=== PATIENT | male | born 1945 | race Caucasian/White ===

== ENCOUNTER → 2020-01-12 14:09 | Outpatient (BNVA) | payer MEDICARE, OTHER, SELFPAY | PROVIDERS: PCP Internal Medicine; Referring Provider Internal Medicine; Visit Provider Internal Medicine Endocrinology, Diabetes & Metabolism | DX: E11.65 Type 2 diabetes mellitus with hyperglycemia (principal); E11.3599 Type 2 diabetes mellitus with proliferative diabetic retinopathy without macular edema, unspecified eye; E11.42 Type 2 diabetes mellitus with diabetic polyneuropathy; Z79.4 Long term (current) use of insulin; E21.3 Hyperparathyroidism, unspecified; E78.5 Hyperlipidemia, unspecified; I10 Essential (primary) hypertension; Z79.899 Other long term (current) drug therapy | CPT/HCPCS: 82947; 99214 ==

== ENCOUNTER 2020-09-04 13:55 | Emergency (ER) | payer MEDICARE, OTHER, SELFPAY | END 2020-09-04 16:25 | disposition left against medical advice (07) | PROVIDERS: Emergency Provider Emergency Medicine; PCP Internal Medicine | DX: M79.605 Pain in left leg (principal) ==

== ENCOUNTER 2020-09-05 12:06 | Emergency (ER) | payer MEDICARE, OTHER, SELFPAY ==
--- NOTE | ~2020-09-05 | XR_ITS ---
EXAMINATION: XR LUMBOSACRAL SPINE CLINICAL INFORMATION: Back pain. COMPARISON: None TECHNIQUE: Three views of the lumbosacral spine. FINDINGS: Moderate to severe degenerative disc disease is seen at L4-L5 and L5-S1, more pronounced at L5-S1 with disc space narrowing, sclerosis and adjacent endplates and prominent marginal osteophyte formation. There is normal spinal alignment. No acute fracture is seen. The soft tissues are unremarkable. XR/XR lumbar spine 2-3V IMPRESSION: L4-L5 and L5-S1 moderate to severe degenerative disc disease. No acute abnormality.
--- NOTE | ~2020-09-05 | XR_ITS ---
EXAMINATION: XR HIP, LEFT CLINICAL INFORMATION: Sciatic pain COMPARISON: Radiographs lumbar spine 09/05/2020. TECHNIQUE: Two views of the left hip and AP pelvis. FINDINGS: The left hip shows no fracture or dislocation. No focal joint narrowing or erosive change. The bony pelvis appears intact. There is no diastases SI joints or pubis. There are degenerative changes lower lumbar spine with disc narrowing and vertebral spurring. XR/XR hip LT min 2V IMPRESSION: 1. Unremarkable left hip. 2. Degenerative disc changes lower lumbar spine.
[2020-09-05 13:15] VITALS: BP 180/82; PULSE 62; RESP 18; TEMP 36.6; O2SAT 98; BMI 29.8
[2020-09-05] MEDS: Acetaminophen 325 MG TABLET 650 MG PO (14:15)
--- NOTE | 2020-09-05 14:31 | ED_ITS ---
HPI - Back Pain/Injury General Chief Complaint: Back Pain/Injury Stated Complaint: Sciatica pain Time Seen by Provider: 09/05/20 13:43 Source: patient Mode of arrival: ambulatory Limitations: no limitations History of Present Illness HPI Narrative: 75-year-old male with history of diabetes, diabetic neuropathy, hypertension, who presents the emergency department with worsening left low back pain with radiation down the left leg. Patient states he has felt this many times before states he knows he has sciatic on and it will typically flare and improve on its own however patient has had this discomfort over the last month without improvement. He tried to make an appointment with his primary care doctor who could not see him until November. He has been taking naproxen with minimal relief. States it is worse when he sits or lays down. States he is actually able to walk around without significant difficulty but when he goes to sit he is in excruciating pain. Denies any issues with urinating or stooling. Denies any numbness or tingling in the private region. Denies any chest pain, shortness breath, abdominal pain. Due to concern and frustration he felt he needed to be seen. Related Data Home Medications Medication Instructions Recorded Confirmed blood sugar diagnostic #10 ea 01/12/20 01/12/20 lancets 30 gauge #100 ea 01/12/20 01/12/20 multivitamin 1 tab PO DAILY 01/12/20 01/12/20 omega-3 fatty acids-fish oil 340 1 cap PO DAILY 01/12/20 01/12/20 mg-1,000 mg capsule Previous Rx's Medication Instructions Recorded aspirin 81 mg tablet,delayed 81 mg PO DAILY 30 Days #30 tab 01/05/20 release blood sugar diagnostic #300 ea 01/12/20 insulin degludec 100 unit/mL (3 30 unit SUBCUT DAILY #45 ml 01/12/20 mL) subcutaneous pen lancets 33 gauge #300 ea 01/12/20 pen needle, diabetic 32 gauge x #450 ea 01/12/20 gabapentin 100 mg capsule 200 mg PO BEDTIME 90 Days #180 cap 01/19/20 lisinopril 40 mg tablet 40 mg PO DAILY #90 tab 03/12/20 pravastatin 40 mg tablet 40 mg PO DAILY #90 tab 03/13/20 insulin aspart U-100 100 unit/mL 1 - 25 unit SUBCUT TID 30 Days #45 05/01/20 (3 mL) subcutaneous pen ml isosorbide mononitrate 60 mg 60 mg PO DAILY #90 tab 07/10/20 tablet,extended release 24 hr dulaglutide 1.5 mg/0.5 mL 1.5 mg SUBCUT QWEEK 90 Days #6.5 ml 08/13/20 subcutaneous pen injector naproxen 500 mg tablet 500 mg PO Q12H PRN 30 Days #60 tab 09/02/20 acetaminophen [Tylenol] 650 mg PO Q6H PRN #60 tab 09/05/20 cyclobenzaprine 5 mg PO TID PRN 5 Days #15 tab 09/05/20 Allergies Allergy/AdvReac Type Severity Reaction Status Date / Time Seafood Allergy Mild DIFFICULTY Uncoded 12/14/19 15:29 BREATHING Review of Systems Review of Systems: Constitutional : No Weight loss, No Fever, No Chills, No Night Sweats, No Fatigue, No Malaise ENT/Mouth : No Hearing loss, No Ear Pain, No Nasal Congestion, No Sinus Pain, No Hoarseness, No sore throat, No Rhinorrhea, No Swallowing Difficulty Eyes: No Eye Pain, No Swelling, No Redness, No Foreign Body, No Discharge, No Vision Changes Cardiovascular : No Chest Pain, No SOB, No Dyspnea on Exertion, No Orthopnea, No Edema, No Palpitations Respiratory : No Cough, No Sputum, No Wheezing, No Smoke Exposure, No Dyspnea Gastrointestinal : No Nausea, No Vomiting, No Diarrhea, No Constipation, No abdominal Pain, No Hematochezia, No Melena Genitourinary : no irregular bleeding, No Dysuria, No Urinary Frequency, No Hematuria, No Urinary Incontinence, No Urgency, No Flank Pain, No Urinary Flow Changes, No Hesitancy Musculoskeletal : + back pain, No joint pain, + Myalgias, No Joint Swelling Skin : No Skin Lesions, No rash Neuro : No Weakness, No Numbness, No Paresthesias, No Loss of Consciousness, No Dizziness, No Headache Psych : No Anxiety/Panic, No Depression, No SI/HI/AH/VH, No Social Issues, Heme/Lymph: No Bruising, No Bleeding,No Lymphadenopathy Endocrine : No Polyuria, No Polydipsia, No Temperature Intolerance [facility] Past Medical History Attestation statement: The following information was validated with the patient. Source: old records reviewed and nursing notes reviewed Medical History (Updated 09/05/20 @ 15:38 by JARED Tracy) Diabetes type 2, uncontrolled Diabetic polyneuropathy associated with type 2 diabetes mellitus Dyslipidemia Hyperparathyroidism Hypertension detention (current) use of insulin Long-term use of aspirin therapy Proliferative diabetic retinopathy Surgical History (Updated 01/12/20 @ 11:22 by Bethany Patterson LPN) Hx of heart surgery Family History Family History (Updated 01/12/20 @ 11:23 by Bethany Patterson LPN) Father No problems noted. Mother Diabetes Physical Exam Vital Signs: Vital Signs: Last Vital Signs Temp 98 F 09/05/20 13:15 Pulse 62 09/05/20 13:15 Resp 18 09/05/20 13:15 BP 180/82 H 09/05/20 13:15 Pulse Ox 98 09/05/20 13:15 Body Mass Index 29.8 vital signs have been reviewed as normal and appeared to be correct. Blood pressure normal. Heart rate normal. Respiration rate normal. Temperature normal. Oxygen saturation normal. Appearance: Alert. Oriented X3. No acute distress. Head: Normal external exam. Normocephalic. Atraumatic. No Crews signs noted. No raccoon eyes noted Eyes: Conjunctiva and sclera normal. ENT: EAC normal. Moist mucous membranes. No drooling noted. No muffled voice noted. Neck: Normal inspection. Neck supple. FROM. No meningeal signs. CVS: Pulses normal throughout. Respiratory: No respiratory distress. Painless inspiration. No accessory muscle usage noted Abdomen: No visible injury noted. Soft nd/nt Back: Full range of motion noted. No midline lumbar pain to palpation. Skin: Skin warm and dry. Normal skin color. Normal skin turgor. Extremities: No lower extremity edema. Extremities exhibit normal range of motion. No reproducible pain to palpation. Good distal pulses, sensation intact. Neuro: Oriented X 3. No motor deficit. No sensory deficit. Course Reevaluation(s) Reevaluation #1: Patient's x-ray with evidence of severe degenerative changes in the lumbar spine normal hip x-ray. Had Case Management set up outpatient physi nereida therapy for patient. Will discharge home with cyclobenzaprine to use as well as recommendations for the additional Tylenol for pain control. Will also contact patient's primary care doctor to ensure close follow-up. Patient is comfortable with this plan will discharge home at this time. MDM - Back Pain/Injury MDM Narrative Medical decision making narrative: Patient's vital signs are stable and she is afebrile. Patient presenting to the emergency department with acute on chronic left low back pain with radiation into the left leg consistent with sciatica. Given patient's age will obtain a plain film of the left hip and left lumbar spine to ensure the absence of acute fracture. Patient without any gross neurologic deficits no acute concern for SCA or cauda equina syndrome. Patient with full range of motion of left hip no acute concern for septic joint. Patient already taking naproxen will give oral dose of Tylenol. Feel the patient would highly benefit from physical therapy to help with this acute inflammation as well as muscle relaxer for home if x-rays are normal will con tinue to monitor reassess pending the bowel. Of note no acute concern for UTI no flank pain no CVA tenderness. Discharge Plan Discharge Clinical Impression: Sciatica Qualifiers: Laterality: left Qualified Code(s): M54.32 - Sciatica, left side Back pain Qualifiers: Back pain location: low back pain Chronicity: acute Back pain laterality: left Sciatica presence: with sciatica Sciatica laterality: sciatica of left side Qualified Code(s): M54.42 - Lumbago with sciatica, left side Patient Disposition: Home, Self-Care Instructions: Sciatica (ED) Additional Instructions: You were seen in the emergency department today for left-sided back pain that r adiates down the leg. An x-ray of the hip was performed and was normal. An x- ray of the back was performed showing L4-L5, L5-S1 degenerative joint and disc disease which is likely causing compression on one of your nerves in sending pain down the left leg. This is also known as sciatica. Continue taking naproxen as directed. He will be prescribed Tylenol as well to use for pain and a short course of a muscle relaxer to help with muscular spasm. You were referred to physical therapy today someone should be in touch to schedule your 1st appointment. You were scheduled for a follow-up appointment with your primary care doctor Dr. Mullen for September 18 at 12:45 please do not miss this appointment. Continue to encourage fluids for hydration. Continue to stay active this is very important. Please return to the ED if her pain gets significantly worse, you cannot pee or poop or you develop a high fever. Prescriptions: New acetaminophen [Tylenol] 325 mg tablet 650 mg PO Q6H PRN (Reason: pain) Qty: 60 RF: 0 cyclobenzaprine 5 mg tablet 5 mg PO TID PRN (Reason: muscle spasm) 5 Days Qty: 15 RF: 0 No Action aspirin 81 mg tablet,delayed release (DR/EC) 81 mg PO DAILY 30 Days Qty: 30 RF: 11 gabapentin 100 mg capsule 200 mg PO BEDTIME 90 Days Qty: 180 RF: 3 lisinopril 40 mg tablet 40 mg PO DAILY Qty: 90 RF: 1 pravastatin 40 mg tablet 40 mg PO DAILY Qty: 90 RF: 1 insulin aspart U-100 [Novolog Flexpen U-100 Insulin] 100 unit/mL (3 mL) insulin pen 1 - 25 unit subcut TID 30 Days Qty: 45 RF: 3 isosorbide mononitrate 60 mg tablet extended release 24 hr 60 mg PO DAILY Qty: 90 RF: 1 dulaglutide [Trulicity] 1.5 mg/0.5 mL pen injector 1.5 mg subcut QWEEK 90 Days Qty: 6.5 RF: 1 naproxen 500 mg tablet 500 mg PO Q12H PRN (Reason: pain) 30 Days Qty: 60 RF: 6 (DME) OneTouch Verio test strips Strip See Rx Instructions ea Not Applicable .MEDSUPPLY Qty: 10 RF: 0 (DME) lancets 30 gauge misc See Rx Instructions ea .ROUTE .MEDSUPPLY Qty: 100 RF: 0 Fish Oil 340-1,000 mg capsule 1 cap PO DAILY RF: 0 multivitamin Tablet 1 tab PO DAILY RF: 0 insulin degludec 100 unit/mL (3 mL) insulin pen 30 unit subcut DAILY Qty: 45 RF: 4 (DME) pen needle, diabetic 32 gauge x 5/32 needle See Rx Instructions ea subcut .MEDSUPPLY Qty: 450 RF: 1 (DME) OneTouch Verio test strips Strip See Rx Instructions .ROUTE .MEDSUPPLY Qty: 300 RF: 3 (DME) lancets [OneTouch Delica Lancets] 33 gauge misc See Rx Instructions .ROUTE .MEDSUPPLY Qty: 300 RF: 3 Referrals: Zaria Barnes MD [Primary Care Provider] - 09/18/20 12:45 pm (For Follow Up appointment! Do not miss this appointment) Interventions: ED Discharge Assessment Last Done: 09/05/20 16:07 Discharge Date/Time: 09/05/20 16:08 Print Language: Uzbek
--- NOTE | 2020-09-05 15:31 | MHC.CM.ED ---
Received case management consult from Manisha. Patient came to ER due to sciatica pain. Work up is essentially negative. Patient will need physical therapy. Met with patient in regards to discharge planning. Patient lives with his , ambulates independently and had no services prior to coming to the ER. Patient had his 2nd Pfizer in June. Home physical therapy offered. Patient requesting outpatient therapy at [facility] [place] [place] [facility]. T/W spoke with Dr Sebas Page s office. They will order outpatient physical therapy eval. Patient, Sindhu COKER and Manisha COLEMAN aware. Continue to monitor for d/c needs.
== END 2020-09-05 16:08 | disposition home or self-care (01) ==
PROVIDERS: Emergency Provider Emergency Medicine Emergency Medical Services; PCP Internal Medicine
DX: M54.42 Lumbago with sciatica, left side (principal); I10 Essential (primary) hypertension; E78.5 Hyperlipidemia, unspecified; E11.9 Type 2 diabetes mellitus without complications; Z79.4 Long term (current) use of insulin; Z79.82 Long term (current) use of aspirin
CPT/HCPCS: 72100; 73502; 99284

== ENCOUNTER 2020-09-10 13:20 | Outpatient (REF) | payer MEDICARE, OTHER, SELFPAY ==
[2020-09-10 15:08] LABS: Hematocrit 42.6 % (42-52); Mean Corpuscular HGB Conc 32.9 g/dl (31.0-36.0); Mean Corpuscular Hemoglobin 27.5 pg (27.0-33.0); Mean Corpuscular Volume 83.5 fL (80-98); Mean Platelet Volume 12.3 fL (9.4-12.4); Platelet Count 285 X10*3/uL (160-400); Red Cell Distribution Width 14.1 % (11.0-16.0); White Blood Count 10.2 X10*3/uL (4.8-10.8)
[2020-09-10 15:48] LABS: Alanine Aminotransferase 11 U/L (0-40); Albumin Level 3.9 g/dL (3.5-5.0); Alkaline Phosphatase 80 U/L (39-117); Anion Gap 10 (12-20); Aspartate Amino Transferase 21 U/L (5-37); Bilirubin Total 0.6 mg/dL (0.0-1.0); Blood Urea Nitrogen 21 mg/dL (9-16); Calcium 10.5 mg/dL (8.4-10.2); Carbon Dioxide 29 mmol/L (22-29); Chloride 107 mmol/L (96-108); Cholesterol 135 mg/dL; Estimated Glomerular Filt Rate > 60; Glucose Random 116 mg/dL (60-115); HDL Cholesterol 44 mg/dL; LDL Cholesterol Calculated 72 mg/dl; Potassium 5.1 mmol/L (3.3-5.1); Sodium 141 mmol/L (135-145); Total Protein 6.9 g/dL (6.5-8.0); Triglycerides 96 mg/dL
[2020-09-10 15:59] LABS: Vitamin B12 > 2000 pg/mL (200-900)
[2020-09-10 16:05] LABS: Creatinine Urine 117.63 mg/dL; Microalbum/Creatinine Ratio Ur 28.9 ug/mg cr
[2020-09-11 19:11] LABS: LDL Cholesterol Direct 79 mg/dL (<100)
[2020-09-13 23:32] LABS: Fructosamine 286 umol/L (205-285)
== END 2020-09-10 13:21 | disposition home or self-care (01) ==
LOC: HO.LAB 13:20
PROVIDERS: PCP Internal Medicine; Visit Provider Internal Medicine Endocrinology, Diabetes & Metabolism
DX: E11.65 Type 2 diabetes mellitus with hyperglycemia (principal); E11.42 Type 2 diabetes mellitus with diabetic polyneuropathy; E11.3599 Type 2 diabetes mellitus with proliferative diabetic retinopathy without macular edema, unspecified eye; E78.5 Hyperlipidemia, unspecified; I10 Essential (primary) hypertension; E21.3 Hyperparathyroidism, unspecified; Z79.4 Long term (current) use of insulin
CPT/HCPCS: 36415; 80053; 80061; 82043; 82607; 82947; 82985; 83721; 85027; 99212

== ENCOUNTER 2020-09-12 12:48 | Outpatient (REF) | payer MEDICARE, OTHER, SELFPAY ==
--- NOTE | ~2020-09-12 | MM_ITS ---
EXAMINATION: BONE DENSITOMETRY CLINICAL INDICATION: Hyperparathyroidism, unspecified. COMPARISON: None (current study represents initial baseline exam). TECHNIQUE: Using a Optifreeze DXA System (software version: 13.1) manufactured by [employer], dual-energy x-ray absorptiometry was performed of the lumbar spine and left forearm radius 33%. The images are of good technical quality. Summary results are attached. FINDINGS: AP SPINE L1-L3 (excluding L4): The data of L1-L4 has been changed to exclude the L4 vertebral body, because degenerative changes at this level may cause overestimation of lumbar spine density. BMD 1.110 g/cm2, Z-score -0.4, T-score -0.8, normal. LEFT FEMUR, NECK: BMD 1.051 g/cm2, Z-score 1.1, T-score -0.1, normal. LEFT FEMUR, TOTAL: BMD 1.002 g/cm2, Z-score 0.0, T-score -0.7, normal. LEFT FOREARM RADIUS 33%: BMD 0.855 g/cm2, Z-score -0.4, T-score -1.4, osteopenia. IDENTIFIED RISK FACTORS: Height loss, hyperparathyroid, secondary osteoporosis, anticonvulsant. HISTORY OF FRACTURE: None listed. MEDICATIONS: Vitamin D, multivitamin. MM/XR DEXA appendicular skeleton IMPRESSION: 1. DIAGNOSIS: Osteopenia based on the lowest T-score value of -1.4 in the forearm radius 33% applying World Health Organization criteria. 2. 10-YEAR FRACTURE RISK PREDICTION, FRAX: Major osteoporotic fracture (clinical spine, forearm, hip or shoulder) 2.6%. Hip fracture 0.4%. 3. Treatment Recommendations: NOF guidelines recommend consideration for treatment in postmenopausal women and men age 50 and older presenting with the following: -A hip or vertebral (clinical or morphometric) fracture. -T-score less than or equal to -2.5 at the femoral neck or spine after appropriate evaluation to exclude secondary causes. -Low bone mass at the hip or spine and a 10-year fracture probability by FRAX of greater than or equal to 3% for hip fracture or greater than or equal to 20% for major osteoporotic fracture based on the [place] adapted WHO algorithm. 4. Other Recommendations: All treatment decisions require clinical judgment and consideration of individual patient factors, including patient preferences, comorbidities, previous drug use, risk factors not captured in the FRAX model (e.g. frailty, falls, vitamin D deficiency, increased bone turnover, interval significant decline in bone density) and possible under or overestimation of fracture risk by FRAX. Additional medical evaluation for secondary cause of low bone mineral density may be appropriate. FUTURE SCAN RECOMMENDATION: People with diagnosed cases of osteoporosis or at high risk for fracture should have regular bone mineral density tests. For patients eligible for Medicare, routine testing is allowed once every 2 years. The testing frequency can be increased to one year for patients who have rapidly progressing disease, those who are receiving or discontinuing medical therapy to restore bone mass, or have additional risk factors.
== END 2020-09-12 12:49 | disposition home or self-care (01) ==
LOC: HO.MAMMO 12:48
PROVIDERS: PCP Internal Medicine; Visit Provider Internal Medicine Endocrinology, Diabetes & Metabolism
DX: M81.8 Other osteoporosis without current pathological fracture (principal); E21.0 Primary hyperparathyroidism; Z79.899 Other long term (current) drug therapy
CPT/HCPCS: 77081

== ENCOUNTER 2020-09-17 06:51 | Outpatient (REF) | payer MEDICARE, OTHER, SELFPAY ==
--- NOTE | ~2020-09-17 | US_ITS ---
EXAMINATION: US THYROID CLINICAL INFORMATION: Hyperparathyroidism COMPARISON: None TECHNIQUE: Linear transducer grayscale and color Doppler examination with attention to the region of the thyroid. FINDINGS: SIZE: Measurements of the thyroid lobes and nodules are given in sagittal, anteroposterior and transverse dimensions respectively. Right Thyroid Lobe: 4.6 x 1.5 x 1.5 cm, volume 5.4 mL. Parenchyma: The gland echotexture is homogeneous. Thyroid vascularity is normal. Left Thyroid Lobe: 4.0 x 1.5 x 1.7 cm, volume 5.3 mL. Parenchyma: The gland echotexture is homogeneous. Thyroid vascularity is normal. Isthmus: 0.4 cm in maximum AP dimension. Estimated total number of nodules greater than or equal to 1 cm: 0. Hydrogen Treater nodules are described as follows: 1. Location: Inferior isthmus. Size: 0.6 x 0.9 x 0.8 cm, volume 0.23 mL. Nodule characteristics: Composition: Solid (2). Echogenicity: Isoechoic (1). Shape: Not taller than wide (0). Margins: Smooth (0). Echogenic Foci: None (0). ACR TI-RADS total points: 3 ACR TI-RADS category: 3 2. Location: Right mid. Size: 0.2 x 0.2 x 0.2 cm, volume 0.004 mL. Nodule characteristics: Composition: Cystic(0). ACR TI-RADS total points: 0 ACR TI-RADS category: 1 NODES: No lymphadenopathy is seen in the tissue surrounding the thyroid gland. There is a 4 x 5 x 9 mm solid hypoechoic lesion posterior to the lower right thyroid lobe. This does not appear hypervascular. There is a 8 x 4 x 3 mm hyperechoic lesion posterior to the lower left thyroid lobe. This does not appear vascular. US/US thyroid IMPRESSION: Small thyroid nodules. Bilateral nonspecific soft tissue nodules inferior to the thyroid gland. These do not have typical ultrasound appearance of parathyroid adenomas, i.e. hypoechoic and hypervascular. ACR TI-RADS RECOMMENDATION REFERENCE: Ultrasound-guided fine-needle aspiration, followup ultrasound, no further follow up. * TR1 (0 point) and TR 2 (2 points): No FNA or follow up * TR3 (3 points): FNA if more than or equal to 2.5 cm in maximum dimension, followup ultrasound in 1, 3 and 5 years if 1.5 to 2.4 cm in maximum dimension. * TR4 (4-6 points): FNA if more than or equal to 1.5 cm in maximum dimension, followup ultrasound in 1, 2, 3 and 5 years if 1 to 1.4 cm in maximum dimension. * TR5 (more than or equal to 7 points): FNA if more than or equal to 1 cm in maximum dimension, followup ultrasound every year for 5 years if 0.5 to 0.9 cm in maximum dimension. * TR3, TR4 or TR5 nodules that are below the size threshold for follow up receive no follow up.
[2020-09-17 08:14] LABS: Alanine Aminotransferase 13 U/L (0-40); Albumin Level 3.9 g/dL (3.5-5.0); Alkaline Phosphatase 78 U/L (39-117); Anion Gap 10 (12-20); Aspartate Amino Transferase 20 U/L (5-37); Bilirubin Total 0.5 mg/dL (0.0-1.0); Blood Urea Nitrogen 25 mg/dL (9-16); Carbon Dioxide 29 mmol/L (22-29); Chloride 107 mmol/L (96-108); Estimated Glomerular Filt Rate > 60; Glucose Fasting 95 mg/dL (60-99); Magnesium 1.7 mg/dL (1.6-2.6); Phosphorus 2.8 mg/dL (2.7-4.5); Potassium 4.7 mmol/L (3.3-5.1); Sodium 141 mmol/L (135-145); Total Protein 6.9 g/dL (6.5-8.0)
[2020-09-17 08:38] LABS: Vitamin D 25-OH Total 44.4 ng/mL (>30)
[2020-09-18 12:22] LABS: Calcium (PTHI) 10.1 mg/dL (8.6-10.3); PTHI 61 pg/mL (14-64)
[2020-09-18 14:02] LABS: Calcium, Ionized 5.7 mg/dL (4.8-5.6)
[2020-09-21 09:17] LABS: Alkaline Phosphatase Bone 10.4 mcg/L (see note)
[2020-09-21 11:42] LABS: VITAMIN D (1,25 OH) D3 39 pg/mL; Vit D (1,25-Dihydroxy) Total 39 pg/mL (18-72); Vitamin D (1,25 OH) D2 <8 pg/mL
== END 2020-09-17 06:52 | disposition home or self-care (01) ==
LOC: HO.HMGCX 06:51
PROVIDERS: PCP Internal Medicine; Visit Provider Internal Medicine Endocrinology, Diabetes & Metabolism
DX: E21.3 Hyperparathyroidism, unspecified (principal)
CPT/HCPCS: 36415; 76536; 80053; 82306; 82330; 82652; 83735; 83970; 84075; 84100

== ENCOUNTER 2020-09-23 13:15 | Outpatient (REF) | payer MEDICARE, OTHER, SELFPAY ==
[2020-09-23 14:07] LABS: Total Volume 24 Hour Urine 3000 mL
[2020-09-23 14:09] LABS: Creatinine, 24Hr Urine 1.2 G/Day (1.0-2.0); Creatinine, mg/dL 40.51
[2020-09-24 19:27] LABS: Calcium, 24 Hr Urine 219 mg/24 h; Calcium/Creatinine Ratio 170 mg/g creat (30-210); Creatinine 24Hr Urine 1.29 g/24 h (0.50-2.15)
== END 2020-09-23 13:16 | disposition home or self-care (01) ==
LOC: HO.LNP 13:15
PROVIDERS: Visit Provider Internal Medicine Endocrinology, Diabetes & Metabolism
DX: E21.3 Hyperparathyroidism, unspecified (principal)
CPT/HCPCS: 82340; 82570

== ENCOUNTER 2020-11-13 14:54 | Outpatient (RCR) | payer MEDICARE, OTHER, SELFPAY | END 2021-05-23 14:24 | disposition home or self-care (01) | LOC: HO.PT 14:54 | PROVIDERS: PCP Internal Medicine; Visit Provider Internal Medicine | DX: E11.42 Type 2 diabetes mellitus with diabetic polyneuropathy (principal) ==

== ENCOUNTER 2021-08-21 15:20 | Outpatient (REF) | payer MEDICARE, OTHER, SELFPAY ==
[2021-08-21 18:08] LABS: Creatinine Urine 193.76 mg/dL; Microalbum/Creatinine Ratio Ur 12.9 ug/mg cr
[2021-08-22 14:21] LABS: Calcium (PTHI) 10.4 mg/dL (8.6-10.3); PTHI 61 pg/mL (16-77)
== END 2021-08-21 15:21 | disposition home or self-care (01) ==
LOC: HO.LAB 15:20
PROVIDERS: PCP Internal Medicine; Visit Provider Internal Medicine Endocrinology, Diabetes & Metabolism
DX: E11.65 Type 2 diabetes mellitus with hyperglycemia (principal); E21.3 Hyperparathyroidism, unspecified; E04.1 Nontoxic single thyroid nodule
CPT/HCPCS: 36415; 82043; 82947; 83970; 99212

== ENCOUNTER → 2021-09-15 13:10 | Outpatient (BNVA) | payer MEDICARE, OTHER, SELFPAY | PROVIDERS: PCP Internal Medicine; Visit Provider Registered Nurse Diabetes Educator | DX: E11.9 Type 2 diabetes mellitus without complications (principal); Z71.89 Other specified counseling | CPT/HCPCS: 99211 ==

== ENCOUNTER 2022-01-01 07:55 | Outpatient (REF) | payer MEDICARE, OTHER, SELFPAY ==
[2022-01-01 10:28] LABS: Alanine Aminotransferase 16 U/L (0-40); Alkaline Phosphatase 82 U/L (39-117); Anion Gap 14 (12-20); Aspartate Amino Transferase 23 U/L (5-37); Bilirubin Total 0.7 mg/dL (0.0-1.0); Blood Urea Nitrogen 20 mg/dL (9-16); Carbon Dioxide 30 mmol/L (22-29); Chloride 103 mmol/L (96-108); Cholesterol 155 mg/dL; Estimated Glomerular Filt Rate > 60; Glucose Fasting 97 mg/dL (60-99); HDL Cholesterol 47 mg/dL; LDL Cholesterol Calculated 93 mg/dl; Potassium 4.6 mmol/L (3.3-5.1); Sodium 142 mmol/L (135-145); Total Protein 7.1 g/dL (6.5-8.0); Triglycerides 76 mg/dL
[2022-01-01 10:35] LABS: Vitamin D 25-OH Total 45.6 ng/mL (>30)
[2022-01-01 10:45] LABS: Creatinine Urine 53.24 mg/dL; Microalbum/Creatinine Ratio Ur 18.7 ug/mg cr
[2022-01-02 13:22] LABS: PTHI 69 pg/mL (16-77)
[2022-01-07 06:12] LABS: Calcium, Ionized 5.5 mg/dL (4.8-5.6)
== END 2022-01-01 07:56 | disposition home or self-care (01) ==
LOC: HO.LAB 07:55
PROVIDERS: PCP Internal Medicine; Visit Provider Internal Medicine
DX: E78.5 Hyperlipidemia, unspecified (principal); E21.3 Hyperparathyroidism, unspecified; E11.42 Type 2 diabetes mellitus with diabetic polyneuropathy
CPT/HCPCS: 36415; 80053; 80061; 82043; 82306; 82330; 83970

== ENCOUNTER 2022-01-30 06:02 | Outpatient (REF) | payer MEDICARE, OTHER, SELFPAY ==
[2022-01-30 07:58] LABS: Creatinine Urine 153.11 mg/dL; Microalbum/Creatinine Ratio Ur 24.8 ug/mg cr
[2022-01-30 08:05] LABS: Alanine Aminotransferase 19 U/L (0-40); Albumin Level 4.1 g/dL (3.5-5.0); Alkaline Phosphatase 101 U/L (39-117); Anion Gap 14 (12-20); Aspartate Amino Transferase 23 U/L (5-37); Bilirubin Total 0.5 mg/dL (0.0-1.0); Blood Urea Nitrogen 21 mg/dL (9-16); Calcium 10.3 mg/dL (8.4-10.2); Carbon Dioxide 28 mmol/L (22-29); Chloride 102 mmol/L (96-108); Cholesterol 152 mg/dL; Estimated Glomerular Filt Rate > 60; Glucose Fasting 134 mg/dL (60-99); HDL Cholesterol 47 mg/dL; LDL Cholesterol Calculated 77 mg/dl; Potassium 4.1 mmol/L (3.3-5.1); Sodium 140 mmol/L (135-145); Total Protein 7.2 g/dL (6.5-8.0); Triglycerides 144 mg/dL
[2022-01-30 08:28] LABS: Vitamin D 25-OH Total 47.3 ng/mL (>30)
== END 2022-01-30 06:03 | disposition home or self-care (01) ==
LOC: HO.LAB 06:02
PROVIDERS: PCP Internal Medicine; Visit Provider Internal Medicine
DX: E55.9 Vitamin D deficiency, unspecified (principal); E78.5 Hyperlipidemia, unspecified; E11.65 Type 2 diabetes mellitus with hyperglycemia
CPT/HCPCS: 36415; 80053; 80061; 82043; 82306

== ENCOUNTER → 2022-02-18 12:17 | Outpatient (BNVA) | payer MEDICARE, OTHER, SELFPAY | PROVIDERS: PCP Internal Medicine; Visit Provider Internal Medicine Endocrinology, Diabetes & Metabolism | DX: E11.65 Type 2 diabetes mellitus with hyperglycemia (principal); E21.3 Hyperparathyroidism, unspecified; E04.1 Nontoxic single thyroid nodule | CPT/HCPCS: 82947; 99212 ==

== ENCOUNTER 2022-07-06 07:47 | Day surgery (SDC) | payer MEDICARE, OTHER, SELFPAY ==
[2022-07-06 08:17] VITALS: BMI 29.0
--- NOTE | 2022-07-06 08:33 | HO.ANESPROP2 ---
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 Mother Diabetes Family history of problems with anesthesia: No Surgical History Surgical History (Updated 07/06/22 @ 08:17 by Tracy Calle RN) Hx of colonoscopy Hx of heart artery stent History of Problems with Anesthesia: No Social History Social History Housing: Apartment Alcohol intake: current Alcohol intake frequency: holidays/special occasions only Alcohol type: beer Patient Tobacco Use Status: Never used Tobacco e-Cigarette/Vaping Use: Never Used Second Hand Smoke Exposure: No Use of substances other than those prescribed or required for medical reasons: No Are you DNR?: No Advance Directives: No Advance Directives Information Provided: Yes service: No Current occupational status: disabled Cognitive needs: No Hearing needs: No Vision needs: Yes Meds Allergies Allergy/AdvReac Type Severity Reaction Status Date / Time Seafood Allergy Mild DIFFICULTY Uncoded 07/06/22 08:16 BREATHING Active Medications: Current Medications Lactated Ringer's (Lr) 1,000 mls @ 50 mls/hr IVCONT .Q20H TASIA Sodium Biphosphate/Sodium Phosphate (Sodium Phosphate,[place]-Dibasic 133 Ml Enema) 133 ml MT ONCE PRN PRN Reason: Poor Colonoscopy Prep Results Home Medications Medication Instructions Recorded Confirmed Last Taken Type blood sugar diagnostic #10 ea 01/12/20 07/06/22 Unknown History lancets 30 gauge #100 ea 01/12/20 07/06/22 Unknown History multivitamin 1 tab PO DAILY 01/12/20 07/06/22 Unknown History omega-3 fatty acids-fish oil 340 1 cap PO DAILY 01/12/20 07/06/22 06/29/22 History mg-1,000 mg capsule ascorbic acid (vitamin C) 500 mg 500 mg PO DAILY 07/06/22 07/06/22 Unknown History tablet (Vitamin C) vitamin B complex 1 tab PO DAILY 07/06/22 07/06/22 Unknown History Exam Exam Date and Time: July 06, 2022 0833 Height,Weight and Vital Signs: Height 5 ft 6 in Weight 81.647 kg Airway Mallampati Class: I TM Dist: >3cm Neck ROM: Full Heart: ok Lungs: ok Assessment and Plan Assessment Anesthesia Assessment: Anesthesia Plan Discussed and Chart Reviewed Final Anesthetic Review Family History of Problems with Anesthesia: No History of Problems with Anesthesia: No NPO: Yes ASA Class: III Final Preanesthetic Review: No Changes in Pt Med Stat, Meds/Allgs Chart Reviewed, Consent Obtained/Reviewed and Anes Risks/Benef Reviewed Patient Risk: Intermediate Procedure Risk: Low Anesthetic Plan Anesthetic Plan: MAC: and Agree w/ Assess. and Plan Disposition: Standard PACU
[2022-07-06 08:38] VITALS: BP 156/80; PULSE 89; RESP 16; TEMP 36.7; O2SAT 98
[2022-07-06 08:38] LABS: Glucose, Whole Blood 122 mg/dL (60-115)
[2022-07-06] MEDS: Lactated Ringers 1,000 ML 50 ML IVCONT (08:46)
--- NOTE | 2022-07-06 09:25 | P.CONAN_ITS ---
[facility] Active Problems Active Problems: All Active Problems (Updated 07/03/22 @ 08:59 by Natalee Parr, RN) Thyroid nodule (Acute) Diabetes mellitus (Acute) Lumbar degenerative disc disease (Acute) Diabetic polyneuropathy associated with type 2 diabetes mellitus (Acute) Proliferative diabetic retinopathy (Acute) Hypertension (Acute) Dyslipidemia (Acute) retirement (current) use of insulin (Acute) Diabetes type 2, uncontrolled (Acute) Long-term use of aspirin therapy (Acute) Past Medical History Medical History Diabetes mellitus Diabetes type 2, uncontrolled Diabetic polyneuropathy associated with type 2 diabetes mellitus Dyslipidemia Hyperparathyroidism Hypertension 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 Mother Diabetes Family history of problems with anesthesia: No Surgical History Surgical History (Updated 07/06/22 @ 08:17 by Tracy Calle RN) Hx of colonoscopy Hx of heart artery stent History of Problems with Anesthesia: No Social History Social History Housing: Apartment Alcohol intake: current Alcohol intake frequency: holidays/special occasions only Alcohol type: beer Patient Tobacco Use Status: Never used Tobacco e-Cigarette/Vaping Use: Never Used Second Hand Smoke Exposure: No Use of substances other than those prescribed or required for medical reasons: No Are you DNR?: No Advance Directives: No Advance Directives Information Provided: Yes service: No Current occupational status: disabled Cognitive needs: No Hearing needs: No Vision needs: Yes Meds Allergies Allergy/AdvReac Type Severity Reaction Status Date / Time Seafood Allergy Mild DIFFICULTY Uncoded 07/06/22 08:16 BREATHING Active Medications: Current Medications Acetaminophen (Acetaminophen 325 Mg Tablet) 650 mg PO ONCE PRN PRN Reason: Pain, Mild (Pain Scale 1-3) Lactated Ringer's (Lr) 1,000 mls @ 50 mls/hr IVCONT .Q20H TASIA Last Admin: 07/06/22 08:46 Dose: 50 mls/hr Ondansetron HCl (Ondansetron Hcl 4 Mg/2 Ml Vial) 4 mg IVPUSH ONCE PRN PRN Reason: Nausea and Vomiting Sodium Biphosphate/Sodium Phosphate (Sodium Phosphate,[place]-Dibasic 133 Ml Enema) 133 ml NH ONCE PRN PRN Reason: Poor Colonoscopy Prep Results Home Medications Medication Instructions Recorded Confirmed Last Taken Type blood sugar diagnostic #10 ea 01/12/20 07/06/22 Unknown History lancets 30 gauge #100 ea 01/12/20 07/06/22 Unknown History multivitamin 1 tab PO DAILY 01/12/20 07/06/22 Unknown History omega-3 fatty acids-fish oil 340 1 cap PO DAILY 01/12/20 07/06/22 06/29/22 History mg-1,000 mg capsule ascorbic acid (vitamin C) 500 mg 500 mg PO DAILY 07/06/22 07/06/22 Unknown History tablet (Vitamin C) vitamin B complex 1 tab PO DAILY 07/06/22 07/06/22 Unknown History Exam Exam Date and Time: July 06, 2022 0925 Height,Weight and Vital Signs: Height 5 ft 6 in Weight 81.647 kg Last Vital Signs Temp 98.0 F 07/06/22 08:38 Pulse 89 07/06/22 08:38 Resp 16 07/06/22 08:38 BP 156/80 H 07/06/22 08:38 Pulse Ox 98 07/06/22 08:38 O2 Del Method Room Air 07/06/22 08:38 Pertinent Lab Results Pertinent Lab Results: Laboratory Tests 07/06/22 08:33 POC Glucose 122 H Airway Mallampati Class: II TM Dist: >3cm Neck ROM: Full Heart: rr Lungs: cta Assessment and Plan Assessment Anesthesia Assessment: Anesthesia Plan Discussed and Chart Reviewed Final Anesthetic Review Family History of Problems with Anesthesia: No History of Problems with Anesthesia: No NPO: Yes ASA Class: II Final Preanesthetic Review: No Changes in Pt Med Stat, Meds/Allgs Chart Reviewed, Consent Obtained/Reviewed and Anes Risks/Benef Reviewed Patient Risk: Low Anesthetic Plan Anesthetic Plan: MAC:
[2022-07-06 10:02] VITALS: BP 86/48; PULSE 62; RESP 18; TEMP 36.1; O2SAT 95
--- NOTE | 2022-07-06 10:03 | P.BOP_ITS ---
Brief Operative Note Date of Service: 07/06/22 Pre-op diagnosis: Screening Post-op diagnosis: other (Colon polyp) Procedure: Colonoscopy to the cecum and TI with hot snare polypectomy x 1 and placement of 2 Resolution clips Surgeon: Marty Blackmon Anesthesia: MAC Was an Branch Employment Coordinator used for this Procedure?: No Estimated blood loss (mL): 0 Pathology: other (A. Colon polyp at 50cm) Condition: stable Disposition: PACU
[2022-07-06 10:13] VITALS: BP 126/68; PULSE 67; RESP 16; TEMP 36.1; O2SAT 95
--- NOTE | 2022-07-06 10:54 | HO.ANESPROP2 ---
REPLACED BY [facility] Active Problems Active Problems: All Active Problems (Updated 07/03/22 @ 08:59 by Natalee Parr, RN) Thyroid nodule (Acute) Diabetes mellitus (Acute) Lumbar degenerative disc disease (Acute) Diabetic polyneuropathy associated with type 2 diabetes mellitus (Acute) Proliferative diabetic retinopathy (Acute) Hypertension (Acute) Dyslipidemia (Acute) assisted (current) use of insulin (Acute) Diabetes type 2, uncontrolled (Acute) Long-term use of aspirin therapy (Acute) Past Medical History Medical History Diabetes mellitus Diabetes type 2, uncontrolled Diabetic polyneuropathy associated with type 2 diabetes mellitus Dyslipidemia Hyperparathyroidism Hypertension 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 Mother Diabetes Family history of problems with anesthesia: No Surgical History Surgical History (Updated 07/06/22 @ 08:17 by Tracy Calle RN) Hx of colonoscopy Hx of heart artery stent History of Problems with Anesthesia: No Social History Social History Housing: Apartment Alcohol intake: current Alcohol intake frequency: holidays/special occasions only Alcohol type: beer Patient Tobacco Use Status: Never used Tobacco e-Cigarette/Vaping Use: Never Used Second Hand Smoke Exposure: No Use of substances other than those prescribed or required for medical reasons: No Are you DNR?: No Advance Directives: No Advance Directives Information Provided: Yes service: No Current occupational status: disabled Cognitive needs: No Hearing needs: No Vision needs: Yes Meds Allergies Allergy/AdvReac Type Severity Reaction Status Date / Time Seafood Allergy Mild DIFFICULTY Uncoded 07/06/22 08:16 BREATHING Home Medications Medication Instructions Recorded Confirmed Last Taken Type blood sugar diagnostic #10 ea 01/12/20 07/06/22 Unknown History lancets 30 gauge #100 ea 01/12/20 07/06/22 Unknown History multivitamin 1 tab PO DAILY 01/12/20 07/06/22 Unknown History omega-3 fatty acids-fish oil 340 1 cap PO DAILY 01/12/20 07/06/22 06/29/22 History mg-1,000 mg capsule ascorbic acid (vitamin C) 500 mg 500 mg PO DAILY 07/06/22 07/06/22 Unknown History tablet (Vitamin C) vitamin B complex 1 tab PO DAILY 07/06/22 07/06/22 Unknown History Exam Exam Date and Time: July 06, 2022 1054 Height,Weight and Vital Signs: Height 5 ft 6 in Weight 81.647 kg Last Vital Signs Temp 97 F 07/06/22 10:13 Pulse 67 07/06/22 10:13 Resp 16 07/06/22 10:13 BP 126/68 07/06/22 10:13 Pulse Ox 95 07/06/22 10:13 O2 Del Method Room Air 07/06/22 10:13 Pertinent Lab Results Pertinent Lab Results: Laboratory Tests 07/06/22 08:33 POC Glucose 122 H Airway Mallampati Class: II TM Dist: >3cm Neck ROM: Full Heart: rr Lungs: cta Assessment and Plan Final Anesthetic Review Family History of Problems with Anesthesia: No History of Problems with Anesthesia: No ASA Class: II and III Patient Risk: Low Procedure Risk: Low Anesthetic Plan Disposition: Standard PACU
--- NOTE | 2022-07-06 11:35 | OP_ITS ---
DATE OF SERVICE: 07/06/2022 SURGEON: Marty Blackmon MD INDICATIONS: The patient presents for evaluation of colorectal cancer screening, personal history of tubular adenoma of the colon. Full consent has been obtained from him for this, including risks of bleeding and perforation. PREOPERATIVE DIAGNOSIS: POSTOPERATIVE DIAGNOSIS: PROCEDURE PERFORMED: Colonoscopy to the cecum and terminal ileum with hot snare polypectomy and placement of two Resolution clips. ESTIMATED BLOOD LOSS: COMPLICATIONS: ANESTHESIA: Monitored anesthesia care. ASSISTANTS: SPECIMENS: PREOPERATIVE DIAGNOSES: Colorectal cancer screening, personal history of tubular adenoma of the colon. POSTOPERATIVE DIAGNOSES: Colorectal cancer screening, personal history of tubular adenoma of the colon, colon polyp, diverticulosis and internal hemorrhoids. DESCRIPTION OF PROCEDURE: The patient was placed in the left lateral decubitus position. The digital rectal exam revealed no abnormalities. The Olympus video pediatric colonoscope was entered into the rectum and advanced easily to the cecum. Once in the cecum, I did identify a normal-appearing cecal pouch with appendiceal orifice and a normal-appearing ileocecal valve. The terminal ileum was cannulated and appeared normal. The scope was withdrawn back in the colon. The entire cecum was well visualized and appeared normal without any sign of mass or ulceration. The scope was slowly withdrawn assessing all mucosal surface carefully. Preparation was excellent. At 50 cm, there was a flat but slightly raised approximately 10 to 12 mm polyp. This was removed by hot snare polypectomy and recovered by suction. The polypectomy site appeared clean, without any sign of residual polyp nor bleeding. Two Resolution clips were placed with good deployment and good hemostasis. I did not visualize any other polyps, colitis, nor angiodysplasia. There was a moderate amount of sigmoid diverticulosis. In the rectum, the scope was retroflexed visualizing internal hemorrhoids. The rectal mucosa appeared normal. The scope was straightened out and withdrawn from the patient. He tolerated the procedure well and was returned to the recovery area in stable condition. IMPRESSION: 1. Colon polyp. 2. Diverticulosis. 3. Internal hemorrhoids. PLAN: Given today's findings and his age, I do not think he would need any further screening colonoscopies. As such, he will see me on a p.r.n. basis. He was advised not to use any fish oil nor NSAIDs for one week. He was advised to resume his aspirin by tomorrow. MD MANDO Franks/JOSE MIGUEL / [id number] SUNIL
== END 2022-07-06 10:51 | disposition home or self-care (01) ==
PROVIDERS: PCP Internal Medicine; Visit Provider Internal Medicine
PROC: 0DJD8ZZ Inspection of Lower Intestinal Tract, Via Natural or Artificial Opening Endoscopic (ICD-10-PCS; CPT 45378; principal; 2022-07-06 09:30)
DX: Z12.11 Encounter for screening for malignant neoplasm of colon (principal); K63.5 Polyp of colon; K57.30 Diverticulosis of large intestine without perforation or abscess without bleeding; K64.8 Other hemorrhoids; Z86.010 Personal history of colon polyps; E11.9 Type 2 diabetes mellitus without complications; I10 Essential (primary) hypertension; Z79.4 Long term (current) use of insulin
CPT/HCPCS: 45385; 82947; 88305

== ENCOUNTER → 2022-07-21 14:07 | Outpatient (BNVA) | payer MEDICARE, OTHER, SELFPAY | PROVIDERS: PCP Internal Medicine; Visit Provider Internal Medicine Endocrinology, Diabetes & Metabolism | DX: E11.65 Type 2 diabetes mellitus with hyperglycemia (principal); E04.1 Nontoxic single thyroid nodule; E21.3 Hyperparathyroidism, unspecified | CPT/HCPCS: 82947; 99212 ==

== ENCOUNTER 2022-09-01 08:01 | Outpatient (REF) | payer MEDICARE, OTHER, SELFPAY ==
[2022-09-01 08:55] LABS: Alanine Aminotransferase 19 U/L (0-40); Albumin Level 3.8 g/dL (3.5-5.0); Alkaline Phosphatase 79 U/L (39-117); Anion Gap 8 (12-20); Aspartate Amino Transferase 24 U/L (5-37); Bilirubin Total 0.5 mg/dL (0.0-1.0); Blood Urea Nitrogen 27 mg/dL (9-16); Calcium 9.7 mg/dL (8.4-10.2); Carbon Dioxide 30 mmol/L (22-29); Chloride 107 mmol/L (96-108); Cholesterol 137 mg/dL; Estimated Glomerular Filt Rate > 60; Glucose Fasting 136 mg/dL (60-99); HDL Cholesterol 41 mg/dL; LDL Cholesterol Calculated 83 mg/dl; Potassium 4.3 mmol/L (3.3-5.1); Sodium 141 mmol/L (135-145); Total Protein 6.4 g/dL (6.5-8.0); Triglycerides 66 mg/dL
[2022-09-01 09:00] LABS: Creatinine Urine 76.58 mg/dL; Microalbum/Creatinine Ratio Ur 19.5 ug/mg cr
[2022-09-01 09:12] LABS: Vitamin D 25-OH Total 48.9 ng/mL (>30)
== END 2022-09-01 08:02 | disposition home or self-care (01) ==
LOC: HO.LAB 08:01
PROVIDERS: PCP Internal Medicine; Visit Provider Internal Medicine
DX: E55.9 Vitamin D deficiency, unspecified (principal); E11.9 Type 2 diabetes mellitus without complications; E78.5 Hyperlipidemia, unspecified
CPT/HCPCS: 36415; 80053; 80061; 82043; 82306

== ENCOUNTER 2022-10-07 10:02 | Outpatient (AMB) | payer MEDICARE, OTHER, SELFPAY ==
--- NOTE | 2022-10-07 10:04 | MHC.OFFVIS ---
Intake Vital Signs 10/07/22 10:32 Height 5 ft 6 in Weight 181 lb BMI 29.2 BP 140/68 H Blood Pressure Location Rt brachial Position Sitting Respiration 16 Pulse 65 Pulse Source Pulse Oximeter Pulse Oximetry (%) 95 Oxygen Delivery Method Room Air Intake Visit Reasons: Lumbar Degenerative Disc Disease Intake Note: patient comes in for initial visit was referred by PCP. Allergies Seafood Allergy (Mild, Uncoded 09/23/22 15:07) DIFFICULTY BREATHING HPI HPI Comments History of Present Illness Details Luisa is a very pleasant 77 years old gentleman who is speaking significant amount of Japanese. He came to my office today with complains on lower back pain with possible radiation of the pain into the left lower extremity to the level of the foot she reports that she cannot sleep normally because of his pain cannot do activities of daily living she can take care of himself but she cannot function normally. He is retired individual. She reports that movements aggravates his pain. The in terms of tissue damage he reports his pain is stabbing lancinating, tugging, pulling, ranging sensation. She used to take Naprosyn until recently to help his pain however currently he stop Naprosyn because his primary care physician told him that it affects his kidney. He had x-ray in [facility] the results of which dictated as below. He never had an MRI of the lumbar spine. He never had physical therapy. He never had chiropractic manipulations. He reported that he never had any injections. He reports that he is afraid of needles. His past medical history significant for diabetes headaches history of cerebrovascular disease and history of stroke history of peripheral vascular disease and he is not under care of vascular surgeon. He is only seeing senior mortgage underwriter who observes the toes and the lower foot. His past surgical history significant for very remote surgery on the year secondary to infection. That was mastoidectomy most likely. He denies smoking cigarettes drinking alcohol or using recreational drugs. 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 Mother Diabetes Social History Housing: Apartment Alcohol intake: current Alcohol intake frequency: holidays/special occasions only Alcohol type: beer Patient Tobacco Use Status: Never used Tobacco e-Cigarette/Vaping Use: Never Used Second Hand Smoke Exposure: No service: No Current occupational status: disabled Cognitive needs: No Hearing needs: No Vision needs: Yes Review of Systems Const All systems reviewed & are unremarkable except as noted in HPI and below Reports no additional complaints ENT Reports Normal hearing present Card Reports no additional complaints Resp Reports no additional complaints GI Reports no additional complaints Reports no additional complaints Musc Reports as per HPI Neuro Reports as per HPI, Reports Normal hearing present, Denies Abnormal speech present, Denies confusion and Denies Sensory deficit (Neuro) Psych Reports no additional complaints and Denies confusion Endo Reports as per HPI Physical Exam Vital Signs: Last Vital Signs Pulse 65 10/07/22 10:32 Resp 16 10/07/22 10:32 BP 140/68 H 10/07/22 10:32 Pulse Ox 95 10/07/22 10:32 Oxygen Delivery Method Room Air 10/07/22 10:32 BMI result Body Mass Index 29.2 Const General: no acute distress; No confusion Nutritional Appearance: obese morbidly obese Orientation/consciousness: patient oriented x3 and No confusion Eyes General: appearance normal, both eyes and all related structures Pupils: Equal, round and reactive pupils present EOM: EOMs intact bilaterally Neck Neck: Yes full ROM Chest Chest palpation & inspection: normal inspection of the chest Resp Effort & Inspection: normal respiratory effort, able to speak in complete sentences, normal respiratory pattern, no audible wheezes and no cough Cardio Jugular venous distension: no JVD GI Inspection: Yes normal to inspection Back/Spine/Pelvis Other: No tenderness on palpation in paraspinal and spinal region of the lumbar spine no tenderness on palpation projection of bilateral sacroiliac joints. SLR is equivocal on the left and negative on the right. Foot dorsiflexion negative bilaterally for pain increase. Benny test is negative bilaterally. Gaenslen test is negative bilaterally. Flexing forward and flexing backwards aggravates his pain equally. Loading test is positive bilaterally. Valsalva maneuver does not aggravate his pain. Neuro General: patient oriented x3, gait normal and No confusion Cranial nerves: Yes CN's II-XII intact bilaterally, Yes Equal, round and reactive pupils present, Yes Normal hearing present and Yes Ability to bilaterally elevate shoulders present Speech: No Abnormal speech present Gait exam (Neuro): Normal gait present Motor exam (neuro): 5/5 motor strength present throughout Sensory Exam: No Sensory deficit (Neuro) Extrem Other: Unable to detect pulses on bilateral posterior tibial and dorsalis pedis on the feet. Mild reddish/bluish discoloration of the bilateral feet. Most likely peripheral vascular disease macro and microangiopathy diabetic. He wears protective devices on his 1st toes. Psych Speech and movement: Normal speech and movement present Affect: normal affect Attitude: cooperative Thought process: Normal thought process present Thought content: Normal thought content present Insight: Good insight present (Psych) Judgement: Good judgement present (Psych) Results Reviewed Results Reviewed: X-ray lumbar spine 09/15/2020.: Findings: Moderate to severe degenerative disc disease is seen at L4-5 and L5-S1, more pronounced at L5-S1 with disc space narrowing sclerosis and adjacent endplate and prominent marginal osteophyte formation. There is normal spinal alignment. No acute fracture is seen. The soft tissues are unremarkable. Assessment & Plan Assessment & Plan (1) Spondylosis of lumbar region without myelopathy or radiculopathy: Code(s): M47.816 - Spondylosis without myelopathy or radiculopathy, lumbar region (2) Disc degeneration, lumbar: Code(s): M51.36 - Other intervertebral disc degeneration, lumbar region (3) Chronic pain syndrome: Code(s): G89.4 - Chronic pain syndrome (4) Diabetic angiopathy: Code(s): E11.51 - Type 2 diabetes mellitus with diabetic peripheral angiopathy without gangrene (5) Peripheral vascular disease due to secondary diabetes: Code(s): E13.51 - Other specified diabetes mellitus with diabetic peripheral angiopathy without gangrene Plan This patient is very reluctant to accept interventional pain management. I offered him injections he adamantly refused. I explained to him no jorgensen of the peripheral vascular disease and need to be under vascular surgeon observation. However patient adamantly refused citing that he is already under observation of senior mortgage underwriter. I told him that this is not the same and he needs to consider vascular surgeon observation at least to make sure that his condition is not progressing further. He refused anyway. He accepted me to start him on baclofen 10 mg t.i.d.. He may continue escalation of baclofen with primary care physician. Doses of 20 t.i.d. and 30 t.i.d. could be employed to help his pain provided they do not cause any side effects. I will send him for physical therapy as we discussed during his visit. On his own he may find a chiropractor who will help him with gentle manipulations. This could be also effective for pain control. To make diagnosis more certain I need to perform injections however patient refuses to go for the injections. Therefore no follow-up appointment is needed. He may continue with PCP. Orders: Orders PT Evaluation and Treatment Today G89.4 - Chronic pain syndrome, M47.816 - Spondylosis without myelopathy or radiculopathy, lumbar region, M51.36 - Other intervertebral disc degeneration, lumbar region Coding Level of Care Code New Pt Level 4 (86017) Diagnoses Spondylosis of lumbar region without myelopathy or radiculopathy M47.816 Disc degeneration, lumbar M51.36 Chronic pain syndrome G89.4 Diabetic angiopathy E11.51 Peripheral vascular disease due to secondary diabetes E13.51
[2022-10-07 10:32] VITALS: BP 140/68; PULSE 65; RESP 16; O2SAT 95; BMI 29.2
== END 2022-10-07 10:56 | disposition home or self-care (01) ==
PROVIDERS: PCP Internal Medicine; Visit Provider Anesthesiology
DX: M47.816 Spondylosis without myelopathy or radiculopathy, lumbar region (principal); G89.4 Chronic pain syndrome; E11.51 Type 2 diabetes mellitus with diabetic peripheral angiopathy without gangrene; M51.36 Other intervertebral disc degeneration, lumbar region; E13.51 Other specified diabetes mellitus with diabetic peripheral angiopathy without gangrene
CPT/HCPCS: 99204

== ENCOUNTER → 2022-10-07 10:02 | Outpatient (BNVA) | payer MEDICARE, OTHER, SELFPAY | PROVIDERS: PCP Internal Medicine; Visit Provider Anesthesiology | DX: M47.816 Spondylosis without myelopathy or radiculopathy, lumbar region (principal); M51.36 Other intervertebral disc degeneration, lumbar region; E11.51 Type 2 diabetes mellitus with diabetic peripheral angiopathy without gangrene; E13.51 Other specified diabetes mellitus with diabetic peripheral angiopathy without gangrene; G89.4 Chronic pain syndrome | CPT/HCPCS: 99202 ==

== ENCOUNTER 2023-01-20 14:11 | Outpatient (AMB) | payer MEDICARE, OTHER, SELFPAY ==
--- NOTE | 2023-01-20 14:11 | MHC.OFFVIS ---
Intake Vital Signs 01/20/23 14:12 Height 5 ft 6 in Weight 182 lb 15.739 oz BMI 29.5 BP 140/68 H Blood Pressure Location Lt brachial Position Sitting Pulse 73 Pulse Source Pulse Oximeter Intake Visit Reasons: f/u Type 2 DM Intake Note: Patient present today to follow up on Type 2 Diabetes Mellitus. Last Diabetic Eye exam: 11/17/22 [facility] Last Podiatry Visit: 12/22/22 [facility] Random Glucose: 123 mg/dl HgA1C: 6.6% Employee Benefits Administrator Required: Yes Employee Benefits Administrator Language: Neuroscience Director Na Name: [facility] Medical staff Information Interpreted: non-clinical & clinical Accompanied by: Self / Same As Patient Allergies Seafood Allergy (Mild, Uncoded 09/23/22 15:07) DIFFICULTY BREATHING Medication List - Last Reconciled 01/20/23 by Marty Schwartz MD ascorbic acid (vitamin C) (Vitamin C) 500 mg PO DAILY aspirin 81 mg PO DAILY 30 days baclofen 10 mg PO TID 30 days blood sugar diagnostic As directed blood sugar diagnostic (OneTouch Verio test strips) 3 times a day dulaglutide (Trulicity) 1.5 mg (0.5 mL) subcut QWEEK gabapentin 200 mg (2 x 100 mg) PO BEDTIME insulin aspart U-100 (Novolog FlexPen U-100 Insulin aspart) 1 - 25 units (0.01 - 0.25 mL) subcut TID 30 days insulin degludec (Tresiba FlexTouch U-100 insulin) 25 units (0.25 mL) subcut DAILY isosorbide mononitrate ER 60 mg PO DAILY lancets As directed lancets (OneTouch Delica Lancets) 3 times a day lisinopril 40 mg PO DAILY multivitamin 1 tab PO DAILY omega-3 fatty acids-fish oil 340-1,000 mg 1 cap PO DAILY pen needle, diabetic 5 times a day pravastatin 80 mg PO BEDTIME 90 days vitamin B complex 1 tab PO DAILY HPI HPI Comments History of Present Illness Details 77 yo male, today for follow-up visit, for diabetes management and mild primary hyperparathyroidism. He has past medical history of hypertension, hyperlipidemia, coronary artery disease status post stent placement x 2 . He has diabetes mellitus type 2 for more than 30 years. He has proliferative retinopathy, neuropathy but no other microvascular disease. He is currently on Tresiba 24 units, Fiasp carb ratio 1: 10 g and 1:18 prelunch , Trulicity 1.5 mg/DL. tolerating well. No hypoglycemia Meter download from 01/06/2023 to 01/21/2020 he is checking his point cares 3 times a dayshows average glucose of 139 Low is 73 with high is 274. 88% range with 12% hyperglycemia and 0% hypoglycemia. Last ophthalmology evaluation: 1 mo ago . He has retinopathy is stable. s/p multiple laser treatments, last one last year. Denies nocturia, polyuria, polydipsia, numbness, tingling. + blurred vision. Laboratory Tests 06/28/18 11/17/19 11/17/19 12:57 10:15 10:16 Sodium Potassium Creatinine Est GFR (Non-Af Am er) Fasting Glucose Hgb A1c Fingerstic k 6.9 Calcium Phosphorus Magnesium AST ALT Alkaline Phosphata se Albumin Triglycerides 67 D Cholesterol 142 LDL Cholesterol, C alc 86 HDL Cholesterol 43 25-OH Vitamin D To omayra Vit D 1,25-Dihyd T otal 1,25 Dihydroxy Vit D2 1,25 Dihydroxy Vit D3 PTH Intact Ur Random Microalb umin 28.0 Ur 24 Hour Volume Ur Creatinine 24 H our Microalb/Creat Rat io 17.5 Ur Calcium 24 Hr Calcium/Creat 24 H r 11/20/19 11/20/19 11/20/19 08:00 10:30 10:30 Sodium 138 Potassium 4.8 Creatinine 0.77 Est GFR (Non-Af Am er) > 60 Fasting Glucose 107 H Hgb A1c Fingerstic k Calcium 10.0 Phosphorus Magnesium 1.9 AST 20 ALT 16 Alkaline Phosphata se 80 Albumin 4.1 Triglycerides Cholesterol LDL Cholesterol, C alc HDL Cholesterol 25-OH Vitamin D To omayra 33.2 Vit D 1,25-Dihyd T otal 42 1,25 Dihydroxy Vit D2 <8 1,25 Dihydroxy Vit D3 42 PTH Intact 65 H Ur Random Microalb umin Ur 24 Hour Volume 2650 Ur Creatinine 24 H our 1.35 Microalb/Creat Rat io Ur Calcium 24 Hr 138 Calcium/Creat 24 H r 102 11/24/19 12:35 Sodium Potassium Creatinine Est GFR (Non-Af Am er) Fasting Glucose Hgb A1c Fingerstic k Calcium Phosphorus 2.7 Magnesium AST ALT Alkaline Phosphata se Albumin Triglycerides Cholesterol LDL Cholesterol, C alc HDL Cholesterol 25-OH Vitamin D To omayra Vit D 1,25-Dihyd T otal 1,25 Dihydroxy Vit D2 1,25 Dihydroxy Vit D3 PTH Intact Ur Random Microalb umin Ur 24 Hour Volume Ur Creatinine 24 H our Microalb/Creat Rat io Ur Calcium 24 Hr Calcium/Creat 24 H r . [facility] Medical History Diabetes mellitus Diabetes type 2, uncontrolled Diabetic polyneuropathy associated with type 2 diabetes mellitus Dyslipidemia Hyperparathyroidism Hypertension FDC (current) use of insulin Long-term use of aspirin therapy Lumbar degenerative disc disease Myocardial infarct, old Proliferative diabetic retinopathy Thyroid nodule Surgical History Hx of colonoscopy Hx of heart artery stent Family History Father No problems noted. Mother Diabetes Social History Housing: Apartment Alcohol intake: current Alcohol intake frequency: holidays/special occasions only Alcohol type: beer Patient Tobacco Use Status: Never used Tobacco e-Cigarette/Vaping Use: Never Used Second Hand Smoke Exposure: No service: No Current occupational status: disabled Cognitive needs: No Hearing needs: No Vision needs: Yes Physical Exam Vital Signs: Last Vital Signs Pulse 73 01/20/23 14:12 BP 140/68 H 01/20/23 14:12 BMI result Body Mass Index 29.5 Absence of Cushingoid features. Absence of acromegalic features. Neck exam reveals nl size thyroid about 15 gms. No thyroid nodules palpable. No carotid bruits present. Lungs CTA. Heart S1 S2, Reg R/R. No M/R/ G. Skin exam reveals absence of vitiligo or acanthosis nigricans. Abdominal exam reveals Soft NT/ND with NA BS. No organomegaly present. There is a fat deposit present in the right upper back most likely suggestive of lipoma Neck Other: . Extrem Other: Visual exam of foot performed. No ulcerations or open lesions. No onchomycosis, no callouses.Pulses 2 + distally Sensation intact to monofilament exam. Vibratory sensation sensed is decreased with 128 Hz tuning fork. There are hyperpigmented plaques present on both lower extremities around the ankles Results AMB Hemoglobin A1c AMB Hemoglobin A1c 6.6 % Last Edit by Lizett Doshi on 01/20/23 14:32 Results Reviewed Results Reviewed: 01/20/23 14:21 Glucose, Whole Blood Routine Laboratory Last Values Glucose (Clinic) 123 mg/dL (60-115) H 01/20/23 14:21 Hgb A1c (Clinic) 6.6 % (4.0-6.0) H 01/20/23 14:26 Assessment & Plan Assessment & Plan (1) Diabetes type 2, uncontrolled: Code(s): E11.65 - Type 2 diabetes mellitus with hyperglycemia Plan: This 76-year-old male with a history of type 2 diabetes being treated with Trulicity and basal-bolus insulin with excellent glycemic control There are known microvascular and macrovascular complications namely neuropathy, retinopathy and CAD At this point, patient returned to the care of his primary care provider returned back to endocrinology should his HbA1c deteriorate (2) Hyperparathyroidism: Code(s): E21.3 - Hyperparathyroidism, unspecified Plan: Last calcium and PTH was normal. he had a normal DEXA bone density and normal 24 hour urine for calcium. No need for any further endocrine workup or follow-up (3) Thyroid nodule: Code(s): E04.1 - Nontoxic single thyroid nodule Plan: Nodules are subcentimeter in size. Repeat thyroid ultrasound could be performed about 2-3 years time Orders: Orders AMB Hemoglobin A1c Today E11.65 - Type 2 diabetes mellitus with hyperglycemia Medications: Refilled blood sugar diagnostic (OneTouch Verio test strips) 3 times a day 300 ea 3RF E11.65 - Type 2 diabetes mellitus with hyperglycemia, E11.9 - Type 2 diabetes mellitus without complications Coding Level of Care Code Est Pt Level 4 (00597) Diagnoses Diabetes type 2, uncontrolled E11.65 Hyperparathyroidism E21.3 Thyroid nodule E04.1
[2023-01-20 14:12] VITALS: BP 140/68; PULSE 73; BMI 29.5
[2023-01-20 14:26] LABS: Glucose, Whole Blood 123 mg/dL (60-115)
== END 2023-01-20 14:43 | disposition home or self-care (01) ==
PROVIDERS: PCP Internal Medicine; Visit Provider Internal Medicine Endocrinology, Diabetes & Metabolism
DX: E11.65 Type 2 diabetes mellitus with hyperglycemia (principal); E21.3 Hyperparathyroidism, unspecified; E04.1 Nontoxic single thyroid nodule
CPT/HCPCS: 99214

== ENCOUNTER → 2023-01-20 14:11 | Outpatient (BNVA) | payer MEDICARE, OTHER, SELFPAY | PROVIDERS: Visit Provider Internal Medicine Endocrinology, Diabetes & Metabolism | DX: E11.65 Type 2 diabetes mellitus with hyperglycemia (principal); E21.3 Hyperparathyroidism, unspecified; E04.1 Nontoxic single thyroid nodule | CPT/HCPCS: 82947; 83036; 99212 ==

== ENCOUNTER 2023-02-01 13:55 | Outpatient (AMB) | payer MEDICARE, OTHER, SELFPAY ==
--- NOTE | 2023-02-01 13:55 | MHC.PC.OV ---
Vital Signs 02/01/23 14:01 02/01/23 14:34 Height 5 ft 6 in Weight 181 lb BMI 29.2 BP 154/76 H 160/80 H Blood Pressure Location Lt brachial Lt brachial Position Sitting Sitting Pulse 72 Pulse Source Pulse Oximeter Pulse Oximetry (%) 97 Oxygen Delivery Method Room Air Intake Visit Reasons: dm Intake Note: Pt is here for DM F/U. Pt requesting a neurologist referral for MS. Securities Clerk Required: No Accompanied by: Daughter-Meche Allergies No Known Allergies Allergy (Verified 02/01/23 14:11) Medication List - Last Reconciled 02/01/23 by Zaria Page MD ascorbic acid (vitamin C) (Vitamin C) 500 mg PO DAILY aspirin 81 mg PO DAILY 30 days blood sugar diagnostic As directed blood sugar diagnostic (OneTouch Verio test strips) 3 times a day dulaglutide (Trulicity) 1.5 mg (0.5 mL) subcut QWEEK gabapentin 200 mg (2 x 100 mg) PO BEDTIME insulin aspart U-100 (Novolog FlexPen U-100 Insulin aspart) 1 - 25 units (0.01 - 0.25 mL) subcut TID 30 days insulin degludec (Tresiba FlexTouch U-100 insulin) 25 units (0.25 mL) subcut DAILY isosorbide mononitrate ER 60 mg PO DAILY lancets As directed lancets (OneTouch Delica Lancets) 3 times a day lisinopril 40 mg PO DAILY multivitamin 1 tab PO DAILY omega-3 fatty acids-fish oil 340-1,000 mg 1 cap PO DAILY pen needle, diabetic 5 times a day pravastatin 80 mg PO BEDTIME 90 days vitamin B complex 1 tab PO DAILY Tobacco use date assessed: 05/14/22 Fall risk assessment: No Falls in past year Last assessed Fall Risk: 02/01/23 Dental Screening Dental Screen Date: 02/01/23 Did you have a dental visit in the last 12 months?: Yes Did you have a dental problem in the last 6 months where you did not have access to dental care?: No Was dental information given to patient?: Patient has dentist HPI HPI Comments History of Present Illness Details This is a 77-year-old male with diabetes mellitus type 2 on long-term current use of insulin, hypertension, and dyslipidemia that complains of loss of balance and auditory hallucinations that started few months ago. He had this problem in childhood that resolve on its own. He is accompanied by daughter. A1c within goal. Blood pressure elevated and will be recheck in 3 weeks by nurse navigator. Lipid panel will be order and his LDL goal should be less than 70. He was diagnosed with multiple sclerosis about 2-3 years ago due to an MRI of the brain done at ER. We do not have the records. He denies any numbness or any neurological deficit. Has some depression with anxiety and for his psychosis will be referred to counseling. [facility] Medical History (Updated 02/01/23 @ 14:30 by Zaria Page MD) Myocardial infarct, old Thyroid nodule Diabetes mellitus Lumbar degenerative disc disease Diabetic polyneuropathy associated with type 2 diabetes mellitus Proliferative diabetic retinopathy Hypertension Dyslipidemia Hyperparathyroidism shelter (current) use of insulin Diabetes type 2, uncontrolled Long-term use of aspirin therapy Surgical History Hx of colonoscopy Hx of heart artery stent Family History Father No problems noted. Mother Diabetes Social History Housing: Apartment Alcohol intake: current Alcohol intake frequency: holidays/special occasions only Alcohol type: beer Patient Tobacco Use Status: Never used Tobacco e-Cigarette/Vaping Use: Never Used Second Hand Smoke Exposure: No service: No Current occupational status: disabled Cognitive needs: No Hearing needs: No Vision needs: Yes Questionnaire Thrive Questionnaire Date Thrive assessed: 05/14/22 RAVI-7 AMB Questionnaire RAVI-7 Date RAVI - 7 assessed: 05/14/22 Source: Developed by Drs. Marty Bellamy, Sahra Walker, Bryan Jamison and colleagues, with an educational nahomi from [employer]. Review of Systems Const All systems reviewed & are unremarkable except as noted in HPI and below Eyes Reports no additional complaints, Denies change in vision and Denies other visual disturbances Card Denies chest pain at rest, Denies chest pain with activity, Denies edema, Denies irregular heart rhythm, Denies claudication, Denies dyspnea, Denies dyspnea on exertion, Denies orthopnea, Denies paroxysmal nocturnal dyspnea and Denies slow heart rate Resp Denies cough, Denies dyspnea and Denies dyspnea on exertion GI Denies abdominal pain, Denies change in bowel habits, Denies excessive flatus, Denies nausea and Denies vomiting Denies urinary hesitancy, Denies urinary incontinence and Denies urinary urgency Musc Denies abnormal gait, Denies atrophy, Denies deformity and Denies limited range of motion Skin/Breast Denies bleeding lesions, Denies changing lesions and Denies rash Neuro Denies abnormal gait, Denies behavioral changes, Denies confusion and Denies lack of coordination Psych Reports anxiety, Denies behavioral changes, Denies confusion, Reports depression and Reports auditory hallucinations Physical exam (Primary Care) Vital Signs: Last Vital Signs Pulse 72 02/01/23 14:01 BP 154/76 H 02/01/23 14:01 Pulse Ox 97 02/01/23 14:01 Oxygen Delivery Method Room Air 02/01/23 14:01 BMI result Body Mass Index 29.2 Tobacco/Smoking Status: Tobacco use Status Tobacco use date assessed 05/14/22 02/01/23 13:56 Patient Tobacco Use Status Never used Tobacco 02/01/23 13:56 e-Cigarette/Vaping Use Never Used 02/01/23 13:56 Thrive Assessment: Date of Thrive Assessment Date Thrive assessed 05/14/22 02/01/23 13:56 Const General: No confusion Orientation/consciousness: patient oriented x3 and No confusion Eyes General: appearance normal, both eyes and all related structures Eyelids: Yes eyelids normal Conjunctivae: conjunctivae normal Neck Neck: Yes normal visual inspection and Yes supple Resp Effort & Inspection: normal respiratory effort Auscultation: clear to auscultation bilaterally Cardio Jugular venous distension: no JVD Rate: regular rate Rhythm: regular rhythm Heart sounds: S1 normal heart sound present and S2 normal heart sound present Neuro General: patient oriented x3, no focal motor deficits and No confusion Extrem General: Yes full ROM Psych Appearance: grossly normal Assessment and Plan Assessment & Plan (1) Diabetes mellitus: Code(s): E11.9 - Type 2 diabetes mellitus without complications Plan: Continue Trulicity and insulin. A1c goal is equal or less than 7%. (2) Hypertension: Code(s): I10 - Essential (primary) hypertension Qualifiers: Hypertension type: essential hypertension Qualified Code(s): I10 - Essential (primary) hypertension Plan: Continue lisinopril. Blood pressure goal is equal or less than 130/80. Recheck blood pressure in 3 weeks by nurse navigator. (3) manager intermediate (current) use of insulin: Code(s): Z79.4 - shelter (current) use of insulin Plan: Continue insulin. A1c goal is equal or less than 7% (4) Multiple sclerosis: Code(s): G35 - Multiple sclerosis Plan: MRI of the brain ordered. Referred to neurology. (5) Psychosis: Code(s): F29 - Unspecified psychosis not due to a substance or known physiological condition Plan: Referred to counseling. (6) Dyslipidemia: Code(s): E78.5 - Hyperlipidemia, unspecified Plan: Continue statins. LDL goal is less than 70. Orders: Orders MR head/brain wo con Today G35 - Multiple sclerosis Lipid Panel 4 Months E78.5 - Hyperlipidemia, unspecified Microalbumin, Random (w Creat) 4 Months E11.9 - Type 2 diabetes mellitus without complications Vitamin D 25-OH Total 4 Months E55.9 - Vitamin D deficiency, unspecified Comprehensive [place]. Panel Fast 4 Months E11.51 - Type 2 diabetes mellitus with diabetic peripheral angiopathy without gangrene Referrals Counseling Referral F29 - Unspecified psychosis not due to a substance or known physiological condition, F41.8 - Other specified anxiety disorders Neurology Referral G35 - Multiple sclerosis Coding Level of Care Code Est Pt Level 4 (03858) Diagnoses Diabetes mellitus E11.9 Essential hypertension I10 Hypertension type: essential hypertension manager intermediate (current) use of insulin Z79.4 Multiple sclerosis G35 Psychosis F29 Dyslipidemia E78.5 Time Spent (min) 25
[2023-02-01 14:01] VITALS: BP 154/76; PULSE 72; O2SAT 97; BMI 29.2
[2023-02-01 14:34] VITALS: BP 160/80
== END 2023-02-01 14:35 | disposition home or self-care (01) ==
PROVIDERS: PCP Internal Medicine; Visit Provider Internal Medicine
DX: E11.9 Type 2 diabetes mellitus without complications (principal); Z79.4 Long term (current) use of insulin; G35 Multiple sclerosis; E21.3 Hyperparathyroidism, unspecified
CPT/HCPCS: 99214

== ENCOUNTER 2023-03-01 19:06 | Outpatient (REF) | payer MEDICARE, OTHER, SELFPAY ==
--- NOTE | ~2023-03-01 | MR_ITS ---
EXAMINATION: MR BRAIN WITHOUT CONTRAST CLINICAL INFORMATION: Loss of balance, multiple sclerosis COMPARISON: None available. TECHNIQUE: MRI of the brain was obtained using routine sequences without contrast. FINDINGS: There is no reduced diffusion to suggest acute infarct. Susceptibility weighted sequence is within normal limits. No mass effect, extra-axial collection, midline shift, or other herniation. Generalized cerebral volume loss with associated surgical and sulcal prominence. Periventricular, subcortical, and pontine T2/FLAIR hyperintense foci are noted. Intracranial flow voids are preserved. Bilateral intraocular lens replacements. Trace scattered paranasal sinus mucosal thickening. Opacification of the mastoid tips. MR/MR head/brain wo con IMPRESSION: Generalized cerebral volume loss with associated ventricular and sulcal prominence. Periventricular, subcortical, and pontine T2/FLAIR hyperintense foci are nonspecific and may be related to underlying chronic microvascular ischemic change versus reported history of demyelination. No restricted diffusion to indicate active demyelination.
== END 2023-03-01 19:07 | disposition home or self-care (01) ==
LOC: HO.MRI 19:06
PROVIDERS: PCP Internal Medicine; Visit Provider Internal Medicine
DX: G35 Multiple sclerosis (principal)
CPT/HCPCS: 70551

== ENCOUNTER 2023-06-07 14:16 | Outpatient (AMB) | payer MEDICARE, OTHER, SELFPAY ==
[2023-06-07 14:24] VITALS: BP 138/70; BMI 27.1
--- NOTE | 2023-06-07 14:24 | MHC.PC.OV ---
Vital Signs 06/07/23 14:24 Height 5 ft 6 in Weight 168 lb BMI 27.1 BP 138/70 Blood Pressure Location Lt brachial Position Sitting Intake Visit Reasons: dm Intake Note: Patient here for a follow up DM Paver Operator Required: No Accompanied by: Daughter Allergies No Known Allergies Allergy (Verified 06/07/23 14:28) Medication List - Last Reconciled 06/07/23 by Zaria Page MD ascorbic acid (vitamin C) (Vitamin C) 500 mg PO DAILY aspirin 81 mg PO DAILY 30 days baclofen 10 mg PO TID 30 days blood sugar diagnostic As directed blood sugar diagnostic (OneTouch Verio test strips) 3 times a day dulaglutide (Trulicity) 1.5 mg (0.5 mL) subcut QWEEK gabapentin 200 mg (2 x 100 mg) PO BEDTIME insulin aspart U-100 (Novolog FlexPen U-100 Insulin aspart) 1 - 25 units (0.01 - 0.25 mL) subcut TID 30 days insulin degludec (Tresiba FlexTouch U-100 insulin) 25 units (0.25 mL) subcut DAILY isosorbide mononitrate ER 60 mg PO DAILY lancets As directed lancets (OneTouch Delica Lancets) 3 times a day lisinopril 40 mg PO DAILY multivitamin 1 tab PO DAILY omega-3 fatty acids-fish oil 340-1,000 mg 1 cap PO DAILY pen needle, diabetic 5 times a day pravastatin 80 mg PO BEDTIME 90 days vitamin B complex 1 tab PO DAILY Tobacco use date assessed: 06/07/23 Fall risk assessment: No Falls in past year Last assessed Fall Risk: 06/07/23 Dental Screening Dental Screen Date: 06/07/23 Did you have a dental visit in the last 12 months?: Yes Did you have a dental problem in the last 6 months where you did not have access to dental care?: No Was dental information given to patient?: Patient has dentist HPI HPI Comments History of Present Illness Details This is a 77-year-old male with diabetes mellitus type 2 on long-term current use of insulin, hypertension, dyslipidemia and tremors that comes today accompanied by daughter for follow-up on his conditions. Had MRI of the brain showing chronic vascular changes but no multiple sclerosis. Was seen by Neurology that rule out multiple sclerosis and advised him that tremors might be related to his age and seen benign. A1c within goal. Blood pressure stable. Lipid panel will be order and his LDL goal should be less than 70. No chest pain or shortness of breath. Walks with a cane for gait stability. 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 Mother Diabetes Social History Housing: Apartment Alcohol intake: current Alcohol intake frequency: holidays/special occasions only Alcohol type: beer Patient Tobacco Use Status: Never used Tobacco e-Cigarette/Vaping Use: Never Used Second Hand Smoke Exposure: No service: No Current occupational status: disabled Cognitive needs: No Hearing needs: No Vision needs: Yes Questionnaire PHQ-9 Over the last 2 weeks, how often have you been bothered by any of the following problems? 1. Little interest or pleasure in doing things: not at all 2. Feeling down, depressed, or hopeless: more than half the days 3. Trouble falling or staying asleep, or sleeping too much: not at all 4. Feeling tired or having little energy: several days 5. Poor appetite or overeating: several days 6. Feeling bad about yourself - or that you are a failure or have let yourself or your family down: not at all 7. Trouble concentrating on things, such as reading the newspaper or watching television: several days 8. Moving or speaking so slowly that other people could have noticed. Or the opposite - being so fidgety or restless that you have been moving around a lot more than usual: not at all 9. Thoughts that you would be better off or of hurting yourself in some way: not at all Total score: 5 Depression Screening Interpretation: Positive Depression Screening Follow-up: Existing condition Depression Screening Done: Yes 46083 - PHQ-9 Billing: Yes Source: Developed by Drs. Marty Bellamy, Sahra Walker, Bryan Jamison and colleagues, with an educational nahomi from [employer]. Thrive Questionnaire Date Thrive assessed: 06/07/23 I am a: Patient What is your living situation today?: I have a steady place to live Within the past 12 months, did the food you bought not last and you didn't have the money to get more?: Never true Within the past 12 months, did you worry whether your food would run out before you got money to buy more?: Never true Do you have trouble paying for medicines?: No Do you have trouble getting transportation to medical appointments?: No Do you have trouble paying your heating and electricity bill?: No Do you have trouble taking care of your child, family member or friend?: No Do you have trouble with day-to-day activities such as bathing, preparing meals, shopping, managing finances, etc.?: Yes Are you currently unemployed and looking for a job?: No Are you interested in more education?: No Please select the resources that you would like help with: None Currently or been in a relationship where the following occur: no concerns reported THRIVE Score: 0 AUDIT C Alcohol Use Questionnaire (AUDIT-C) 1. How often do you have a drink containing alcohol?: Monthly or less 2. How many drinks containing alcohol do you have on a typical day when you are drinking?: 1 or 2 3. How often do you have six or more drinks on one occasion?: Never Total Score: 1 Score Reviewed/Action Taken: No RAVI-7 AMB Questionnaire RAVI-7 Date RAVI - 7 assessed: 06/07/23 Feeling nervous, anxious, or on edge: 3 = Nearly every day Not being able to stop or control worryin = Several days Worrying too much about different things: 2 = More than half the days Trouble relaxin = Several days Being so restless that it is hard to sit still: 0 = Not at all Becoming easily annoyed or irritable: 0 = Not at all Feeling afraid as if something awful might happen: 0 = Not at all Total RAVI-7 score (0-4 normal; 5-9 mild; 10-14 moderate; 15-21 severe): 7 Source: Developed by Drs. Marty Bellamy, Sahra Walker, Bryan Jamison and colleagues, with an educational nahomi from [employer]. RAVI-7 Assessment Billing RAVI-7 Assessment Tool: RAVI-7 Assessment 76850 Review of Systems Const All systems reviewed & are unremarkable except as noted in HPI and below Eyes Reports no additional complaints, Denies change in vision and Denies other visual disturbances Card Denies chest pain at rest, Denies chest pain with activity, Denies edema, Denies irregular heart rhythm, Denies claudication, Denies dyspnea, Denies dyspnea on exertion, Denies orthopnea, Denies paroxysmal nocturnal dyspnea and Denies slow heart rate Resp Denies cough, Denies dyspnea and Denies dyspnea on exertion GI Denies abdominal pain, Denies change in bowel habits, Denies excessive flatus, Denies nausea and Denies vomiting Denies urinary hesitancy, Denies urinary incontinence and Denies urinary urgency Physical exam (Primary Care) Vital Signs: Last Vital Signs BP 138/70 06/07/23 14:24 BMI result Body Mass Index 27.1 Tobacco/Smoking Status: Tobacco use Status Tobacco use date assessed 06/07/23 06/07/23 14:32 Patient Tobacco Use Status Never used Tobacco 06/07/23 14:32 e-Cigarette/Vaping Use Never Used 06/07/23 14:32 PHQ-9: PHQ-9 Score PHQ-9: Total score 5 06/07/23 14:52 Depression Screening Interpretation: Positive Depression Screening Follow-up: Existing condition Thrive Assessment: Date of Thrive Assessment Date Thrive assessed 06/07/23 06/07/23 14:32 Currently or been in a relationship where the following occur: no concerns reported Neck Neck: Yes normal visual inspection and Yes supple Resp Effort & Inspection: normal respiratory effort Auscultation: clear to auscultation bilaterally Cardio Jugular venous distension: no JVD Rate: regular rate Rhythm: regular rhythm Heart sounds: S1 normal heart sound present and S2 normal heart sound present Extrem General: Yes full ROM Results AMB Hemoglobin A1c AMB Hemoglobin A1c 6.9 % Last Edit by BOBBY Weller on 06/07/23 14:36 Results Reviewed Results Reviewed: Laboratory Last Values Hgb A1c (Clinic) 6.9 % (4.0-6.0) H 06/07/23 14:23 Assessment and Plan Assessment & Plan (1) Diabetes mellitus: Code(s): E11.9 - Type 2 diabetes mellitus without complications Plan: Discontinue Trulicity due to out of stock. Increase Tresiba. A1c goal is equal or less than 7%. (2) Hypertension: Code(s): I10 - Essential (primary) hypertension Qualifiers: Hypertension type: essential hypertension Qualified Code(s): I10 - Essential (primary) hypertension Plan: Continue lisinopril. Blood pressure goal is equal or less than 130/80. (3) Dyslipidemia: Code(s): E78.5 - Hyperlipidemia, unspecified Plan: Continue statins. LDL goal is less than 70. (4) Coarse tremors: Code(s): G25.2 - Other specified forms of tremor Plan: Continue family support as needed. Decrease caffeine intake. Orders: Orders Lipid Panel Today E78.5 - Hyperlipidemia, unspecified Microalbumin, Random (w Creat) Today E11.9 - Type 2 diabetes mellitus without complications AMB Hemoglobin A1c Today E11.9 - Type 2 diabetes mellitus without complications Comprehensive [place]. Panel Fast Today E11.9 - Type 2 diabetes mellitus without complications Medications: Changed From insulin degludec (Tresiba FlexTouch U-100 insulin) 25 units (0.25 mL) subcut DAILY 15 mL 3RF E11.65 - Type 2 diabetes mellitus with hyperglycemia To insulin degludec (Tresiba FlexTouch U-100 insulin) 30 units (0.3 mL) subcut DAILY 30 days 9 mL 3RF E11.65 - Type 2 diabetes mellitus with hyperglycemia Discontinued dulaglutide (Trulicity) Discontinued Reason: Patient Completed Course 1.5 mg (0.5 mL) subcut QWEEK 6 mL 4RF E11.65 - Type 2 diabetes mellitus with hyperglycemia Coding Level of Care Code Est Pt Level 4 (09283) Diagnoses Diabetes mellitus E11.9 Essential hypertension I10 Hypertension type: essential hypertension Dyslipidemia E78.5 Coarse tremors G25.2 Additional Codes RAVI-7 Assessment Billing - RAVI-7 Assessment Tool: RAVI-7 Assessment 26361 ([id number]) Time Spent (min) 23
== END 2023-06-07 15:08 | disposition home or self-care (01) ==
PROVIDERS: PCP Internal Medicine; Visit Provider Internal Medicine
DX: E11.69 Type 2 diabetes mellitus with other specified complication (principal); I10 Essential (primary) hypertension; E78.5 Hyperlipidemia, unspecified; G25.2 Other specified forms of tremor
CPT/HCPCS: 83036; 99214

== ENCOUNTER 2023-06-11 06:08 | Outpatient (REF) | payer MEDICARE, OTHER, SELFPAY ==
[2023-06-11 07:19] LABS: Alanine Aminotransferase 19 U/L (0-40); Albumin Level 3.8 g/dL (3.5-5.0); Alkaline Phosphatase 69 U/L (39-117); Anion Gap 12 (12-20); Aspartate Amino Transferase 23 U/L (5-37); Bilirubin Total 0.5 mg/dL (0.0-1.0); Blood Urea Nitrogen 19 mg/dL (9-16); Carbon Dioxide 32 mmol/L (22-29); Chloride 105 mmol/L (96-108); Cholesterol 135 mg/dL (<200); Estimated Glomerular Filt Rate > 60; Glucose Fasting 79 mg/dL (60-99); HDL Cholesterol 48 mg/dL (>40); LDL Cholesterol Calculated 79 mg/dL (<100); Potassium 4.1 mmol/L (3.3-5.1); Sodium 145 mmol/L (135-145); Total Protein 6.9 g/dL (6.5-8.0); Triglycerides 40 mg/dL (<150)
[2023-06-11 07:38] LABS: Vitamin D 25-OH Total 42.7 ng/mL (>30)
[2023-06-11 08:13] LABS: Creatinine Urine 56.52 mg/dL; Microalbum/Creatinine Ratio Ur 15.9 ug/mg cr (<30)
== END 2023-06-11 06:09 | disposition home or self-care (01) ==
LOC: HO.LAB 06:08
PROVIDERS: PCP Internal Medicine; Visit Provider Internal Medicine
DX: E11.9 Type 2 diabetes mellitus without complications (principal); E55.9 Vitamin D deficiency, unspecified; E78.5 Hyperlipidemia, unspecified
CPT/HCPCS: 36415; 80053; 80061; 82043; 82306; 82570

== ENCOUNTER 2023-10-11 14:15 | Outpatient (AMB) | payer MEDICARE, OTHER, SELFPAY ==
[2023-10-11 14:34] VITALS: BP 134/70; PULSE 66; O2SAT 97; BMI 30.3
--- NOTE | 2023-10-11 14:34 | MHC.PC.OV ---
Vital Signs 10/11/23 14:34 Height 5 ft 6 in Weight 188 lb BMI 30.3 BP 134/70 Blood Pressure Location Lt brachial Position Sitting Pulse 66 Pulse Source Pulse Oximeter Pulse Oximetry (%) 97 Oxygen Delivery Method Room Air Intake Visit Reasons: dm Risk Mgr Required: No Accompanied by: Self / Same As Patient Allergies No Known Allergies Allergy (Verified 10/11/23 14:43) Medication List - Last Reconciled 10/11/23 by Zaria Page MD ascorbic acid (vitamin C) (Vitamin C) 500 mg PO DAILY aspirin 81 mg PO DAILY 30 days baclofen 10 mg PO TID 30 days blood sugar diagnostic As directed blood sugar diagnostic (OneTouch Verio test strips) 3 times a day gabapentin 200 mg (2 x 100 mg) PO BEDTIME insulin aspart (niacinamide) 100 unit/mL (3 mL) (Fiasp FlexTouch U-100 Insulin) 1 - 25 sliding scale doses subcut TID 30 days insulin aspart U-100 (Novolog FlexPen U-100 Insulin aspart) 1 - 25 units (0.01 - 0.25 mL) subcut TID 30 days insulin degludec (Tresiba FlexTouch U-100 insulin) 30 units (0.3 mL) subcut DAILY 30 days isosorbide mononitrate ER 60 mg PO DAILY lancets As directed lancets (OneTouch Delica Lancets) 3 times a day lisinopril 40 mg PO DAILY multivitamin 1 tab PO DAILY omega-3 fatty acids-fish oil 340-1,000 mg 1 cap PO DAILY pen needle, diabetic 5 times a day pravastatin 80 mg PO BEDTIME 90 days vitamin B complex 1 tab PO DAILY Tobacco use date assessed: 06/07/23 Fall risk assessment: No Falls in past year Last assessed Fall Risk: 10/11/23 Dental Screening Dental Screen Date: 06/07/23 HPI HPI Comments History of Present Illness Details This is a 78-year-old male with diabetes mellitus type 2 on long-term current use of insulin, hypertension, dyslipidemia and coarse tremors that comes today for follow-up on his conditions. A1c elevated and I will add Mounjaro and increase insulin. Blood pressure stable. LDL close to goal. Tremors happens occasionally and this is follow by Neurology. He did had an MRI of the brain due to history of multiple sclerosis but no active demyelination was present in the MRI. Denies any chest pain or shortness on breath. 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 Mother Diabetes Social History Housing: Apartment Alcohol intake: current Alcohol intake frequency: holidays/special occasions only Alcohol type: beer Patient Tobacco Use Status: Never used Tobacco e-Cigarette/Vaping Use: Never Used Second Hand Smoke Exposure: No service: No Current occupational status: disabled Cognitive needs: No Hearing needs: No Vision needs: Yes Questionnaire Thrive Questionnaire Date Thrive assessed: 06/07/23 RAVI-7 AMB Questionnaire RAVI-7 Date RAVI - 7 assessed: 06/07/23 Source: Developed by Drs. Marty Bellamy, Sahra Walker, Bryan Jamison and colleagues, with an educational nahomi from [employer]. Review of Systems Const All systems reviewed & are unremarkable except as noted in HPI and below Card Denies chest pain at rest, Denies chest pain with activity, Denies edema, Denies irregular heart rhythm, Denies claudication, Denies dyspnea, Denies dyspnea on exertion, Denies orthopnea, Denies paroxysmal nocturnal dyspnea and Denies slow heart rate Resp Denies cough, Denies dyspnea and Denies dyspnea on exertion GI Denies abdominal pain, Denies change in bowel habits, Denies excessive flatus, Denies nausea and Denies vomiting Denies urinary hesitancy, Denies urinary incontinence and Denies urinary urgency Musc Denies atrophy, Denies deformity and Denies limited range of motion Skin/Breast Denies bleeding lesions, Denies changing lesions and Denies rash Physical exam (Primary Care) Vital Signs: Last Vital Signs Pulse 66 07/15/24 14:34 BP 134/70 10/11/23 14:34 Pulse Ox 97 10/11/23 14:34 Oxygen Delivery Method Room Air 10/11/23 14:34 BMI result Body Mass Index 30.3 BMI Assessment/Plan discussion: High BMI High, discussed plan: lifestyle, weight reduction, dietary and physical activity Tobacco/Smoking Status: Tobacco use Status Tobacco use date assessed 06/07/23 10/11/23 14:35 Patient Tobacco Use Status Never used Tobacco 10/11/23 14:35 e-Cigarette/Vaping Use Never Used 10/11/23 14:35 Thrive Assessment: Date of Thrive Assessment Date Thrive assessed 06/07/23 10/11/23 14:35 Resp Effort & Inspection: normal respiratory effort Auscultation: clear to auscultation bilaterally Cardio Jugular venous distension: no JVD Rate: regular rate Rhythm: regular rhythm Heart sounds: S1 normal heart sound present and S2 normal heart sound present Skin General skin exam: no rashes or lesions noted Neuro General: no focal motor deficits Extrem General: Yes full ROM Psych Appearance: grossly normal Results AMB Hemoglobin A1c AMB Hemoglobin A1c 7.6 % Last Edit by TIFFANY Betancur on 10/11/23 14:39 Results Reviewed Results Reviewed: Laboratory Last Values Hgb A1c (Clinic) 7.6 % (4.0-6.0) H 10/11/23 14:21 Assessment and Plan Assessment & Plan (1) Hypertension: Code(s): I10 - Essential (primary) hypertension Qualifiers: Hypertension type: essential hypertension Qualified Code(s): I10 - Essential (primary) hypertension Plan: Continue lisinopril. Blood pressure goal is equal or less than 130/80. (2) Dyslipidemia: Code(s): E78.5 - Hyperlipidemia, unspecified Plan: Continue statins. LDL goal is less than 70. 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 Increase long-acting insulin from 30 units to 33 units. Start Mounjaro. A1c goal is equal or less than 7%. (4) Coarse tremors: Code(s): G25.2 - Other specified forms of tremor Plan: Follow-up with Neurology. Orders: Orders AMB Hemoglobin A1c Today E11.9 - Type 2 diabetes mellitus without complications Lipid Panel 4 Months E78.5 - Hyperlipidemia, unspecified Comprehensive [place]. Panel Fast 4 Months E11.9 - Type 2 diabetes mellitus without complications Microalbumin, Random (w Creat) 4 Months E11.9 - Type 2 diabetes mellitus without complications Vitamin D 25-OH Total 4 Months E55.9 - Vitamin D deficiency, unspecified XR DEXA axial skeleton Today M85.80 - Other specified disorders of bone density and structure, unspecified site Medications: New tirzepatide (Mounjaro) 2.5 mg (0.5 mL) subcut QWEEK 4 weeks 2 mL 0RF Changed From insulin degludec (Tresiba FlexTouch U-100 insulin) 30 units (0.3 mL) subcut DAILY 30 days 9 mL 3RF E11.65 - Type 2 diabetes mellitus with hyperglycemia To insulin degludec (Tresiba FlexTouch U-100 insulin) 33 units (0.33 mL) subcut DAILY 30 days 9.9 mL 3RF E11.65 - Type 2 diabetes mellitus with hyperglycemia Refilled aspirin 81 mg PO DAILY 30 days 30 tabs 11RF Z79.82 - joint terminal attack controller (current) use of aspirin Coding Level of Care Code Est Pt Level 4 (93224) Complex EM visit Add On G2211 Diagnoses Essential hypertension I10 Hypertension type: essential hypertension Dyslipidemia E78.5 Type 2 diabetes mellitus with hyperglycemia, with long-term current use of insulin E11.65; Z79.4 Diabetes mellitus type: type 2 Coarse tremors G25.2 Time Spent (min) 23
== END 2023-10-11 15:03 | disposition home or self-care (01) ==
PROVIDERS: PCP Internal Medicine; Visit Provider Internal Medicine
DX: E11.65 Type 2 diabetes mellitus with hyperglycemia (principal); Z79.4 Long term (current) use of insulin; E11.9 Type 2 diabetes mellitus without complications; E78.5 Hyperlipidemia, unspecified; I10 Essential (primary) hypertension; G25.2 Other specified forms of tremor
CPT/HCPCS: 83036; 99214; G2211

== ENCOUNTER 2023-11-05 14:11 | Outpatient (REF) | payer MEDICARE, OTHER, SELFPAY ==
--- NOTE | ~2023-11-05 | MM_ITS ---
EXAMINATION: BONE DENSITOMETRY CLINICAL INDICATION: Other specified disorders of bone density and structure, unspecified site. COMPARISON: Baseline BD dated 09/12/2020. TECHNIQUE: Using a [employer] DXA System (software version: 13.1) manufactured by [employer], dual-energy x-ray absorptiometry was performed of the lumbar spine and left hip. The images are of good technical quality. Summary results are attached. FINDINGS: LEFT FEMUR, NECK: Current: BMD 1.013 g/cm2, Z-score 0.9, T-score -0.4, normal. Baseline: BMD 1.051 g/cm2. LEFT FEMUR, TOTAL: Current: BMD 0.950 g/cm2, Z-score -0.2, T-score -1.0, normal, 5.2% decrease from baseline (<5% change is not significant). Baseline: BMD 1.002 g/cm2. AP SPINE L1-L3 (excluding L4): The data of L1-L4 has been changed to exclude the L4 vertebral body, because degenerative sclerosis at this level may cause overestimation of lumbar spine density. Current: BMD 1.114 g/cm2, Z-score -0.4, T-score -0.8, normal, 0.4% increase from baseline (<5% change is not significant). Baseline: BMD 1.110 g/cm2. IDENTIFIED RISK FACTORS: Low calcium intake. HISTORY OF FRACTURE: None listed. MEDICATIONS: Calcium supplements or multivitamin, vitamin D. MM/XR DEXA axial skeleton IMPRESSION: 1. DIAGNOSIS: Normal bone density based on the lowest T-score value of -1.0 in the total femur applying World Health Organization criteria. 2. 10-YEAR FRACTURE RISK PREDICTION, FRAX: According to the guidelines, FRAX calculation should only be performed on patients in the osteopenia bone density category. Therefore, FRAX was not performed on this patient. 3. Treatment Recommendations: NOF guidelines recommend consideration for treatment in postmenopausal women and men age 50 and older presenting with the following: -A hip or vertebral (clinical or morphometric) fracture. -T-score less than or equal to -2.5 at the femoral neck or spine after appropriate evaluation to exclude secondary causes. -Low bone mass at the hip or spine and a 10-year fracture probability by FRAX of greater than or equal to 3% for hip fracture or greater than or equal to 20% for major osteoporotic fracture based on the [place] adapted WHO algorithm. 4. Other Recommendations: All treatment decisions require clinical judgment and consideration of individual patient factors, including patient preferences, comorbidities, previous drug use, risk factors not captured in the FRAX model (e.g. frailty, falls, vitamin D deficiency, increased bone turnover, interval significant decline in bone density) and possible under or overestimation of fracture risk by FRAX. FUTURE SCAN RECOMMENDATION: People with diagnosed cases of osteoporosis or at high risk for fracture should have regular bone mineral density tests. For patients eligible for Medicare, routine testing is allowed once every 2 years. The testing frequency can be increased to one year for patients who have rapidly progressing disease, those who are receiving or discontinuing medical therapy to restore bone mass, or have additional risk factors.
== END 2023-11-05 14:12 | disposition home or self-care (01) ==
LOC: HO.MAMMO 14:11
PROVIDERS: PCP Internal Medicine; Visit Provider Internal Medicine
DX: Z13.820 Encounter for screening for osteoporosis (principal); M85.89 Other specified disorders of bone density and structure, multiple sites
CPT/HCPCS: 77080

== ENCOUNTER 2024-01-25 09:30 | Outpatient (AMB) | payer MEDICARE, OTHER, SELFPAY ==
[2024-01-25 09:43] VITALS: BP 130/80; BMI 29.0
--- NOTE | 2024-01-25 09:43 | A.OFFPC_ITS ---
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 Accompanied by: Self / Same As Patient Allergies No Known Allergies Allergy (Verified 01/25/24 09:55) Medication List - Last Reconciled 01/25/24 by Zaria Page MD ascorbic acid (vitamin C) (Vitamin C) 500 mg PO DAILY aspirin 81 mg PO DAILY 30 days baclofen 10 mg PO TID 30 days blood sugar diagnostic As directed blood sugar diagnostic (OneTouch Verio test strips) 3 times a day gabapentin 200 mg (2 x 100 mg) PO BEDTIME insulin aspart (niacinamide) 100 unit/mL (3 mL) (Fiasp FlexTouch U-100 Insulin) 1 - 25 sliding scale doses subcut TID 30 days insulin aspart U-100 (Novolog FlexPen U-100 Insulin aspart) 1 - 25 units (0.01 - 0.25 mL) subcut TID 30 days insulin degludec (Tresiba FlexTouch U-100 insulin) 33 units (0.33 mL) subcut DAILY 30 days insulin lispro (Humalog KwikPen (U-100) Insulin) 1 to 25 units dosed per sliding scale subcutaneously 3 times a day; isosorbide mononitrate ER 60 mg PO DAILY lancets As directed lancets (OneTouch Delica Lancets) 3 times a day lisinopril 40 mg PO DAILY multivitamin 1 tab PO DAILY omega-3 fatty acids-fish oil 340-1,000 mg 1 cap PO DAILY pen needle, diabetic 5 times a day pravastatin 80 mg PO BEDTIME 90 days tirzepatide (Mounjaro) 2.5 mg (0.5 mL) subcut QWEEK 4 weeks tirzepatide 5 mg (0.5 mL) subcut QWEEK 4 weeks vitamin B complex 1 tab PO DAILY Tobacco use date assessed: 06/07/23 Fall risk assessment: No Falls in past year Last assessed Fall Risk: 01/25/24 Dental Screening Dental Screen Date: 01/25/24 Did you have a dental visit in the last 12 months?: No Did you have a dental problem in the last 6 months where you did not have access to dental care?: No Was dental information given to patient?: Patient has dentist HPI HPI Comments History of Present Illness Details This is a 78-year-old male with diabetes mellitus type 2 on long-term current use of insulin, hypertension, dyslipidemia and hyperparathyroidism that comes today for follow-up on his conditions. A1c within goal. Blood pressure stable. Last LDL within goal. Had elevated parathyroid that will be repeated. Complains of coarse tremors and anxiety that are follow by Neurology. Had a questionable diagnosis of multiple sclerosis in which last MRI of the brain does not show any abnormal finding associated with multiple sclerosis. No chest pain or shortness on breath. FORMERLY [facility], [facility] Medical History Hyperparathyroidism Diabetic angiopathy Peripheral vascular disease due to secondary diabetes Psychosis Multiple sclerosis Myocardial infarct, old Thyroid nodule Diabetes mellitus Lumbar degenerative disc disease Diabetic polyneuropathy associated with type 2 diabetes mellitus Proliferative diabetic retinopathy Hypertension Dyslipidemia [facility] (current) use of insulin Diabetes type 2, uncontrolled Long-term use of aspirin therapy Surgical History Hx of colonoscopy Hx of heart artery stent Family History Father No problems noted. Mother Diabetes Social History Housing: Apartment Alcohol intake: current Alcohol intake frequency: holidays/special occasions only Alcohol type: beer Patient Tobacco Use Status: Never used Tobacco e-Cigarette/Vaping Use: Never Used Second Hand Smoke Exposure: No service: No Current occupational status: disabled Cognitive needs: No Hearing needs: No Vision needs: Yes Questionnaire Thrive Questionnaire Date Thrive assessed: 06/07/23 RAVI-7 AMB Questionnaire RAVI-7 Date RAVI - 7 assessed: 06/07/23 Source: Developed by Drs. Marty Bellamy, Sahra Walker, Bryan Jamison and colleagues, with an educational nahomi from [employer]. Review of Systems Const All systems reviewed & are unremarkable except as noted in HPI and below Card Denies chest pain at rest, Denies chest pain with activity, Denies edema, Denies irregular heart rhythm, Denies claudication, Denies dyspnea, Denies dyspnea on exertion, Denies orthopnea, Denies paroxysmal nocturnal dyspnea and Denies slow heart rate Resp Denies cough, Denies dyspnea and Denies dyspnea on exertion GI Reports abdominal pain Neuro Reports tremor(s) Psych Reports anxiety Physical exam (Primary Care) Vital Signs: Last Vital Signs BP 130/80 01/25/24 09:43 BMI result Body Mass Index 29.0 Tobacco/Smoking Status: Tobacco use Status Tobacco use date assessed 06/07/23 01/25/24 09:47 Patient Tobacco Use Status Never used Tobacco 01/25/24 09:47 e-Cigarette/Vaping Use Never Used 01/25/24 09:47 Thrive Assessment: Date of Thrive Assessment Date Thrive assessed 06/07/23 01/25/24 09:47 Resp Effort & Inspection: normal respiratory effort Auscultation: clear to auscultation bilaterally Cardio Jugular venous distension: no JVD Rate: regular rate Rhythm: regular rhythm Heart sounds: S1 normal heart sound present and S2 normal heart sound present Neuro Motor exam (neuro): Tremors during motor activity present Office Procedures Flu Questionnaire Does the patient have a severe egg allergy?: No Does the patient have severe life threatening allergies?: No Does the patient have a fever or illness today?: No Has the patient ever had Guillain-Fair Play Syndrome?: No Has the patient ever had any past reaction to a flu shot?: No Results AMB Hemoglobin A1c AMB Hemoglobin A1c 6.4 % Last Edit by BOBBY Weller on 01/25/24 09:5 0 Immunizations Fluarix Triv 3177-6176 (PF) 45 mcg (15 mcg x 3)/0.5 mL IM syringe Performing Provider: Zaria Page MD Performing Location: [facility] Administered by: BOBBY Weller on 01/25/24 10:04 Dose Route Admin Location Dispensed Lot Number Expiration Date [facility] Photo Finisher 0.5 mL IM Right Deltoid 0.5 mL [id number] 09/25/24 [id number] Roomish VIS Given Date VIS Provided VIS Publication Date 01/25/24 Single Vaccine 20 Eligibility Eligibility Date Funding Source Not [facility] Eligible 01/25/24 Private Results Reviewed Results Reviewed: Laboratory Last Values Hgb A1c (Clinic) 6.4 % (4.0-6.0) H 01/25/24 09:40 Coding Level of Care Code Est Pt Level 4 (02634) Complex EM visit Add On G2211 Diagnoses Type 2 diabetes mellitus with hyperglycemia, with long-term current use of insulin E11.65; Z79.4 Diabetes mellitus type: type 2 Hyperparathyroidism E21.3 Essential hypertension I10 Hypertension type: essential hypertension Dyslipidemia E78.5 Time Spent (min) 21 Assessment & Plan Assessment & Plan (1) Diabetes mellitus with hyperglycemia, with long-term current use of insulin: Code(s): E11.65 - Type 2 diabetes mellitus with hyperglycemia; 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 Continue Mounjaro. A1c goal is equal or less than 7%. (2) Hyperparathyroidism: Code(s): E21.3 - Hyperparathyroidism, unspecified Category: Medical Plan: Repeat labs. (3) Hypertension: Code(s): I10 - Essential (primary) hypertension Category: Medical Qualifiers: Hypertension type: essential hypertension Qualified Code(s): I10 - Essential (primary) hypertension Plan: Continue lisinopril. Blood pressure goal is equal or less than 130/80. (4) Dyslipidemia: Code(s): E78.5 - Hyperlipidemia, unspecified Category: Medical Plan: Continue statins. Repeat lipid panel. LDL goal is less than 70. Orders: Orders Influenza [id number] Immunization Today Z23 - Encounter for immunization AMB Hemoglobin A1c Today E11.65 - Type 2 diabetes mellitus with hyperglycemia, Z79.4 - [facility] (current) use of insulin Lipid Panel Today E78.5 - Hyperlipidemia, unspecified Comprehensive [place]. Panel Fast Today E11.65 - Type 2 diabetes mellitus with hyperglycemia, Z79.4 - [facility] (current) use of insulin Parathyroid Hormone Intact Today E21.3 - Hyperparathyroidism, unspecified Phosphorus Today E21.3 - Hyperparathyroidism, unspecified Microalbumin, Random (w Creat) Today R80.9 - Proteinuria, unspecified Vitamin D 25-OH Total Today E55.9 - Vitamin D deficiency, unspecified Calcium, Ionized Today E21.3 - Hyperparathyroidism, unspecified Medications: New omeprazole 20 mg PO DAILY 90 caps 1RF 90 days
== END 2024-01-25 10:11 | disposition home or self-care (01) ==
LOC: HO.HMCH 09:30
PROVIDERS: PCP Internal Medicine; Visit Provider Internal Medicine
DX: E11.65 Type 2 diabetes mellitus with hyperglycemia (principal); Z79.4 Long term (current) use of insulin; E21.3 Hyperparathyroidism, unspecified; I10 Essential (primary) hypertension; E78.5 Hyperlipidemia, unspecified; Z23 Encounter for immunization

== ENCOUNTER → 2024-01-25 09:30 | Outpatient (BNVA) | payer MEDICARE, OTHER, SELFPAY | PROVIDERS: PCP Internal Medicine; Visit Provider Internal Medicine | DX: Z23 Encounter for immunization (principal); E11.65 Type 2 diabetes mellitus with hyperglycemia; Z79.4 Long term (current) use of insulin; E21.3 Hyperparathyroidism, unspecified; E78.5 Hyperlipidemia, unspecified; I10 Essential (primary) hypertension | CPT/HCPCS: 83036; 90471; 90656; 99212 ==

== ENCOUNTER 2024-01-28 22:16 | Emergency (ER) | payer MEDICARE, OTHER, SELFPAY ==
[2024-01-28 22:20] VITALS: BP 188/87; PULSE 66; RESP 18; TEMP 36.6; O2SAT 98; BMI 28.7
[2024-01-28 22:52] LABS: MANUAL DIFF FLAG NO
[2024-01-28 22:57] LABS: Glucose, Whole Blood 150 mg/dL (60-115)
[2024-01-28 22:57] LABS: Basophils Absolute Auto 0.1 X10*3/uL (0.0-0.2); Basophils Percent Auto 0.5 % (0-2); Eosinophils Absolute Auto 0.2 X10*3/uL (0.0-0.4); Hematocrit 43.4 % (42.0-52.0); Hemoglobin 14.9 g/dl (14.0-18.0); Imm Gran Abs Auto 0.06 X10*3/uL (0.00-0.03); Imm Gran Pct Auto 0.5 % (0.0-0.4); Lymphocytes Absolute Auto 2.3 X10*3/uL (1.2-4.9); Lymphocytes Percent Auto 19.3 % (20-40); Mean Corpuscular HGB Conc 34.3 g/dl (31.0-36.0); Mean Corpuscular Hemoglobin 28.4 pg (27.0-33.0); Mean Corpuscular Volume 82.7 fL (80.0-98.0); Mean Platelet Volume 11.1 fL (9.4-12.4); Monocytes Percent Auto 8.4 % (2-11); Neutrophils Absolute Auto 8.1 x10*3/uL (2.0-8.3); Neutrophils Percent Auto 69.3 % (45-73); Platelet Count 266 X10*3/uL (160-400); Red Blood Count 5.25 X10*6/uL (4.60-5.80); Red Cell Distribution Width 14.3 % (11.0-16.0); White Blood Count 11.7 X10*3/uL (4.8-10.8)
[2024-01-28 23:02] LABS: Lactic Acid 0.9 mmol/L (0.5-2.0)
[2024-01-28 23:05] LABS: Prothrombin Time 11.6 SEC (10.9-12.4)
[2024-01-28 23:07] LABS: Alanine Aminotransferase 17 U/L (0-40); Albumin Level 4.2 g/dL (3.5-5.0); Alkaline Phosphatase 77 U/L (39-117); Anion Gap 14 (12-20); Aspartate Amino Transferase 27 U/L (5-37); Bilirubin Total 0.6 mg/dL (0.0-1.0); Blood Urea Nitrogen 18 mg/dL (9-16); Calcium 10.6 mg/dL (8.4-10.2); Carbon Dioxide 26 mmol/L (22-29); Chloride 102 mmol/L (96-108); Creatinine Clr Calc Pharmacy 71.7; Estimated Glomerular Filt Rate > 60; Glucose Random 169 mg/dL (60-115); Partial Thromboplastin Time 31.9 SEC (26.0-36.8); Potassium 4.7 mmol/L (3.3-5.1); Sodium 137 mmol/L (135-145); Total Protein 7.8 g/dL (6.5-8.0)
[2024-01-29 00:18] VITALS: BP 157/77; PULSE 61; RESP 18; TEMP 36.7; O2SAT 98
--- NOTE | 2024-01-29 00:20 | MHC.EDTECH ---
This tech assumed care of pt at this time,rounded and introduced self to pt,vitals taken, patient ambulated to the bathroom with a steady gait,urine sample collected and sent to lab,call tomas in reach
[2024-01-29 00:35] LABS: Appearance Urine Clear; Color Urine Yellow; Glucose Urine UA Negative (Negative); Leukocyte Esterase Urine Negative (Negative); Nitrite Urine Negative (Negative); PH 5.5 (5.0-9.0); Specific Gravity - Urine 1.015 (1.005-1.025); Urine Blood Negative (Negative); Urine Ketones Negative (Negative); Urine Protein Negative (Neg-Trace)
--- NOTE | 2024-01-29 00:46 | ED.EXTPRO ---
HPI - Extremity Problem General Chief complaint: Extremity Problem Stated complaint: left great toe swollen /diabetic Time Seen by Provider: 01/29/24 00:46 Source: patient Mode of arrival: ambulatory Limitations: no limitations History of Present Illness ED Provider: ricardo FERNÁNDEZ Narrative: Patient diabetic with neuropathy noticed small blister at the tip of the left great toe 3 days ago with surrounding redness of the toe no fever no history of trauma patient does wear tight shoes likely the cause Related Data Home Medications ?Medication ?Instructions ?Recorded ?Confirmed blood sugar diagnostic #10 ea 01/12/20 01/25/24 lancets 30 gauge #100 ea 01/12/20 01/25/24 multivitamin 1 tab PO DAILY 01/12/20 01/25/24 omega-3 fatty acids-fish oil 340 1 cap PO DAILY 01/12/20 01/25/24 mg-1,000 mg capsule ascorbic acid (vitamin C) 500 mg 500 mg PO DAILY 07/06/22 01/25/24 tablet (Vitamin C) vitamin B complex 1 tab PO DAILY 07/06/22 01/25/24 Previous Rx's ?Medication ?Instructions ?Recorded pen needle, diabetic 32 gauge x #450 ea 09/10/20 lancets 33 gauge (OneTouch Delica #300 ea 11/25/21 Lancets) insulin aspart U-100 100 unit/mL 1 - 25 unit (0.01 - 0.25 mL) 10/06/22 (3 mL) subcutaneous pen (Novolog subcut TID 30 days #45 mL FlexPen U-100 Insulin aspart) blood sugar diagnostic (OneTouch #300 ea 01/20/23 Verio test strips) gabapentin 100 mg capsule 200 mg (2 x 100 mg) PO BEDTIME 02/09/23 #180 caps baclofen 10 mg tablet 10 mg PO TID 30 days #90 tabs 04/12/23 aspirin 81 mg tablet,delayed 81 mg PO DAILY 30 days #30 tabs 10/11/23 release tirzepatide 2.5 mg/0.5 mL 2.5 mg (0.5 mL) subcut QWEEK 4 11/02/23 subcutaneous pen injector weeks #2 mL (Mounjaro) lisinopril 40 mg tablet 40 mg PO DAILY #90 tabs 12/01/23 insulin aspart 1 - 25 sliding scale dose subcut 12/10/23 (niacinamide)(U-100) 100 unit/mL(3 TID 30 days #45 mL mL) subcutaneous pen (Fiasp FlexTouch U-100 Insulin) insulin lispro 100 unit/mL See Rx Instructions subcut TID #15 12/10/23 subcutaneous pen (Humalog KwikPen mL (U-100) Insulin) isosorbide mononitrate 60 mg 60 mg PO DAILY #90 tabs 12/31/23 tablet,extended release 24 hr pravastatin 80 mg tablet 80 mg PO BEDTIME 90 days #90 tabs 12/31/23 insulin degludec 100 unit/mL (3 33 unit (0.33 mL) subcut DAILY 30 01/20/24 mL) subcutaneous pen (Tresiba days #9.9 mL FlexTouch U-100 insulin) tirzepatide 5 mg/0.5 mL 5 mg (0.5 mL) subcut QWEEK 4 weeks 01/24/24 subcutaneous pen injector #2 mL omeprazole 20 mg capsule,delayed 20 mg PO DAILY 90 days #90 caps 01/25/24 release doxycycline hyclate 100 mg tablet 100 mg PO BID #20 tabs 01/29/24 Allergies Allergy/AdvReac Type Severity Reaction Status Date / Time No Known Allergies Allergy Verified 01/28/24 22:23 Review of Systems Review of Systems: Yes all other systems are reviewed and are negative [facility] Past Medical History Medical History Hyperparathyroidism Diabetic angiopathy Peripheral vascular disease due to secondary diabetes Psychosis Multiple sclerosis Myocardial infarct, old Thyroid nodule Diabetes mellitus Lumbar degenerative disc disease Diabetic polyneuropathy associated with type 2 diabetes mellitus Proliferative diabetic retinopathy Hypertension 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 Mother Diabetes Social History Social History Housing: Apartment Alcohol intake: never Patient Tobacco Use Status: Never used Tobacco Smoked in Last 30 Days: No e-Cigarette/Vaping Use: Never Used Second Hand Smoke Exposure: No Use of substances other than those prescribed or required for medical reasons: No Advance Directives: No Advance Directives Information Provided: No service: No Current occupational status: disabled Cognitive needs: No Hearing needs: No Vision needs: Yes Physical Exam Vital Signs: Vital Signs: Last Vital Signs Temp 98.5 F 01/29/24 02:17 Pulse 79 01/29/24 02:17 Resp 16 01/29/24 02:17 BP 149/86 H 01/29/24 02:17 Pulse Ox 96 01/29/24 02:17 O2 Del Method Room Air 01/29/24 02:17 BMI result Body Mass Index 28.7 Extrem: Ankle/foot/toe images: 1. Serosanguineous fluid containing blister at the tip of the left great toe Medications Administered Discontinued Medications Generic Name Dose Route Start Last Admin Trade Name Freq PRN Reason Stop Dose Admin Doxycycline Monohydrate 100 mg 01/29/24 01:05 01/29/24 01:28 Doxycycline Monohydrate 100 Mg Capsule PO 01/29/24 01:06 100 mg ONCE ONE Administration Medical Decision Making Medical Decision Making [facility] Narrative: Blister at the base of left great toe was de roofed and the serosanguineous fluid was removed silver nitrate was used to stop the bleeding bacitracin ointment applied will prescribe doxycycline no signs of deeper infection neurovascular intact Lab Data [facility] Lab Attestation statement: I reviewed the patient's lab results. 01/28/24 22:46 01/28/24 22:46 Labs: Lab Results 01/28/24 01/28/24 01/29/24 Range/Units 22:39 22:46 00:29 WBC 11.7 H (4.8-10.8) X10*3/uL RBC 5.25 (4.60-5.80) X10*6/uL Hgb 14.9 (14.0-18.0) g/dl Hct 43.4 (42.0-52.0) % MCV 82.7 (80.0-98.0) fL MCH 28.4 (27.0-33.0) pg MCHC 34.3 (31.0-36.0) g/dl RDW 14.3 (11.0-16.0) % Plt Count 266 (160-400) X10*3/uL MPV 11.1 (9.4-12.4) fL Immature Gran % (Auto) 0.5 H (0.0-0.4) % Neut % (Auto) 69.3 (45-73) % Lymph % (Auto) 19.3 L (20-40) % [place] % (Auto) 8.4 (2-11) % Eos % (Auto) 2.0 (0-4) % Baso % (Auto) 0.5 (0-2) % Lymph # (Auto) 2.3 (1.2-4.9) X10*3/uL [place] # (Auto) 1.0 (0.1-1.2) X10*3/uL Eos # (Auto) 0.2 (0.0-0.4) X10*3/uL Baso # (Auto) 0.1 (0.0-0.2) X10*3/uL Abs Immat Gran (auto) 0.06 H (0.00-0.03) X10*3/uL Absolute Neuts (auto) 8.1 (2.0-8.3) x10*3/uL Absolute Nucleated RBC 0.000 (0.0-0.012) X10*3/uL Nucleated RBC % (auto) 0.0 (0.0-0.2) /100WBC PT 11.6 (10.9-12.4) SEC INR 1.0 (0.9-1.1) APTT 31.9 (26.0-36.8) SEC Sodium 137 (135-145) mmol/L Potassium 4.7 (3.3-5.1) mmol/L Chloride 102 (96-108) mmol/L Carbon Dioxide 26 (22-29) mmol/L Anion Gap 14 (12-20) BUN 18 H (9-16) mg/dL Creatinine 0.86 (0.5-1.4) mg/dL Estim Creat Clear Calc 71.7 Estimated GFR > 60 POC Glucose 150 H (60-115) mg/dL Random Glucose 169 H (60-115) mg/dL Lactic Acid 0.9 (0.5-2.0) mmol/L Calcium 10.6 H (8.4-10.2) mg/dL Total Bilirubin 0.6 (0.0-1.0) mg/dL AST 27 (5-37) U/L ALT 17 (0-40) U/L Alkaline Phosphatase 77 (39-117) U/L Total Protein 7.8 (6.5-8.0) g/dL Albumin 4.2 (3.5-5.0) g/dL Urine Color Yellow Urine Appearance Clear Urine pH 5.5 (5.0-9.0) Ur Specific [place] 1.015 (1.005-1.025) Urine Protein Negative (Neg-Trace) mg/dL Urine Glucose (UA) Negative (Negative) mg/dL Urine Ketones Negative (Negative) mg/dL Urine Blood Negative (Negative) Urine Nitrite Negative (Negative) Ur Leukocyte Esterase Negative (Negative) Procedures Abscess I/D Site: foot (Left great toe) Side (if applicable): left Technique: incised with blade Sent for culture/gram staining?: No Discharge Plan Discharge Clinical Impression: Cellulitis of great toe of left foot Patient Disposition: Home, Self-Care Instructions: Cellulitis (ED) Additional Instructions: Local care as advised Apply bacitracin ointment and local care Antibiotic as prescribed Report to ER if worsening of the redness/swelling/fever Prescriptions: New doxycycline hyclate 100 mg tablet 100 mg PO BID Qty: 20 0RF No Action (DME) lancets [OneTouch Delica Lancets] 33 gauge misc See Rx Instructions .ROUTE .MEDSUPPLY Qty: 300 3RF Rx Instructions: 3 times a day insulin aspart U-100 [Novolog FlexPen U-100 Insulin] 100 unit/mL (3 mL) insulin pen 1 - 25 unit subcut TID 30 Days Qty: 45 3RF gabapentin 100 mg capsule 200 mg PO BEDTIME Qty: 180 3RF baclofen 10 mg tablet 10 mg PO TID 30 Days Qty: 90 8RF Mounjaro 2.5 mg/0.5 mL pen injector 2.5 mg subcut QWEEK 28 Days Qty: 2 0RF lisinopril 40 mg tablet 40 mg PO DAILY Qty: 90 1RF insulin lispro [Humalog KwikPen Insulin] 100 unit/mL insulin pen See Rx Instructions subcut TID Qty: 15 0RF Rx Instructions: 1 to 25 units dosed per sliding scale subcutaneously 3 times a day; Fiasp FlexTouch U-100 Insulin 100 unit/mL (3 mL) insulin pen 1 - 25 sliding scale dose subcut TID 30 Days Qty: 45 11RF isosorbide mononitrate 60 mg tablet extended release 24 hr 60 mg PO DAILY Qty: 90 1RF pravastatin 80 mg tablet 80 mg PO BEDTIME 90 Days Qty: 90 1RF insulin degludec [Tresiba FlexTouch U-100] 100 unit/mL (3 mL) insulin pen 33 unit subcut DAILY 30 Days Qty: 9.9 3RF tirzepatide 5 mg/0.5 mL pen injector 5 mg subcut QWEEK 28 Days Qty: 2 0RF ascorbic acid (vitamin C) [Vitamin C] 500 mg Tablet 500 mg PO DAILY vitamin B complex Tablet 1 tab PO DAILY aspirin 81 mg tablet,delayed release (DR/EC) 81 mg PO DAILY 30 Days Qty: 30 11RF (DME) OneTouch Verio test strips Strip See Rx Instructions Not Applicable .MEDSUPPLY Qty: 10 Rx Instructions: As directed (DME) lancets 30 gauge misc See Rx Instructions .ROUTE .MEDSUPPLY Qty: 100 Rx Instructions: As directed Fish Oil 340-1,000 mg capsule 1 cap PO DAILY multivitamin Tablet 1 tab PO DAILY (DME) pen needle, diabetic 32 gauge x 5/32 needle See Rx Instructions subcut .MEDSUPPLY Qty: 450 1RF Rx Instructions: 5 times a day (DME) OneTouch Verio test strips Strip See Rx Instructions .ROUTE .MEDSUPPLY Qty: 300 3RF Rx Instructions: 3 times a day omeprazole 20 mg capsule,delayed release(DR/EC) 20 mg PO DAILY 90 Days Qty: 90 1RF Interventions: ED Discharge Assessment Last Done: 01/29/24 02:17 Discharge Date/Time: 01/29/24 02:18 Print Language: [place]
[2024-01-29] MEDS: Doxycycline Monohydrate 100 MG CAPSULE PO (01:28)
[2024-01-29 02:16] VITALS: BP 149/86; PULSE 79; RESP 16; TEMP 36.9; O2SAT 96
[2024-01-29 02:17] VITALS: BP 149/86; PULSE 79; RESP 16; TEMP 36.9; O2SAT 96
== END 2024-01-29 02:18 | disposition home or self-care (01) ==
PROVIDERS: Emergency Provider Internal Medicine; PCP Internal Medicine
DX: L03.116 Cellulitis of left lower limb (principal); M79.675 Pain in left toe(s); D81.9 Combined immunodeficiency, unspecified; E11.9 Type 2 diabetes mellitus without complications; Z79.4 Long term (current) use of insulin; Z79.899 Other long term (current) drug therapy; Z51.81 Encounter for therapeutic drug level monitoring
CPT/HCPCS: 10060; 36415; 80053; 81003; 82947; 83605; 85025; 85610; 85730; 87040; 99283; 99284

== ENCOUNTER 2024-02-23 11:00 | Outpatient (RCR) | payer MEDICARE, OTHER, SELFPAY | END 2024-03-21 12:41 | disposition home or self-care (01) | LOC: HO.WCC 11:00 | PROVIDERS: PCP Internal Medicine; Visit Provider Surgery | DX: E11.621 Type 2 diabetes mellitus with foot ulcer (principal); L97.522 Non-pressure chronic ulcer of other part of left foot with fat layer exposed; E11.42 Type 2 diabetes mellitus with diabetic polyneuropathy; Z79.4 Long term (current) use of insulin | CPT/HCPCS: 11042; 99212 ==

== ENCOUNTER 2024-05-31 14:46 | Outpatient (AMB) | payer MEDICARE, OTHER, SELFPAY ==
--- NOTE | 2024-05-31 14:50 | A.OFFPC_ITS ---
Vital Signs 05/31/24 14:55 Height 5 ft 6 in Weight 175 lb BMI 28.2 BP 132/72 Blood Pressure Location Lt brachial Position Sitting Intake Visit Reasons: DM Lumber Marker Required: Yes Lumber Marker Language: Space Systems Operations Craftsman Name: Zaria Page MD Information Interpreted: non-clinical & clinical Accompanied by: Self / Same As Patient Allergies No Known Allergies Allergy (Verified 05/31/24 15:05) Medication List - Last Reconciled 05/31/24 by Zaria Page MD ascorbic acid (vitamin C) (Vitamin C) 500 mg PO DAILY aspirin 81 mg PO DAILY 30 days baclofen 10 mg PO TID 30 days blood sugar diagnostic As directed blood sugar diagnostic (OneTouch Verio test strips) 3 times a day gabapentin 200 mg (2 x 100 mg) PO BEDTIME insulin aspart (niacinamide) 100 unit/mL (3 mL) (Fiasp FlexTouch U-100 Insulin) 1 - 25 sliding scale doses subcut TID 30 days insulin aspart U-100 (Novolog FlexPen U-100 Insulin aspart) 1 - 25 units (0.01 - 0.25 mL) subcut TID 30 days insulin degludec (Tresiba FlexTouch U-100 insulin) 33 units (0.33 mL) subcut DAILY 30 days insulin lispro (Humalog KwikPen (U-100) Insulin) 1 to 25 units dosed per sliding scale subcutaneously 3 times a day; isosorbide mononitrate ER 60 mg PO DAILY lancets As directed lancets (OneTouch Delica Lancets) 3 times a day lisinopril 40 mg PO DAILY multivitamin 1 tab PO DAILY omega-3 fatty acids-fish oil 340-1,000 mg 1 cap PO DAILY omeprazole 20 mg PO DAILY 90 days pen needle, diabetic 5 times a day pravastatin 80 mg PO BEDTIME 90 days tirzepatide (Mounjaro) 2.5 mg (0.5 mL) subcut QWEEK 4 weeks tirzepatide 5 mg (0.5 mL) subcut QWEEK 4 weeks vitamin B complex 1 tab PO DAILY Tobacco use date assessed: 05/31/24 Fall risk assessment: No Falls in past year Last assessed Fall Risk: 05/31/24 Dental Screening Dental Screen Date: 05/31/24 Did you have a dental visit in the last 12 months?: No Did you have a dental problem in the last 6 months where you did not have access to dental care?: No Was dental information given to patient?: Patient has dentist HPI HPI Comments History of Present Illness Details The patient is a 78-year-old male presenting for a follow-up on diabetes management, with concurrent management of depression and anxiety. His diabetes is reportedly well-controlled with a recent hemoglobin A1c of 6.4%. He will benefit from having diabetic shoes. The patient reports experiencing increased levels of stress and anxiety over the last two weeks related to caregiving duties, which has been influencing both his mental health and blood glucose stability. Despite maintaining his dietary management and medication regimen, he reports unpredictable blood sugar levels, which are high even when he consumes minimal food. In terms of management, he is on Tresiba and Novolog for diabetes, Lisinopril for hypertension, and Pravastatin for hypercholesterolemia. The patient also mentions past concerns for a multiple sclerosis diagnosis, which was ruled out by a negative MRI. However, he continues to experience a tremor which are follow by Neurology. Has hyperparathyroidism with elevated calcium that will be repeated. 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 Mother Diabetes Social History Housing: Apartment Alcohol intake: never Patient Tobacco Use Status: Never used Tobacco e-Cigarette/Vaping Use: Never Used Second Hand Smoke Exposure: No service: No Current occupational status: disabled Cognitive needs: No Hearing needs: No Vision needs: Yes Questionnaire PHQ-9 Over the last 2 weeks, how often have you been bothered by any of the following problems? 1. Little interest or pleasure in doing things: not at all 2. Feeling down, depressed, or hopeless: several days 3. Trouble falling or staying asleep, or sleeping too much: several days 4. Feeling tired or having little energy: not at all 5. Poor appetite or overeating: several days 6. Feeling bad about yourself - or that you are a failure or have let yourself or your family down: not at all 7. Trouble concentrating on things, such as reading the newspaper or watching television: several days 8. Moving or speaking so slowly that other people could have noticed. Or the opposite - being so fidgety or restless that you have been moving around a lot more than usual: several days 9. Thoughts that you would be better off or of hurting yourself in some way: not at all Total score: 5 Depression Screening Interpretation: Positive Depression Screening Follow-up: Existing condition, New Medication prescribed and Follow-up Visit Requested Depression Screening Done: Yes 29898 - PHQ-9 Billing: Yes Source: Developed by Drs. Marty Bellamy, Sahra Walker, Bryan Jamison and colleagues, with an educational nahomi from [employer]. Thrive Questionnaire Date Thrive assessed: 05/31/24 I am a: Patient What is your living situation today?: I have a steady place to live Within the past 12 months, did the food you bought not last and you didn't have the money to get more?: Never true Within the past 12 months, did you worry whether your food would run out before you got money to buy more?: Never true Do you have trouble paying for medicines?: No Do you have trouble getting transportation to medical appointments?: No Do you have trouble paying your heating and electricity bill?: No Do you have trouble taking care of your child, family member or friend?: No Do you have trouble with day-to-day activities such as bathing, preparing meals, shopping, managing finances, etc.?: No Are you currently unemployed and looking for a job?: No Are you interested in more education?: No Please select the resources that you would like help with: None Currently or been in a relationship where the following occur: No concerns reported THRIVE Score: 0 AUDIT C Alcohol Use Questionnaire (AUDIT-C) 1. How often do you have a drink containing alcohol?: Monthly or less 2. How many drinks containing alcohol do you have on a typical day when you are drinking?: 1 or 2 3. How often do you have six or more drinks on one occasion?: Never Total Score: 1 Score Reviewed/Action Taken: No RAVI-7 AMB Questionnaire RAVI-7 Date RAVI - 7 assessed: 05/31/24 Feeling nervous, anxious, or on edge: 1 = Several days Not being able to stop or control worryin = Not at all Worrying too much about different things: 1 = Several days Trouble relaxin = Several days Being so restless that it is hard to sit still: 0 = Not at all Becoming easily annoyed or irritable: 1 = Several days Feeling afraid as if something awful might happen: 0 = Not at all Total RAVI-7 score (0-4 normal; 5-9 mild; 10-14 moderate; 15-21 severe): 4 Source: Developed by Drs. Marty Bellamy, Sahra Walker, Bryan Jamison and colleagues, with an educational nahomi from [employer]. RAVI-7 Assessment Billing RAVI-7 Assessment Tool: RAVI-7 Assessment 52687 Review of Systems Const All systems reviewed & are unremarkable except as noted in HPI and below Card Denies chest pain at rest, Denies chest pain with activity, Denies edema, Denies irregular heart rhythm, Denies claudication, Denies dyspnea, Denies dyspnea on exertion, Denies orthopnea, Denies paroxysmal nocturnal dyspnea and Denies slow heart rate Resp Denies cough, Denies dyspnea and Denies dyspnea on exertion GI Denies abdominal pain, Denies change in bowel habits, Denies excessive flatus, Denies nausea and Denies vomiting Denies urinary hesitancy, Denies urinary incontinence and Denies urinary urgency Neuro Denies lack of coordination Physical exam (Primary Care) Vital Signs: Last Vital Signs BP 132/72 05/31/24 14:55 BMI result Body Mass Index 28.2 Tobacco/Smoking Status: Tobacco use Status Tobacco use date assessed 05/31/24 05/31/24 15:00 Patient Tobacco Use Status Never used Tobacco 05/31/24 14:52 e-Cigarette/Vaping Use Never Used 05/31/24 14:52 PHQ-9: PHQ-9 Score PHQ-9: Total score 5 05/31/24 15:00 Depression Screening Interpretation: Positive Depression Screening Follow-up: Existing condition, New Medication prescribed and Follow-up Visit Requested Thrive Assessment: Date of Thrive Assessment Date Thrive assessed 05/31/24 05/31/24 14:52 Currently or been in a relationship where the following occur: No concerns reported Resp Effort & Inspection: normal respiratory effort Auscultation: clear to auscultation bilaterally Cardio Jugular venous distension: no JVD Rate: regular rate Rhythm: regular rhythm Heart sounds: S1 normal heart sound present and S2 normal heart sound present Extrem General: Yes full ROM Results AMB Hemoglobin A1c AMB Hemoglobin A1c 6.4 % Last Edit by BOBBY Weller on 05/31/24 15:0 3 Results Reviewed Results Reviewed: Laboratory Last Values Hgb A1c (Clinic) 6.4 % (4.0-6.0) H 05/31/24 14:49 Coding Level of Care Code Est Pt Level 4 (44509) Complex EM visit Add On G2211 Diagnoses Coarse tremors G25.2 Type 2 diabetes mellitus with other specified complication, with long-term current use of insulin E11.69; Z79.4 Diabetes mellitus type: type 2 Diabetes mellitus nursing home insulin use: with nursing home use Diabetes mellitus complication status: with other specified complication jail (current) use of insulin Z79.4 Essential hypertension I10 Hypertension type: essential hypertension Dyslipidemia E78.5 Anxiety F41.9 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 Hyperparathyroidism E21.3 Additional Codes PHQ-9 - 34435 - PHQ-9 Billing: Yes ([id number]) RAVI-7 Assessment Billing - RAVI-7 Assessment Tool: RAVI-7 Assessment 76417 ([id number]) Time Spent (min) 25 Assessment & Plan Assessment & Plan (1) Coarse tremors: Code(s): G25.2 - Other specified forms of tremor Category: Medical (2) Diabetes mellitus: Code(s): E11.9 - Type 2 diabetes mellitus without complications Category: Medical Qualifiers: Diabetes mellitus type: type 2 Diabetes mellitus nursing home insulin use: with nursing home use Diabetes mellitus complication status: with other specified complication Qualified Code(s): E11.69 - Type 2 diabetes mellitus with other specified complication; Z79.4 - intermodal dispatcher (current) use of insulin (3) jail (current) use of insulin: Code(s): Z79.4 - intermodal dispatcher (current) use of insulin Category: Medical (4) Hypertension: Code(s): I10 - Essential (primary) hypertension Category: Medical Qualifiers: Hypertension type: essential hypertension Qualified Code(s): I10 - Essential (primary) hypertension (5) Dyslipidemia: Code(s): E78.5 - Hyperlipidemia, unspecified Category: Medical (6) Anxiety: Code(s): F41.9 - Anxiety disorder, unspecified Category: Medical (7) Mild recurrent major depression: Code(s): F33.0 - Major depressive disorder, recurrent, mild Category: Medical (8) Hyperparathyroidism: Code(s): E21.3 - Hyperparathyroidism, unspecified Category: Medical Plan The current and proposed management entails continuation of Tresiba and Novolog for diabetes, alongside medications for chronic conditions including Lisinopril and Pravastatin. Mild anxiolytic treatment was suggested to mitigate anxiety symptoms. Ensuring timely reevaluation of serum calcium levels and analysis of parathyroid hormone are incorporated into future care plans. A new appointment for orthotic provisions will be organized, resolving prior scheduling issues. Continuous attention to caregiving stressors, lifestyle modification, and medication adherence were advised to support mental well-being and condition management. Patient was informed and verbally consented to the use of an ambient scribe for clinic note documentation during this visit. During today's visit, I reviewed with the patient the well-controlled state of his diabetes with an A1c of 6.4% and discussed the implications of his current stressors on anxiety and glucose variability. We discussed the use of a mild anxiolytic for increased anxiety symptoms, with reassurance provided on trying and adjusting treatment accordingly based on tolerance. Exploration of sources of stress and potential lifestyle modifications were discussed as part of a comprehensive care approach. Concerning his hypercalcemia, further investigations including parathyroid hormone levels were planned, ensuring a diligent follow-up on systemic concerns. We also resolved the orthotic scheduling issue with the plan to revisit appointments. The patient was encouraged to report any increase in symptom severity or new developments promptly. Orders: Orders AMB Hemoglobin A1c Today E11.65 - Type 2 diabetes mellitus with hyperglycemia, Z79.4 - intermodal dispatcher (current) use of insulin Comprehensive [place]. Panel Fast 4 Months E21.3 - Hyperparathyroidism, unspecified Vitamin D 25-OH Total 4 Months E55.9 - Vitamin D deficiency, unspecified Phosphorus 4 Months E21.3 - Hyperparathyroidism, unspecified Lipid Panel 4 Months E78.5 - Hyperlipidemia, unspecified Microalbumin, Random (w Creat) 4 Months R80.9 - Proteinuria, unspecified Parathyroid Hormone Intact 4 Months E21.3 - Hyperparathyroidism, unspecified Medications: New [diabetic shoes] As directed 1 ea 0RF E11.9 - Type 2 diabetes mellitus without complications Patient Instructions: - Continue current diabetes medication regimen. - Start prescribed medication for anxiety as directed. - Evaluate serum calcium and parathyroid hormone in four months. - Return for follow-up visits as scheduled. - Monitor blood glucose levels and record any significant changes. - Report any side effects promptly, especially with new anxiety medication. - Schedule new orthotic appointment as directed. - Maintain medication adherence and lifestyle recommendations including stress management practices.
[2024-05-31 14:55] VITALS: BP 132/72; BMI 28.2
--- OUTSIDE RECORDS SUMMARY | 2024-05-31 17:52 | XMS_ITS | Patient Health Record ---
Author Organization [facility] Address [address] [place] [address] Care Team Providers Care Quality Control Industrial Engineer Name Role Phone Zaria Barnes Primary Care Provider Marty Cleary Unavailable [phone] Allergies No Known Allergies Reason For Referral No Information Medications Medication SIG (Take, Route, Frequency, Duration) Notes Start Date End Date Status Trulicity 0.75 MG/0.5ML 0.5 ml Subcutane ous once a week Active Lisinopril 40 MG 1 tablet Orally Once a day Active Tresiba FlexTouch Ac tive Aspirin Adult Low Dose 81 MG 1 tablet Orally Once a day Active HumaLOG 100 UNIT/ML 2-16 units/1-20 unit s Subcutaneous tid Active Gabapentin 100 MG 2 capsules Orally at hs Active Carmel 3 1000 MG 1 capsule Orally Onc e a day Active Multi Vitamin/Minerals - 1 tab Orally 1 po qd Active Plavix 75 MG 1 tablet Orally Once a day Not-Taking Isosorbide Mononitrate 60mg 1 tablet Orally 1po qd Activ e Loratadine 10 MG 1 tablet Orally Once a day Not-Taking Vitamin B Complex - Orally Active Pravastatin Sodium 40 MG 1 tablet Orally Once a day Active Vitamin C 500 MG Orally Act samara Immunizations Vaccine Route Administration Date Status Comme nts Influenza Unknown 11/27/2021 Administered Social History Alcohol Screen Question Answer Notes Did you have a drink contain ing alcohol in the past year? Yes How often did you have a dri nk containing alcohol in the past year? Monthly or less (1 point) How many drinks did you have on a typical day when you were drinking in the past year? 1 or 2 drinks (0 point) Points 1 Interpretation Negative Section Notes: He does not smoke or use any significant amounts of alcohol He does not smoke or use any significant amounts of alcohol He does not smoke or use any significant amounts of alcohol Problems Problem Type SNOMED Code ICD Code Onset Dates Problem Status W/U Status Risk Notes Problem [id number] Encounter for screening for malignant neoplasm of colon (Z12.11) Active confirmed Problem 655948166 History of adenomatous polyp of colon (Z86.010) Active confirmed Problem Diverticular disease of colon (762510937) Diverticulosis of large intestine without perforation or abscess without bleeding (K57.30) Active confirmed Problem 831560830 Preprocedural examination (Z01.818) Active confirmed Problem 921064262 Aspirin long-ter m use (Z79.82) Active confirmed Plan Of Treatment Future Test Test Name Order Date COLONOSCOPY 04/02/2011 COLONOSCOPY 11/19/2016 COLONOSCOPY 05/14/2022 Insurance Providers Payer Name Payer Address Payer Phone Subscriber Number Group Number Insured Name Patient Relationship to Insured Coverage Start Date Coverage End Date MEDICARE OF [place] [address] [place] [place] [address] [id number] PRISCILLA DISLA Self - patient is the insured [facility] [employer] [address] [place] [address] [id number] PRISCILLA DISLA Self - patient is the insured Medical (General) History Medical History History ICD Code Hyperlipidemia Hypertension IDDM Coronary artery disease with placement of a stent by Dr. Correia--? of [place] prior to that Denies history of stroke, lung disease, nor renal disease Colonoscopy 05/2011--small tu bular adenoma removed, diverticulosis, internal hemorrhoids; he had previous colonoscopies at [place] Negative colonoscopy in 01/2017 Surgical History Surgery Date(Month/Year) left ear surgery benign breast biopsy
--- OUTSIDE RECORDS SUMMARY | 2024-05-31 17:52 | XMS_ITS | Patient Health Record ---
Author Organization [facility] Address [address] [place] [address] Care Team Providers Care Neurosurgical Nurse Name Role Phone Elizabeth GARRISON, Zaria Primary Care Provider Unavail able Marquise Kumar Unavailable [phone] Allergies Allergen (clinical drug ingredient) Drug/Non Drug Allergy documented on EMR Reaction Allergy Type Onset Date Status Shrimp Flavor swelling, itch Drug Allergy Active Shellfish (FN) Shellfish-derived Products swelling, itch Drug Allergy Active Results Component Value Reference Range Notes HEMOGLOBIN A1C (GLYCOHEMOGLO BIN) Reviewed date:02/01/2024 09:19:51 AM Interpretation: Performing Lab: Notes/Report: TOTAL HEMOGLOBIN (HGBA1C) 6.4 Reason For Referral No Information Medications Medication SIG (Take, Route, Frequency, Duration) Notes Start Date End Date Status Extra Depth Orthopedic Shoes (1 Pair) with Customized Heat Molded Multidensity Innersoles (3 Pair) as directed Dx: IDDM/Polyneuropathy (E10.42), Hammertoe Foot Deformity (M20.41,M20.42), Preulcerative Skin Lesion(s) (L85.1) 12/28/2023 Active Theriot-3 Active Plavix Active Lisinopril 40 MG Orally Act samara Multivitamins Active Benicar Active Toujeo SoloStar Acti ve Fish Oil Active Tylenol Active Pravastatin Sodium A ctive Baby Aspirin Active Trulicity Active Isosorbide Mononitrate Active Gabapentin Active Vit Balanced B-100 A ctive HumaLOG Active Ciclopirox Olamine 0.77 % 1 application Externally Twice a day for 30 days Active Immunizations Vaccine Route Administration Date Status Comme nts COVID-19 Pfizer BioNTech Vaccine Unknown 11/04/2021 Administered 06/04/2020, 06/18/2020 11/18/2020 Influenza Unknown 02/14/2015 Administered Influenza Unknown 01/20/2017 Administered Influenza Unknown 12/17/2017 Administered Influenza Unknown 01/27/2022 Administered Pneumococcal Unknown 01/20/2017 Administered Social History Tobacco Use: Social History Observation Description Date Details (start date - stop date) Never Smoker NA - NA Tobacco Use/Smoking Question Answer Notes Are you a: nonsmoker Alcohol Screen Question Answer Notes Did you have a drink containing alcohol in the p ast year? No Points 0 Interpretation Negative Tobacco use other than smoking: Question Answer Notes Are you an other tobacco user? No Problems Problem Type SNOMED Code ICD Code Onset Dates Problem Status W/U Status Risk Notes Problem Acquired hammer toe of right foot (4079161595553046 ) Other hammer toe(s) (acquired), right foot (M20.41) Active confirmed Response to treatment, Improvemen t Problem Acquired hammer toe of left foot (5424814242902905 ) Other hammer toe(s) (acquired), left foot (M20.42) Active confirmed Response to treatment, Improvemen t Problem Polyneuropathy due to diabetes mellitus type I (300891920) Type 1 diabetes mellitus with diabetic polyneuropathy (E10.42) Active confirmed Vital Signs Blood pressure diastolic 70 mm Hg 04/04/2024 Height 5 ft 6 in in 04/04/2024 Blood pressure systolic 120 mm Hg 04/04/2024 Weight 175 lbs 04/04/2024 BMI 28.24 kg/m2 04/04/2024 Procedures Procedure Date Ordered Date Performed Result Body Sit e 59451-TIJKZNZ NAIL, 6 OR MORE 06/01/2023 N/A 04411-HFBU SKIN LESIONS, OVER 4 06/01/2023 N/A 38635-FYYFOBU NAIL, 6 OR MORE 10/05/2023 N/A 08057-ZHMD SKIN LESIONS, OVER 4 10/05/2023 N/A 17066-YSLXEEF NAIL, 6 OR MORE 12/28/2023 N/A 98767-KSRA SKIN LESIONS, OVER 4 12/28/2023 N/A 28740-NSXMMWU SKIN/TISSUE 02/01/2024 N/A 99879- Debride <25 sq cm 02/22/2024 N/A 30298-GCTBXVF NAIL, 6 OR MORE 04/04/2024 N/A 07266-SNMB SKIN LESIONS, OVER 4 04/04/2024 N/A Encounters Encounter Location Date Provider Diagnosis [address] [address] 06/01/2023 Marquise Kumar Type 1 diabetes mellitus with diabetic polyneuropathy E10.42 ; Onychomycosis B35.1 and Tinea pedis of both feet B35.[address] [address] 10/05/2023 Marquiseclovis Kumar Type 1 diabetes mellitus with diabetic polyneuropathy E10.42 ; Onychomycosis B35.1 and Tinea pedis of both feet B35.[address] [address] 12/28/2023 Marquise Kumar Type 1 diabetes mellitus with diabetic polyneuropathy E10.42 ; Tinea unguium B35.1 ; Other hammer toe(s) (acquired), right foot M20.41 ; Other hammer toe(s) (acquired), left foot M20.42 and Tinea pedis of both feet B35.[address] [address] 02/01/2024 Marquise Kumar Skin ulcer of toe of left foot with fat layer exposed L97.522 ; Cellulitis of toe of left foot L03.032 and Type 1 diabetes mellitus with diabetic polyneuropathy E10.[address] [address] 02/22/2024 Marquise Kumar Cellulitis of toe of left foot L03.032 ; Skin ulcer of toe of left foot, limited to breakdown of skin L97.521 and Type 1 diabetes mellitus with diabetic polyneuropathy E10.[address] [address] 04/04/2024 Marquise Kumar Type 1 diabetes mellitus with diabetic polyneuropathy E10.42 ; Skin ulcer of toe of left foot, limited to breakdown of skin L97.521 and Tinea unguium B35.1 [facility] [address] [address] 10/05/2023 Marquise Kumar [facility] [address] [address] 02/01/2024 Marquise Stacy Assessments Encounter Date Diagnosis (ICD Code) Assessment Notes Treatment Notes Treatment Clinical Notes Section Notes 06/01/2023 Type 1 diabetes mellitus with diabetic polyneuropathy (ICD-10 - E10.42) 06/01/2023 Onychomycosis (ICD-10 - B35.1) 10/05/2023 Type 1 diabetes mellitus with diabetic polyneuropathy (ICD-10 - E10.42) 10/05/2023 Onychomycosis (ICD-10 - B35.1) 12/28/2023 Type 1 diabetes mellitus with diabetic polyneuropathy (ICD-10 - E10.42) 12/28/2023 Tinea unguium (ICD-10 - B35.1) 02/22/2024 Cellulitis of toe of left foot (ICD-10 - L03.032) 02/22/2024 Skin ulcer of toe of left foot, limited to breakdown of skin (ICD-10 - L97.521) Response to treatment Improvement Patient Educated with: WOUND CARE INSTRUCTIONS. pdf (WOUND CARE INSTRUCTIONS. pdf) 04/04/2024 Type 1 diabetes mellitus with diabetic polyneuropathy (ICD-10 - E10.42) 02/01/2024 Cellulitis of toe of left foot (ICD-10 - L03.032) 02/01/2024 Skin ulcer of toe of left foot with fat layer exposed (ICD-10 - L97.522) Response to treatment,Unres olved Patient Educated with: WOUND CARE INSTRUCTIONS. pdf (WOUND CARE INSTRUCTIONS. pdf) 04/04/2024 Skin ulcer of toe of left foot, limited to breakdown of skin (ICD-10 - L97.521) Response to treatment Improvement 02/01/2024 Type 1 diabetes mellitus with diabetic polyneuropathy (ICD-10 - E10.42) 02/22/2024 Type 1 diabetes mellitus with diabetic polyneuropathy (ICD-10 - E10.42) 04/04/2024 Tinea unguium (ICD-10 - B35.1) 10/05/2023 Tinea pedis of both feet (ICD-10 - B35.3) 12/28/2023 Other hammer toe(s) (acquired), right foot (ICD-10 - M20.41) Patient Educated with: DIABETIC FOOT CARE INSTRUCTIONS. pdf (DIABETIC FOOT CARE INSTRUCTIONS. pdf) 06/01/2023 Tinea pedis of both feet (ICD-10 - B35.3) 12/28/2023 Other hammer toe(s) (acquired), left foot (ICD-10 - M20.42) 12/28/2023 Tinea pedis of both feet (ICD-10 - B35.3) 02/01/2024 Other 02/22/2024 Other Plan Of Treatment Pending Test Test Name Order Date Hemoglobin A1c 03/05/2015 37538-NRBUAKL NAIL, 6 OR MORE 03/05/2015 13953-UJTNJYA NAIL, 6 OR MORE 06/04/2015 51213-WSIYICU NAIL, 6 OR MORE 12/04/2014 67551-WOWGMKX NAIL, 6 OR MORE 11/07/2013 48861-YVQUEJG NAIL, 6 OR MORE 02/13/2014 49544-ZYMDCBH NAIL, 6 OR MORE 05/25/2014 38844-MUBWQNJ NAIL, 6 OR MORE 08/24/2014 99208-XFOOLPN NAIL, 6 OR MORE 02/16/2012 75170-TKUTWLS NAIL, 6 OR MORE 05/03/2012 07170-HMWHBMY NAIL, 6 OR MORE 08/02/2012 34862-SLWMARO NAIL, 6 OR MORE 11/11/2012 65076-SKMFJYC NAIL, 6 OR MORE 02/14/2013 56314-GNHXXHB NAIL, 6 OR MORE 05/23/2013 14179-SBZXXAX NAIL, 6 OR MORE 08/22/2013 77153-EYODKHS NAIL, 6 OR MORE 09/03/2015 29459-FFFPWZK NAIL, 6 OR MORE 12/03/2015 72369-JEBLFAO NAIL, 6 OR MORE 03/03/2016 27200-KFRHMDA NAIL, 6 OR MORE 06/02/2016 13368-CPAIICO NAIL, 6 OR MORE 09/01/2016 22596-UCQUNYG NAIL, 6 OR MORE 12/04/2016 08107-MMPEPEJ NAIL, 6 OR MORE 03/09/2017 57472-RAQPAZH NAIL, 6 OR MORE 06/15/2017 00716-FICFVHY NAIL, 6 OR MORE 09/14/2017 28155-SQNDVGK NAIL, 6 OR MORE 12/21/2017 04835-PNLZXTV NAIL, 6 OR MORE 04/05/2018 40177-UGMGQSI NAIL, 6 OR MORE 07/05/2018 02620-ETUDEBN NAIL, 6 OR MORE 10/11/2018 61301-KMDQNHE NAIL, 6 OR MORE 01/10/2019 65931-WKPUMJP NAIL, 6 OR MORE 04/18/2019 97427-MLLZVDT NAIL, 6 OR MORE 07/21/2019 31788-VRGZTTO NAIL, 6 OR MORE 11/21/2019 33622-BYETLFX NAIL, 6 OR MORE 02/27/2020 05413-VYOYQAG NAIL, 6 OR MORE 06/25/2020 33254-BUFXRJF NAIL, 6 OR MORE 10/01/2020 02753-KMALXHS NAIL, 6 OR MORE 12/24/2020 51164-ZKIUGRM NAIL, 6 OR MORE 03/04/2021 49766-ZYIVESD NAIL, 6 OR MORE 05/20/2021 48135-QOOTEUQ NAIL, 6 OR MORE 07/22/2021 84131-RPVWMTC NAIL, 6 OR MORE 09/23/2021 13622-INEEAKB NAIL, 6 OR MORE 12/02/2021 97421-KFSJHGY NAIL, 6 OR MORE 02/24/2022 45869-CTBXJZU NAIL, 6 OR MORE 05/12/2022 33997-HWVFRNE NAIL, 6 OR MORE 07/14/2022 62877-QAUCSMZ NAIL, 6 OR MORE 09/25/2022 71589-FRDHNUB NAIL, 6 OR MORE 12/22/2022 88016-IQCOFNV NAIL, 6 OR MORE 03/19/2023 91438-GXVIKRZ NAIL, 6 OR MORE 06/01/2023 64565-RMCURAD NAIL, 6 OR MORE 10/05/2023 95696-VUHXIUY NAIL, 6 OR MORE 12/28/2023 72883-LXCRMLR NAIL, 6 OR MORE 04/04/2024 79737-Bffp Destruction, 1-14 08/22/2013 55122-Vtol Destruction, 1-14 02/14/2013 55508-Qzek Destruction, 1-14 05/23/2013 77762-Spdv Destruction, 1-14 08/24/2014 77647-Bzcf Destruction, 1-14 05/25/2014 62743-Pkbg Destruction, 1-14 02/13/2014 59267-Ltql Destruction, 1-14 11/07/2013 46981-Uknz Destruction, 1-14 12/04/2014 32640-Agnz Destruction, 1-14 03/05/2015 13652- Debride <25 sq cm 02/22/2024 97317- Debride <25 sq cm 06/23/2022 83218- Debride <25 sq cm 03/10/2022 48890-VTVTWGC SKIN/TISSUE 02/01/2024 74671 I&D ABSCESS- SIMPLE,SINGLE 022 11726-YRZS SKIN LESIONS, OVER 4 05/12/19 23 36454-XQLW SKIN LESIONS, OVER 4 02/25/20 22 12953-GQCL SKIN LESIONS, OVER 4 12/03/19 22 69748-DAGF SKIN LESIONS, OVER 4 03/19/20 23 87270-JEBK SKIN LESIONS, OVER 4 12/23/19 23 17528-FITR SKIN LESIONS, OVER 4 09/26/19 23 24454-LKPR SKIN LESIONS, OVER 4 07/15/19 23 01362-REHM SKIN LESIONS, OVER 4 09/24/19 22 86300-OYTL SKIN LESIONS, OVER 4 07/23/19 22 37535-DRWB SKIN LESIONS, OVER 4 05/20/19 22 88441-QKEN SKIN LESIONS, OVER 4 03/04/20 21 84091-BPTL SKIN LESIONS, OVER 4 12/25/19 21 45387-CJKE SKIN LESIONS, OVER 4 10/02/19 21 64214-WAKF SKIN LESIONS, OVER 4 06/26/19 21 61289-RKKA SKIN LESIONS, OVER 4 02/27/20 20 45765-QSDK SKIN LESIONS, OVER 4 12/28/19 24 42293-WOZB SKIN LESIONS, OVER 4 10/05/19 24 71149-HIRH SKIN LESIONS, OVER 4 06/01/19 24 41048-KVVZ SKIN LESIONS, OVER 4 04/04/19 25 05028-RLQQ SKIN LESIONS, OVER 4 12/05/19 15 38647-LJHP SKIN LESIONS, OVER 4 06/04/19 16 22979-WFPF SKIN LESIONS, OVER 4 03/05/20 15 90257-OUXP SKIN LESIONS, OVER 4 02/14/20 14 72541-JHVG SKIN LESIONS, OVER 4 05/25/19 15 94386-XGSO SKIN LESIONS, OVER 4 08/25/19 15 08852-RPMQ SKIN LESIONS, OVER 4 11/21/19 20 03878-MFHS SKIN LESIONS, OVER 4 07/21/19 20 90440-OCJH SKIN LESIONS, OVER 4 04/18/19 20 79300-CWYA SKIN LESIONS, OVER 4 01/11/20 19 25910-MGLG SKIN LESIONS, OVER 4 10/12/19 19 19235-OUAC SKIN LESIONS, OVER 4 07/06/19 19 07909-UKMK SKIN LESIONS, OVER 4 04/05/19 19 10637-OSXA SKIN LESIONS, OVER 4 12/22/19 18 59597-ROOG SKIN LESIONS, OVER 4 09/15/19 18 81604-KVOR SKIN LESIONS, OVER 4 06/16/19 18 90631-BTWC SKIN LESIONS, OVER 4 03/09/20 17 55131-UFQE SKIN LESIONS, OVER 4 12/05/19 17 63701-BEKY SKIN LESIONS, OVER 4 06/03/19 17 46312-JRHI SKIN LESIONS, OVER 4 09/02/19 17 94259-VMCJ SKIN LESIONS, OVER 4 03/03/20 16 66604-EFUV SKIN LESIONS, OVER 4 12/03/19 16 71642-DASB SKIN LESIONS, OVER 4 09/03/19 16 03057-IGEF SKIN LESIONS, 2 TO 4 11/08/19 14 27138-BCPI SKIN LESIONS, 2 TO 4 02/16/20 12 51642-YGNW SKIN LESIONS, 2 TO 4 11/12/19 13 89251-JMLA SKIN LESIONS, 2 TO 4 02/15/20 13 21101-ZDQE SKIN LESIONS, 2 TO 4 08/23/19 14 75337-ANJU SKIN LESIONS, 2 TO 4 05/23/19 14 46381-DLFM SKIN LESIONS, 2 TO 4 08/03/19 13 91221-JWTA SKIN LESIONS, 2 TO 4 05/03/19 13 54276-YBQX SKIN LESIONS, 2 TO 4 12/31/19 11 81234-QHXK SKIN LESIONS, 2 TO 4 05/12/19 12 J4142-NIWAGKEC DYSTROPHIC NAILS ANY # G7077-WTCBXLWI DYSTROPHIC NAILS ANY # Next Appt Details Provider Name:Marquise Kumar , 07/04/2024 03:15:00 PM, [address] [place], [address], Insurance Providers Payer Name Payer Address Payer Phone Subscriber Number Group Number Insured Name Patient Relationship to Insured Coverage Start Date Coverage End Date Medicare National [employer]t [employer] [address] [place] [phone] [id number] Shane Bueno Self - patient is the insured [employer] ([facility]) [address] [place] [address] [id number] Shane Bueno Self - patient is the insured Medical (General) History Medical History History ICD Code chicken pox back, hip, knee pain cholesterol hypertension type II diabetes Multiple sclerosis Surgical History Surgery Date(Month/Year) ear surgery heart surgery stent insertion 2008 Hospitalization History Reason Date(Month/Year) C- toe issues 01/28/24
--- OUTSIDE RECORDS SUMMARY | 2024-05-31 17:52 | XMS_ITS ---
[facility] Address [address] [place] [address] Care Team Providers [facility] Consultant Name Role Phone Elizabeth GARRISON, Zaria Primary Care Provider Unavail able Marquise Kumar Unavailable [phone] Allergies Allergen (clinical drug ingredient) Drug/Non Drug Allergy documented on EMR Reaction Allergy Type Onset Date Status Shrimp Flavor swelling, itch Drug Allergy Active Shellfish (FN) Shellfish-derived Products swelling, itch Drug Allergy Active REASON FOR VISIT At Risk Footcare, Open sore - Toe Medications Medication SIG (Take, Route, Frequency, Duration) Notes Start Date End Date Status Toujeo SoloStar Acti ve Tylenol Active Vit Balanced B-100 A ctive Ciclopirox Olamine 0.77 % 1 application Externally Twice a day for 30 days Active Extra Depth Orthopedic Shoes (1 Pair) with Customized Heat Molded Multidensity Innersoles (3 Pair) as directed Dx: IDDM/Polyneuropathy (E10.42), Hammertoe Foot Deformity (M20.41,M20.42), Preulcerative Skin Lesion(s) (L85.1) 12/28/2023 Active [place]-3 Active Plavix Active Multivitamins Active Pravastatin Sodium A ctive Trulicity Active Lisinopril 40 MG Orally Act samara Fish Oil Active Isosorbide Mononitrate Active Gabapentin Active HumaLOG Active Benicar Active Baby Aspirin Active Social History Tobacco Use: Social History Observation [...] Are you an other tobacco user? No Vital Signs Height 5 ft 6 in in 04/04/2024 Weight 175 lbs 04/04/2024 BMI 28.24 kg/m2 04/04/2024 Blood pressure systolic 120 mm Hg 04/04/19 Blood pressure diastolic 70 mm Hg 025 Procedures Procedure Date Ordered Date Performed Result Body Sit e 79628-BLTFTDX NAIL, 6 OR MORE 04/04/2024 N/A 98329-RUWH SKIN LESIONS, OVER 4 04/04/2024 N/A Encounters Encounter Location Date Provider Diagnosis [facility] [address] [place] [address] 04/04/2024 Marquise Stacy Type 1 diabetes mellitus with diabetic polyneuropathy E10.42 ; Skin ulcer of toe of left foot, limited to breakdown of skin L97.521 and Tinea unguium B35.1 Assessments Encounter Date Diagnosis (ICD Code) Assessment Notes Treatment Notes Treatment Clinical Notes Section Notes 04/04/2024 Type 1 diabetes mellitus with diabetic polyneuropathy (ICD-10 - E10.42) 04/04/2024 Skin ulcer of toe of left foot, limited to breakdown of skin (ICD-10 - L97.521) Response to treatment Improvement 04/04/2024 Tinea unguium (ICD-10 - B35.1) Plan Of Treatment Pending Test Test Name Order Date 31098-SYKOTUJ NAIL, 6 OR MORE 04/04/2024 16681-QGCC SKIN LESIONS, OVER 4 04/04/19 25 Next Appt Details Follow Up: prn, Reason: Provider Name:Marquise Alex SethStacy , 07/04/2024 03:15:00 PM, [address] [place] [address], [id number], Procedure Notes * Category Sub-Category Detail Notes Debride Nail 6-10 Nail debridement Due to the cl inical pathology outlined in the exam findings, performance of this nail treatment is medically necessary as its management by an unskilled/untrained nonprofessional would put this patients foot and overall health at risk. Therefore, debridement to affected nail(s), as described in exam ( TA, T1, T2, T3, T4, T5, T6, T7, T8, T9), was performed exclusively by the physician of record to reduce/remove overall nail length, girth, thickness, subungual debris, and necrotic tissue, by manual and/or electrical means through the use of a nail nipper and/or dremel-type lens shaper grinder, to a more viable healthy nail plate or bed tissue 6-10 nails in total. Silver nitrate was used for any petechial bleeding as necessary. Definitive antifungal treatment options, both pharmaceutical and surgical, have been reviewed and discussed with the patient. The patient solely prefers the use of intermittent/as needed professional debridement services for their nail condition and understands the need for additional periodic treatments to maintain effectiveness in symptomatic relief - 63364 Keratoma Treatment Parring or Cutting o f Benign Hyperkeratotic Lesion(s) (-57) More than 4 Lesions - Due to the at risk nature of the patients medical condition as documented in the exam findings, performance of this keratoderma treatment is medically necessary as its management by an unskilled/untrained nonprofessional would put this patients foot and overall health at risk. 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 Provider:?Marquise Kumar DPM :1945???Age:78 Y???Sex:Male Evangelista e:04/04/2024 Address:[address] [place], [place] [address], [id number] Pcp:Zaria Johnson MD Subjective: * Chief Complaints: * ???At Risk FootcareOpen sore - Toe * HPI: ???At Risk footcare:?Pt States Last PCP Visit:?Date?09/27/2023 ???Skin problems:?Nature:?Open sore , Ulcer?.?Location:?Bottom , Tip , 1st , Toe(s) , Left?.?Treatments:?medication ( Doxy 100 mg BID and Bacitracin topical ointment), Local care consisting of daily distilled water wound cleanse, topical antibiotic as recommended from [facility], application of sterile dressing, offloading/pressure reduction via rest, shoe modification, insert modification, accommodative padding, assisted ambulation via cane, and surgical debridement.? * ROS:?General/Constitutional:?Nausea?denies.?Vomiting?denies.?Hunger Thirst?denies.?Loss appetite?denies.?Chills?denies.?Fatigue?denies.?Fever?denies.?Night Sweats?denies.?Unexplained weight loss?denies.?Ophthalmologic:?Blurred vision?denies.?Red eye?denies.?HEENTM:?Dentures?denies.?Dizziness?denies.?Glasses/contacts?admits.?Retinopathy?den ies.?Blurred/double vision?denies.?TMJ?denies.?Discharge/drainage?denies.?Implants?denies.?Hard of hearing denies.?Difficulty chewing/swallowing/speaking?denies.?Nose bleeds?denies.?Sore mouth?denies.?Swollen glands?denies.?Respiratory:?On O xygen?denies.?Pneumonia/pleurisy?denies.?Bronchitis?denies.?Emphysema?denies.?Co ughing?denies.?Cough blood?denies.?Shortness of breath?denies.?Wheezing?denies.?Cardiovascular:?Pacemaker?denies.?MVP?denies.?WPW?denies.?CHF?denies.?Heart attack?denies.?Septal defect?denies.?Rapid beat?denies.?Chest pain ?denies.?Atrial Fib.?denies.?Murmur/Palpitations?denies.?Gastrointestinal:?Hemorrhoids?denies.?Stomach/Abdominal pain?denies.?Dark blood stool?denies.?Irritable bowel ?denies.?Constipation?denies.?Diarrhea?denies.?Vomiting?denies.?Hematology:?Swelling?denies.?Bruising??admits, on aspirin.?Bleeding problem??admits, on anticoagulants.?Genitourinary:?Blood urine?denies.?Frequent/Painfu/urination/bladder control?denies.?Kidney stones?denies.?Infection (UTI)?denies.?Nephropathy?denies.?Musculoskeletal:?Hammertoes?admits.?Bunions?denies.?Scoliosis/kyphosis?denies.?Muscle cramps / walking?denies.?Generalized aches and pains?denies.?Weakness?denies.?Integ.:?Gil?denies.?Scars?denies.?Corns/calluses?admits.?Ingrown nails?admits.?Painful nails?denies.?Rashes?denies.?Neurologic:?Difficulty sleeping?denies.?Bipolar?denies.?Brain disorder?denies.?Balance t rouble?admits.?Confusion?denies.?Fainting/blackouts?denies.?Headache?denies.?Kishore mors?denies.? * Medical History:? * Surgical History:?ear surger y heart surgery stent insertion 2008 * Hospitalization/Major Diagno stic Procedure:?[facility]- toe issues 01/28/24 * Family History:?Mother: dece ased, diagnosed with Diabetic - NIDDM, Family history of arthritis.?Father: , diagnosed with Unspecified heart disease.?Siblings: heart attack, stroke.?2 son(s) , 1 daughter(s) . .? * Social History:?Tobacco Use:?Tobacco Use/Smoking?Are you a:?nonsmoker ?Tobacco use other than smoking?Are you an other tobacco user??No ???Drugs/Alcohol:?Drugs?Have you used drugs other than those for medical reasons in the past 12 months??No ?Alcohol Screen?Did you have a drink containing alcohol in the past year??No ?Points?0 ?Interpretation?Negative ???Miscellaneous:?Caffeine: 1-2 cups per day. ?Exercise: no. ?Occupation: Retired. * Medications:?TakingBaby Aspi rin Benicar Fish Oil Gabapentin HumaLOG Isosorbide Mononitrate Lisinopril 40 MG Tablet Orally Multivitamins Slidell-3 Plavix Pravastatin Sodium Trulicity Toujeo SoloStar Tylenol Vit Balanced B-100 Ciclopirox Olamine 0.77 % Cream 1 application Externally Twice a day Extra Depth Orthopedic Shoes (1 Pair) with Customized Heat Molded Multidensity Innersoles (3 Pair) as directed Dx: IDDM/Polyneuropathy (E10.42), Hammertoe Foot Deformity (M20.41,M20.42), Preulcerative Skin Lesion(s) (L85.1) Medication List reviewed and reconciled with the patientTaking Baby Aspirin Taking Benicar Taking Fish Oil Taking Gabapentin Taking HumaLOG Taking Isosorbide Mononitrate Taking Lisinopril 40 MG Tablet Orally Taking Multivitamins Taking Sl[place]ell-3 Taking Plavix Taking Pravastatin Sodium Taking Trulicity Taking Toujeo SoloStar Taking Tylenol Taking Vit Balanced B-100 Taking Ciclopirox Olamine 0.77 % Cream 1 application Externally Twice a day Taking Extra Depth Orthopedic Shoes (1 Pair) with Customized Heat Molded Multidensity Innersoles (3 Pair) as directed Dx: IDDM/Polyneuropathy (E10.42), Hammertoe Foot Deformity (M20.41,M20.42), Preulcerative Skin Lesion(s) (L85.1) Medication List reviewed and reconciled with the patient * Allergies:?Shrimp Flavor: sw elling, itchShellfish-derived Products: swelling, itchyes[Allergies Verified] Objective: * Vitals:?Ht: 5 ft 6 in, Wt:17 5, BMI: 28.24, Shoe size:9, BP:120/70mm Hg, BS:92, Wt-k.38 kg. * ???Past Orders: ???Lab:HEMOGLOBIN A1C (GLYCO HEMOGLOBIN) (Order Date - 01/17/2024) (Collection Date & Time - 01/17/2024 09:18 AM) ? Value Reference Range ?TOTAL HEMOGLOBIN (HGBA1C) 6.4 * Examination: ???Ophthalmology Referral: ?DIABETES EYE EXAM?Procedure Performed:?Yes ?Date of Exam Performed?05/14/2023 ?Diabetic Retinopathy Screening:?Yes ?Findings of Diabetic Eye Exam:?no retinopathy?Neurological: ?SENSORY:?Neurological exam demonstrates, reduced light touch sensation, reduced sharp/dull discrimination lower extremity, reduced vibration lower extremity, reduced proprioception lower extremity, at Forefoot, B/L, in a stocking fashion, 5.07 monofilament test performed at plantar aspects of 5 varied sites per foot shows sensation, reduced, B/L, Pt relates, paresthesia, B/L.?Nails: ?NAILS are:?Elongated, overgrown, dystrophic, lytic, greater than 3mm thick, discolored and friable with crumbly malodorous subungual debris, TA, T1, T2, T3, T4, T5, T6, T7, T8, T9.?Dermatologic: ?SKIN FINDINGS:?Skin exam reveals Keratotic lesion(s) located at, Plantar, IPJ, TA, Medial plantar, IPJ, T5, Dorsal, PIPJ, T9, SUB MTH (s), 1, B/L , Plantar, Heel(s) , B/L?.?ULCER:?NOW shows complete re-epithelialization, Plantar, Distal, TA, .? Assessment: * Assessment: 1.?Type 1 diabetes mellitus with diabetic polyneuropathy - E10.42???2.?Skin ulcer of toe of left foot, limited to breakdown of skin - L97.521 (Primary)???Specify :Acute problem, Stable???Notes :Response to treatment Improvement???3.?Tinea unguium - B35.1??? Plan: * Treatment: * Procedures:?Debride Nail 6-10:?Nail debridement?Due to the clinical pathology outlined in the exam findings, performance of this nail treatment is medically necessary as its management by an unskilled/untrained nonprofessional would put this patients foot and overall health at risk. Therefore, debridement to affected nail(s), as described in exam (?TA, T1, T2, T3, T4, T5, T6, T7, T8, T9), was performed exclusively by the physician of record to reduce/remove overall nail length, girth, thickness, subungual debris, and necrotic tissue, by manual and/or electrical means through the use of a nail nipper and/or dremel-type lens shaper grinder, to a more viable healthy nail plate or bed tissue 6- 10 nails in total. Silver nitrate was used for any petechial bleeding as necessary. Definitive antifungal treatment options, both pharmaceutical and surgical, have been reviewed and discussed with the patient. The patient solely prefers the use of intermittent/as needed professional debridement services for their nail condition and understands the need for additional periodic treatments to maintain effectiveness in symptomatic relief - 69753.?Keratoma Treatment:?Parring or Cutting of Benign Hyperkeratotic Lesion(s)?(-57) More than 4 Lesions - Due to the at risk nature of the patients medical condition as documented in the exam findings, performance of this keratoderma treatment is medically necessary as its management by an unskilled/untrained nonprofessional would put this patients foot and overall health at risk. Therefore, the benign hyperkeratotic lesions, ( 9) in total, locations as stated and described in the exam (?Plantar,?IPJ,?TA,?Medial plantar,?IPJ,?T5,?Dorsal,?PIPJ,?T9,?SUB MTH (s),?1,?B/L?,?Plantar,?Heel(s)?,?B/L), were pared, and/or cut utilizing a sterile 15 blade, tissue nippers, and/or power dremel instrumentation by the physician of record - 03630.? * Procedure Codes:?92286 DEBRI DE NAIL, 6 OR MORE, Modifiers: XS 38893 TRIM SKIN LESIONS, OVER 4, Modifiers: XS 1036F TOBACCO NON-USER * Preventive Medicine:? ??Counseling:?Discussion:?-13: Office or other outpatient visit for the evaluation and management of an established patient, which required a medically appropriate history and/or examination and LOW level of DECISION MAKING for: 1 STABLE ACUTE UNCOMPLICATED PROBLEM, 2 OR MORE MINOR PROBLEMS, OR 1 STABLE CHRONIC PROBLEM, THAT POSE(S) A LOW RISK FOR MORBIDITY/MORTALITY. The visit on the day of the encounter encompassed interpreting the data and educating the patient as to the nature of their condition, treatment options available according to their individual PMH, meds, allergies, and overall health/living conditions, as well as any potential risks or complications that may occur from a failure to adhere to, and participate in, the recommended course of therapy. The discussion included a complete verbal, and/or written explanation of the examination results, any x-rays taken, the proposed diagnosis, and outline of the treatment plan. A schedule for future care needs was also explained. The patient verbalized an understanding of the instructions at this time and agreed to be an active participant in their treatment. If the patient should think of any questions or concerns after the visit, I have encouraged the patient to call the office.?Ulcer:?PREVENTIVE STRATEGIES were reviewed with the patient to avoid recurrent ulceration. A set of verbal and written instructions regarding proper daily diabetic footcare techniques was discussed and dispensed. The patient is to pay close attention to skin hydration by maintaining proper moisturization through correct water consumption and consistent application of skin lotions/creams/ointments. They are also to perform regular visual and tactile foot inspections for any interruption in skin integrity including cracks, open lesions, and immediately report to the office any sign of infection such as redness/malodor/drainage/swelling. We discussed and recommended practices and procedures regarding regular shoe and insert evaluations for the presence of foreign bodies as well as for any irregular shoe or insert wear. We reinforced the importance for the patient to adhere to wearing their orthopedic shoes and pressure accommodative innersoles whenever walking. We stressed the significant value for the patient to remain consistent concerning their medically prescribed diet, participate in regular nonweight-bearing exercise (seated weights, exercise bike, or swimming), and keep their scheduled at risk foot care podiatric appointments. We also reviewed the possible role for additional Rx foot/leg bracing or surgical intervention when/if medically warranted.? ??Screening/Special Tests:?Fall Risk?Screening:?No falls in the past year Despite related balance issues/unsteady gate, Despite neuropathy ?FALLS: Screening for Future Fall Risk?Have you had any falls with injury in the past year??No Despite related balance issues/unsteady gate, Despite neuropathy * Follow Up:?prn * Images: * Sign off status: Completed true * Provider:?Marquise Kumar DPM Date:?2024 Generated for Ileana ambriz/Jose Manuel/Luna on:?05/31/2024 05:51 PM EST History and Physical Notes * HPI (History of Present Illness) Category Sub-Category Detail Notes Category Not es Skin problems Nature: Open sore , Ulcer Location: Bottom , Tip , 1st , Toe(s) , Left Treatments: medication ( Doxy 10 0 mg BID and Bacitracin topical ointment), Local care consisting of daily distilled water wound cleanse, topical antibiotic as recommended from [facility], application of sterile dressing, offloading/pressure reduction via rest, shoe modification, insert modification, accommodative padding, assisted ambulation via cane, and surgical debridement At Risk footcare Pt States Last PCP Visit: Date: 4 Examination Category Sub-Category Detail Notes Category Not es Neurological SENSORY: Neurological exa m demonstrates, reduced light touch sensation, reduced sharp/dull discrimination lower extremity, reduced vibration lower extremity, reduced proprioception lower extremity, at Forefoot, B/L, in a stocking fashion, 5.07 monofilament test performed at plantar aspects of 5 varied sites per foot shows sensation, reduced, B/L, Pt relates, paresthesia, B/L Dermatologic SKIN FINDINGS: Skin exam reveal s Keratotic lesion(s) located at, Plantar, IPJ, TA, Medial plantar, IPJ, T5, Dorsal, PIPJ, T9, SUB MTH (s), 1, B/L , Plantar, Heel(s) , B/L ULCER: NOW shows complete r e-epithelialization, Plantar, Distal, TA, Ophthalmology Referral DIABETES EYE EXAM Procedure Perform ed:: Yes ?Date of Exam Performed: 05/14/2023 Diabetic Retinopathy Screening:: Yes Findings of Diabetic Eye Exam:: no retin opathy Nails NAILS are: Elongated, overg rown, dystrophic, lytic, greater than 3mm thick, discolored and friable with crumbly malodorous subungual debris, TA, T1, T2, T3, T4, T5, T6, T7, T8, T9
--- OUTSIDE RECORDS SUMMARY | 2024-05-31 17:52 | XMS_ITS ---
Author Organization [facility] Address [address] [place] [address] Care Team Providers Care Public Address Announcer Name Role Phone Elizabeth GARRISON, Zaria Primary Care Provider Unavail able Marquise Kumar Unavailable [phone] Allergies Allergen (clinical drug ingredient) Drug/Non Drug Allergy documented on EMR Reaction Allergy Type Onset Date Status Shrimp Flavor swelling, itch Drug Allergy Active Shellfish (FN) Shellfish-derived Products swelling, itch Drug Allergy Active REASON FOR VISIT Open sore - Toe, Skin problem(s) Medications Medication SIG (Take, Route, Frequency, Duration) Notes Start Date End Date Status Multivitamins Active Lisinopril 40 MG Orally Act samara Isosorbide Mononitrate Active Plavix Active Wardell-3 Active HumaLOG Active Gabapentin Active Fish Oil Active Benicar Active Baby Aspirin Active Extra Depth Orthopedic Shoes (1 Pair) with Customized Heat Molded Multidensity Innersoles (3 Pair) as directed Dx: IDDM/Polyneuropathy (E10.42), Hammertoe Foot Deformity (M20.41,M20.42), Preulcerative Skin Lesion(s) (L85.1) 12/28/2023 Active Ciclopirox Olamine 0.77 % 1 application Externally Twice a day for 30 days Active Vit Balanced B-100 A ctive Tylenol Active Toujeo SoloStar Acti ve Trulicity Active Pravastatin Sodium A ctive Social History Tobacco Use: Social History Observation [...] Signs Height 5 ft 6 in in 02/22/2024 Weight 175 lbs 02/22/2024 BMI 28.24 kg/m2 02/22/2024 Blood pressure systolic 120 mm Hg 02/22/20 Blood pressure diastolic 80 mm Hg 024 Procedures Procedure Date Ordered Date Performed Result Body [place] e 99212- Debride <25 sq cm 02/22/2024 N/A Encounters Encounter Location Date Provider Diagnosis [facility] [place] [address] [place] [address] 02/22/2024 Marquise Stacy Cellulitis of toe of left foot L03.032 ; Skin ulcer of toe of left foot, limited to breakdown of skin L97.521 and Type 1 diabetes mellitus with diabetic polyneuropathy E10.42 Assessments Encounter Date Diagnosis (ICD Code) Assessment Notes Treatment Notes Treatment Clinical Notes Section Notes 02/22/2024 Cellulitis of toe of left foot (ICD-10 - L03.032) 02/22/2024 Skin ulcer of toe of left foot, limited to breakdown of skin (ICD-10 - L97.521) Response to treatment Improvement Patient Educated with: WOUND CARE INSTRUCTIONS. pdf (WOUND CARE INSTRUCTIONS. pdf) 02/22/2024 Type 1 diabetes mellitus with diabetic polyneuropathy (ICD-10 - E10.42) 02/22/2024 Other Plan Of Treatment Treatment Notes Assessment Notes Skin ulcer of toe of left fo ot, limited to breakdown of skin Patient Educated with: WOUND CARE INSTRUCTIONS.pdf (WOUND CARE INSTRUCTIONS.pdf) Pending Test Test Name Order Date 32937- Debride <25 sq cm 02/22/2024 Next Appt Details Follow Up: 6 Weeks, Reason: Provider Name:Marquise Kumar , 07/04/2024 03:15:00 PM, [address] [place], [address], Procedure Notes * Category Sub-Category Detail Notes Debride skin< 25 sq cm Open wound NEUROPATH Y: Physician of record performed open wound selective debridement of first 25 sq cm or less, of devitilized necrotic/nonviable soft tissue, fibrin, and exudate extending from the epidermis through the dermis, utilizing sharp dissection with sterile 15 blade, and/or tissue nippers. Hemostasis was controlled through direct pressure. Sterile antibiotic dressing applied, ANESTHESIA was not required due to presence of NEUROPATHY. Post debridement measurements: 4mm x 4mm x 2mm. 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 Provider:?Marquise Kumar DPM :1945???Age:78 Y???Sex:Male Evangelista e:02/22/2024 Address:[address] [place] [address], [place], [id number] Pcp:Zaria Johnson MD Subjective: * Chief Complaints: * ???Open sore - ToeSkin probl em(s) * HPI: ???Skin problems:?Nature:?Open sore , Ulcer ,redness, swelling , tender.?Location:?Bottom , Tip , 1st , Toe(s) , Left?.?Treatments:?medication ( Doxy 100 mg BID and Bacitracin topical ointment), Local care consisting of daily distilled water wound cleanse, topical antibiotic as recommended from [facility], application of sterile dressing, offloading/pressure reduction via rest, shoe modification, insert modification, accommodative padding, assisted ambulation via cane/ crutch/ walker/ wheel chair/ knee scooter, and surgical debridement.? * ROS:?General/Constitutional:?Nausea?denies.?Vomiting?denies.?Hunger Thirst?denies.?Loss appetite?denies.?Chills?denies.?Fatigue?denies.?Fever?denies.?Night Sweats?denies.?Unexplained weight loss?denies.?Ophthalmologic:?Blurred vision?denies.?Red eye?denies.?HEENTM:?Dentures?denies.?Dizziness?denies.?Glasses/contacts?admits.?Retinopathy?de nies.?Blurred/double vision?denies.?TMJ?denies.?Discharge/drainage?denies.?Implants?denies.?Hard of hearing denies.?Difficulty chewing/swallowing/speaking?denies.?Nose bleeds?denies.?Sore mouth?denies.?Swollen glands?denies.?Respiratory:?On Oxygen?denies.?Pneumonia/pleurisy?denies.?Bronchitis?denies.?Emphysema?denies.?C oughing?denies.?Cough blood?denies.?Shortness of breath?denies.?Wheezing?denies.?Cardiovascular:?Pacemaker?denies.?MVP?denies.?WPW?denies.?CHF?denies.?Heart attack?denies.?Septal defect?denies.?Rapid beat?denies.?Chest pain ?denies.?Atrial Fib.?denies.?Murmur/Palpitations?denies.?Gastrointestinal:?Hemorrhoids?denies.?Stomach/Abdominal pain?denies.?Dark blood stool?denies.?Irritable bowel ?denies.?Constipation?denies.?Diarrhea?denies.?Vomiting?denies.?Hematology:?Swelling?denies.?Bruising??admits, on aspirin.?Bleeding problem??admits, on anticoagulants.?Genitourinary:?Blood urine?denies.?Frequent/Painfu/urination/bladder control?denies.?Kidney stones?denies.?Infection (UTI)?denies.?Nephropathy?denies.?Musculoskeletal:?Hammertoes?admits.?Bunions?denies.?Scoliosis/kyphosis?denies.?Muscle cramps / walking?denies.?Generalized aches and pains?denies.?Weakness?denies.?Integ.:?Gil?denies.?Scars?denies.?Corns/calluses?admits.?Ingrown nails?admits.?Painful nails?denies.?Rashes?denies.?Neurologic:?Difficulty sleeping?denies.?Bipolar?denies.?Brain disorder?denies.?Balance trouble?admits.?Confusion?denies.?Fainting/blackouts?denies.?Headache?denies.?Tr emors?denies.? * Medical History:? * Surgical History:?ear surger y heart surgery stent insertion 2008 * Hospitalization/Major Diagno stic Procedure:?[facility]- toe issues 01/28/24 * Family History:?Mother: dece [...] Mononitrate Lisinopril 40 MG Tablet Orally Multivitamins Wardell-3 Plavix Pravastatin Sodium Trulicity Toujeo SoloStar Tylenol [...] 40 MG Tablet Orally Taking Multivitamins Taking Wardell-3 Taking Plavix Taking Pravastatin Sodium Taking Trulicity [...] in, Wt:17 5, BMI: 28.24, Shoe size:9, BP:120/80mm Hg, BS:120, Wt-k.38 kg. * ???Past Orders: ???Lab:HEMOGLOBIN A1C (GLYCO HEMOGLOBIN) (Order Date - 01/17/2024) (Collection Date & Time - 01/17/2024 09:18 AM) ? Value Reference Range ?TOTAL HEMOGLOBIN (HGBA1C) 6.4 * Examination: ???Dermatologic: ?SKIN FINDINGS:? Skin shows NO FURTHER sign(s) of, localized cellulitis TA?.?ULCER:?LOCATION,?Plantar,?Distal,?TA, SIZE, 3mm X 3 mm X 2mm, BASE, granular, RIM, hyperkeratotic, UNDERMINING, absent, TRACKING, Full thickness breakdown of skin, DRAINAGE, serosanguineous, mild, NECROTIC TISSUE, loosely-adherent, yellow slough, MALODOR, absent, CALOR, absent, ERYTHEMA, absent.? Assessment: * Assessment: 1.?Cellulitis of toe of left foot - L03.032???Specify :Acute problem, Stable Response to treatment - Improvement???2.?Skin ulcer of toe of left foot, limited to breakdown of skin - L97.521 (Primary)???Notes :Response to treatment Improvement???3.?Type 1 diabetes mellitus with diabetic polyneuropathy - E10.42??? Plan: * Treatment: * Procedures:?Debride skin< 25 sq cm:?Open wound?NEUROPATHY: Physician of record performed open wound selective debridement of first 25 sq cm or less, of devitilized necrotic/nonviable soft tissue, fibrin, and exudate extending from the epidermis through the dermis, utilizing sharp dissection with sterile 15 blade, and/or tissue nippers. Hemostasis was controlled through direct pressure. Sterile antibiotic dressing applied, ANESTHESIA was not required due to presence of NEUROPATHY. Post debridement measurements: 4mm x 4mm x 2mm. Character of the wound post debridement is stable (10122).? * Procedure Codes:?14891 ACTIV E WOUND CARE/20 CM OR < * Preventive Medicine:? ??Counseling:?Discussion:?-12: Office or other outpatient visit for the evaluation and management of an established patient, which required a medically appropriate history and/or examination and STRAIGHTFORWARD level of MEDICAL DECISION MAKING, 1 SELF-LIMITED OR MINOR PROBLEM, MINIMAL- NO AMOUNT/COMPLEXITY OF DATA TO BE REVIEWED/ANALYZED, AND MINIMAL RISK OF COMPLICATION/MORBIDITY. The visit on the day of the [...] have encouraged the patient to call the office.?Consult:?The patient was counseled on the diagnosis, treatment options, and the CONT need for a, Wound Care Center Consult. Pt states has another appt scheduled for this week.?Cellulitis/Lymphangitis?Given recent successful results to treatment, The patient is to continue the plan as directed.?Ulcer:?The patient is to CONT TO cleanse the wound with warm soapy water/peroxide/saline, or betadine BID based on product availability. The patient is to apply ( TOPICAL PER WOUND CARE) Antibiotic to the wound and cover with a DSD as directed. The patient was instructed to change dressings according to orders, or PRN saturation, leaks. The patient was instructed to monitor and report any signs or symptoms of infection or any untoward reactions. Precautions Taken: Offloading/Pressure reduction via rest/ limited activity to essential to daily life only, cane, shoe modification, accommodative padding, sharp debridement, and take/apply medication as directed. THE GOALS of wound debridement to remove devitilized tissue, decrease risk for infection, promote wound healing and prevent further complication were discussed/reviewed. Debridement frequency as indicated, CONT Referral to Wound Care Center due to pedal risk of limb/life.? ??Screening/Special Tests:?Fall Risk?Screening:?No falls in the past year Despite related balance issues/unsteady gate, Despite neuropathy ?FALLS: Screening for Future Fall Risk?Have you had any falls with injury in the past year??No Despite related balance issues/unsteady gate, Despite neuropathy * Follow Up:?6 Weeks * Images: * Sign off status: Completed true * Provider:?Marquise Kumar DPM Date:?2023 Generated for Ileana ambriz/Jose Manuel/Ranjanitting on:?05/31/2024 05:52 PM EST History and Physical Notes * HPI (History of Present Illness) Category Sub-Category Detail Notes Category Not es Skin problems Nature: Open sore , Ulce r , redness , swelling , tender Location: Bottom , Tip , 1st , Toe(s) , Left Treatments: medication ( Doxy 10 0 mg BID and Bacitracin topical ointment), Local care consisting of daily distilled water wound cleanse, topical antibiotic as recommended from [facility], application of sterile dressing, offloading/pressure reduction via rest, shoe modification, insert modification, accommodative padding, assisted ambulation via cane/ crutch/ walker/ wheel chair/ knee scooter, and surgical debridement Examination Category Sub-Category Detail Notes Category Not es Dermatologic SKIN FINDINGS: Skin shows NO FU RTHER sign(s) of, localized cellulitis TA ULCER: LOCATION, Plantar, D istal, TA, SIZE, 3mm X 3 mm X 2mm, BASE, granular, RIM, hyperkeratotic, UNDERMINING, absent, TRACKING, Full thickness breakdown of skin, DRAINAGE, serosanguineous, mild, NECROTIC TISSUE, loosely-adherent, yellow slough, MALODOR, absent, CALOR, absent, ERYTHEMA, absent
--- OUTSIDE RECORDS SUMMARY | 2024-05-31 17:53 | XMS_ITS ---
Author Organization [facility] Address [address] [place] [address] Care Team Providers Care Workers Compensation Specialist Name Role Phone Elizabeth GARRISON, Zaria Primary Care Provider Unavail Marquise Damico Unavailable [phone] REASON FOR VISIT [facility] Wound Care Encounters Encounter Location Date Provider Diagnosis [address] [address] 02/01/2024 Marquise Kumar Plan Of Treatment Next Appt Details Provider Name:Marquise Kumar , 07/04/2024 03:15:00 PM, [address] [place], [address], Progress Notes * Jarek MESAoDOB: (78 yo M)Acc No.[id number]:02/01/2024 Patient:?Anette MESA :1945???Age:78 Y???Sex:Male Address:[address] [facility], [place], [address] * true * Date:? Generated for Ileana ambriz/Jose Manuel/eTransmitting on:?05/31/2024 05:52 PM EST
== END 2024-05-31 15:21 | disposition home or self-care (01) ==
PROVIDERS: PCP Internal Medicine; Visit Provider Internal Medicine
DX: E11.69 Type 2 diabetes mellitus with other specified complication (principal); Z79.4 Long term (current) use of insulin; F33.0 Major depressive disorder, recurrent, mild; E21.3 Hyperparathyroidism, unspecified; E11.65 Type 2 diabetes mellitus with hyperglycemia; G25.2 Other specified forms of tremor; I10 Essential (primary) hypertension; E78.5 Hyperlipidemia, unspecified; F41.9 Anxiety disorder, unspecified

== ENCOUNTER → 2024-05-31 14:46 | Outpatient (BNVA) | payer MEDICARE, OTHER, SELFPAY | PROVIDERS: PCP Internal Medicine; Visit Provider Internal Medicine | DX: G25.2 Other specified forms of tremor (principal); E11.69 Type 2 diabetes mellitus with other specified complication; Z79.4 Long term (current) use of insulin; I10 Essential (primary) hypertension; E78.5 Hyperlipidemia, unspecified; F41.9 Anxiety disorder, unspecified; F33.0 Major depressive disorder, recurrent, mild; E21.3 Hyperparathyroidism, unspecified | CPT/HCPCS: 83036; 96127; 99212 ==

== ENCOUNTER 2024-08-14 14:10 | Outpatient (AMB) | payer MEDICARE, OTHER, SELFPAY ==
--- NOTE | 2024-08-14 14:12 | A.OFFPC_ITS ---
Vital Signs 08/14/24 14:18 Height 5 ft 6 in Weight 177 lb BMI 28.6 BP 130/78 Blood Pressure Location Lt brachial Position Sitting Intake Visit Reasons: FOLLOW UP Biomedical Equipment Specialist Required: Yes Biomedical Equipment Specialist Language: Boarding Room Fixer Name: Zaria Page MD Information Interpreted: non-clinical & clinical Accompanied by: Daughter Allergies No Known Allergies Allergy (Verified 08/14/24 14:36) Medication List - Last Reconciled 08/14/24 by Zaria Page MD ascorbic acid (vitamin C) (Vitamin C) 500 mg PO DAILY aspirin 81 mg PO DAILY 30 days baclofen 10 mg PO TID 30 days blood sugar diagnostic As directed blood sugar diagnostic (OneTouch Verio test strips) 3 times a day [diabetic shoes As directed] gabapentin 200 mg (2 x 100 mg) PO BEDTIME insulin aspart (niacinamide) 100 unit/mL (3 mL) (Fiasp FlexTouch U-100 Insulin) 1 - 25 sliding scale doses subcut TID 30 days insulin degludec (Tresiba FlexTouch U-100 insulin) 33 units (0.33 mL) subcut DAILY 30 days isosorbide mononitrate ER 60 mg PO DAILY lancets As directed lancets (OneTouch Delica Lancets) 3 times a day lisinopril 40 mg PO DAILY multivitamin 1 tab PO DAILY omega-3 fatty acids-fish oil 340-1,000 mg 1 cap PO DAILY omeprazole 20 mg PO DAILY 90 days pen needle, diabetic 5 times a day pravastatin 80 mg PO BEDTIME 90 days sertraline 50 mg PO DAILY tirzepatide 5 mg (0.5 mL) subcut QWEEK 4 weeks vitamin B complex 1 tab PO DAILY Tobacco use date assessed: 08/14/24 Fall risk assessment: No Falls in past year Last assessed Fall Risk: 08/14/24 Dental Screening Dental Screen Date: 05/31/24 Did you have a dental visit in the last 12 months?: No Did you have a dental problem in the last 6 months where you did not have access to dental care?: No Was dental information given to patient?: Patient has dentist HPI HPI Comments History of Present Illness Details The patient is a 78-year-old male presenting with concerns over fluctuating blood glucose levels related to his Type 2 Diabetes Mellitus. He reports fasting glucose levels in the 90s, yet experiences sudden elevations to over 200 mg/dL during the day without consuming food. There is also noted low glucose readings with hypoglycemic unawareness. His diabetes management includes Tresiba and a recent restart of Mounjaro after a gap. Stress and dietary patterns have been implicated in the variability of his glucose levels. He also has tremors and auditory hallucinations and daughter wants him to see Neurology again. 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 Mother Diabetes Social History Housing: Apartment Alcohol intake: never Patient Tobacco Use Status: Never used Tobacco e-Cigarette/Vaping Use: Never Used Second Hand Smoke Exposure: No service: No Current occupational status: disabled Cognitive needs: No Hearing needs: No Vision needs: Yes Questionnaire PHQ-9 Over the last 2 weeks, how often have you been bothered by any of the following problems? 1. Little interest or pleasure in doing things: several days 2. Feeling down, depressed, or hopeless: not at all 3. Trouble falling or staying asleep, or sleeping too much: not at all 4. Feeling tired or having little energy: not at all 5. Poor appetite or overeating: not at all 6. Feeling bad about yourself - or that you are a failure or have let yourself or your family down: not at all 7. Trouble concentrating on things, such as reading the newspaper or watching television: several days 8. Moving or speaking so slowly that other people could have noticed. Or the opposite - being so fidgety or restless that you have been moving around a lot more than usual: not at all 9. Thoughts that you would be better off or of hurting yourself in some way: not at all Total score: 2 Depression Screening Interpretation: Negative Depression Screening Done: Yes 83126 - PHQ-9 Billing: Yes Source: Developed by Drs. Marty Bellamy, Sahra Walker, Bryan Jamison and colleagues, with an educational nahomi from [employer]. Thrive Questionnaire Date Thrive assessed: 08/14/24 I am a: Patient What is your living situation today?: I have a steady place to live Within the past 12 months, did the food you bought not last and you didn't have the money to get more?: Never true Within the past 12 months, did you worry whether your food would run out before you got money to buy more?: Never true Do you have trouble paying for medicines?: No Do you have trouble getting transportation to medical appointments?: No Do you have trouble paying your heating and electricity bill?: No Do you have trouble taking care of your child, family member or friend?: No Do you have trouble with day-to-day activities such as bathing, preparing meals, shopping, managing finances, etc.?: No Are you currently unemployed and looking for a job?: No Are you interested in more education?: No Please select the resources that you would like help with: None Currently or been in a relationship where the following occur: No concerns reported THRIVE Score: 0 AUDIT C Alcohol Use Questionnaire (AUDIT-C) 1. How often do you have a drink containing alcohol?: Never Total Score: 0 Score Reviewed/Action Taken: No RAVI-7 AMB Questionnaire RAVI-7 Date RAVI - 7 assessed: 05/31/24 Source: Developed by Drs. Marty Bellamy, Sahra Walker, Bryan Jamison and colleagues, with an educational nahomi from [employer]. Review of Systems Const All systems reviewed & are unremarkable except as noted in HPI and below Card Denies chest pain at rest, Denies chest pain with activity, Denies edema, Denies irregular heart rhythm, Denies claudication, Denies dyspnea, Denies dyspnea on exertion, Denies orthopnea, Denies paroxysmal nocturnal dyspnea and Denies slow heart rate Resp Denies cough, Denies dyspnea and Denies dyspnea on exertion Physical exam (Primary Care) Vital Signs: Last Vital Signs BP 130/78 08/14/24 14:18 BMI result Body Mass Index 28.6 Tobacco/Smoking Status: Tobacco use Status Tobacco use date assessed 08/14/24 08/14/24 14:16 Patient Tobacco Use Status Never used Tobacco 08/14/24 14:16 e-Cigarette/Vaping Use Never Used 08/14/24 14:16 PHQ-9: PHQ-9 Score PHQ-9: Total score 2 08/14/24 15:37 Depression Screening Interpretation: Negative Thrive Assessment: Date of Thrive Assessment Date Thrive assessed 08/14/24 08/14/24 14:16 Currently or been in a relationship where the following occur: No concerns re ported Resp Effort & Inspection: normal respiratory effort Auscultation: clear to auscultation bilaterally Cardio Jugular venous distension: no JVD Rate: regular rate Rhythm: regular rhythm Heart sounds: S1 normal heart sound present and S2 normal heart sound present Extrem General: Yes full ROM Coding Level of Care Code Est Pt Level 4 (59978) Complex EM visit Add On G2211 Diagnoses Type 2 diabetes mellitus with other specified complication, with long-term current use of insulin E11.69; Z79.4 Diabetes mellitus type: type 2 Diabetes mellitus roasterman insulin use: with roasterman use Diabetes mellitus complication status: with other specified complication [facility] (current) use of insulin Z79.4 Essential hypertension I10 Hypertension type: essential hypertension Dyslipidemia E78.5 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 Coarse tremors G25.2 Additional Codes PHQ-9 - 42067 - PHQ-9 Billing: Yes ([id number]) Time Spent (min) 29 Assessment & Plan Assessment & Plan (1) Diabetes mellitus: Code(s): E11.9 - Type 2 diabetes mellitus without complications Category: Medical Qualifiers: Diabetes mellitus type: type 2 Diabetes mellitus skilled nursing insulin use: with skilled nursing use Diabetes mellitus complication status: with other specified complication Qualified Code(s): E11.69 - Type 2 diabetes mellitus with other specified complication; Z79.4 - 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 (2) 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: Code(s): Z79.4 - [facility] (current) use of insulin Category: Medical (3) Hypertension: Code(s): I10 - Essential (primary) hypertension Category: Medical Qualifiers: Hypertension type: essential hypertension Qualified Code(s): I10 - Essential (primary) hypertension (4) Dyslipidemia: Code(s): E78.5 - Hyperlipidemia, unspecified Category: Medical (5) Mild recurrent major depression: Code(s): F33.0 - Major depressive disorder, recurrent, mild Category: Medical (6) Coarse tremors: Code(s): G25.2 - Other specified forms of tremor Category: Medical Plan To manage the fluctuating glucose levels, I advised reducing Tresiba to 32 units. Mounjaro will be maintained at 5 mg with sufficient refills to avoid future gaps. I also addressed diet and suggested managing stress, considering its effect on glucose. Further lab tests are scheduled in September to monitor progress, and omeprazole has been discontinued due to lack of symptoms. Patient was informed and verbally consented to the use of an ambient scribe for clinic note documentation during this visit. During our discussion, I emphasized the importance of maintaining a stable diabetes regimen, addressing fluctuations in glucose levels by adjusting Tresiba insulin to 32 units to reduce hypoglycemia risk. The stability provided by Mounjaro at 5 mg, alongside continued dietary management through the nutritional program, was highlighted. We discussed discontinuing omeprazole due to a lack of symptoms and agreed to regular monitoring with scheduled lab tests. I encouraged the patient to manage stress, which affects glucose levels, and provided consent for the current medication adjustments. Orders: Orders Lipid Panel Today E78.5 - Hyperlipidemia, unspecified Microalbumin, Random (w Creat) Today R80.9 - Proteinuria, unspecified Comprehensive [place]. Panel Fast Today E11.69 - Type 2 diabetes mellitus with other specified complication, Z79.4 - [facility] (current) use of insulin Referrals Neurology Referral G25.2 - Other specified forms of tremor Medications: Changed From insulin degludec (Tresiba FlexTouch U-100 insulin) 33 units (0.33 mL) subcut DAILY 30 days 9.9 mL 3RF E11.65 - Type 2 diabetes mellitus with hyperglycemia To insulin degludec (Tresiba FlexTouch U-100 insulin) 32 units (0.32 mL) subcut DAILY 9.6 mL 5RF 30 days E11.65 - Type 2 diabetes mellitus with hyperglycemia From insulin aspart (niacinamide) 100 unit/mL (3 mL) (Fiasp FlexTouch U-100 Insulin) 1 - 25 sliding scale doses subcut TID 30 days 45 mL 11RF E11.65 - Type 2 diabetes mellitus with hyperglycemia To insulin aspart (niacinamide) 100 unit/mL (3 mL) (Fiasp FlexTouch U-100 Insulin) 10 units subcut TID 45 mL 11RF 30 days E11.65 - Type 2 diabetes mellitus with hyperglycemia Refilled insulin aspart (niacinamide) 100 unit/mL (3 mL) (Fiasp FlexTouch U-100 Insulin) 1 - 25 sliding scale doses subcut TID 30 days 45 mL 11RF E11.65 - Type 2 diabetes mellitus with hyperglycemia pravastatin 80 mg PO BEDTIME 90 tabs 1RF 90 days E78.5 - Hyperlipidemia, unspecified gabapentin 200 mg (2 x 100 mg) PO BEDTIME 180 caps 3RF aspirin 81 mg PO DAILY 30 tabs 11RF 30 days Z79.82 - [facility] (current) use of aspirin tirzepatide 5 mg (0.5 mL) subcut QWEEK 2 mL 6RF 4 weeks E11.65 - Type 2 diabetes mellitus with hyperglycemia, Z79.4 - 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 - Continue taking Mounjaro at 5 mg, with provided refills. - Follow dietary guidelines provided by the nutritional program. - Monitor blood glucose levels regularly. - Keep notes of stress and its effects on glucose levels. - Stop taking omeprazole as no symptoms are present. - Attend scheduled lab tests and follow-up appointment in September. - Seek medical attention if experiencing significant changes in health or new symptoms.
[2024-08-14 14:18] VITALS: BP 130/78; BMI 28.6
--- OUTSIDE RECORDS SUMMARY | 2024-08-14 14:19 | XMS_ITS ---
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 Name Role Phone Elizabeth GARRISON, aZria Primary Care Provider Unavail able Marquise Kumar Unavailable [phone] Allergies Allergen (clinical drug ingredient) Drug/Non Drug Allergy documented on EMR Reaction Allergy Type Onset Date Status Shrimp Flavor swelling, itch Drug Allergy Active Shellfish (FN) Shellfish-derived Products swelling, itch Drug Allergy Active REASON FOR VISIT At Risk Footcare, Toe Irritation Medications Medication SIG (Take, Route, Frequency, Duration) Notes Start Date End Date Status Extra Depth Orthopedic Shoes (1 Pair) with Customized Heat Molded Multidensity Innersoles (3 Pair) as directed Dx: IDDM/Polyneuropathy (E10.42), Hammertoe Foot Deformity (M20.41,M20.42), Preulcerative Skin Lesion(s) (L85.1) Active Toujeo SoloStar Acti ve Tylenol Active Ciclopirox Olamine 0.77 % 1 application Externally Twice a day for 30 days Active Vit Balanced B-100 A ctive Isola-3 Active Multivitamins Active Pravastatin Sodium A ctive Plavix Active Trulicity Active Lisinopril 40 MG Orally Act samara Isosorbide Mononitrate Active Fish Oil Active HumaLOG Active Gabapentin Active Baby Aspirin Active Benicar Active Social History Tobacco Use: Social History Observation Description Date Details (start date - stop date) Never Smoker NA - NA Tobacco use other than smoking: Question Answer Notes Are you an other tobacco user? No Tobacco Control (Standard) Question Answer Notes Tobacco use: Nonsmoker Additional Findings: Tobacco non-user Current no nsmoker AUDIT-C (Standard) Question Answer Notes Did you have a drink containing alcohol in the p ast year? No Points 0 Interpretation Negative Vital Signs Height 5 ft 6 in in 07/04/2024 Weight 175 lbs 07/04/2024 BMI 28.24 kg/m2 07/04/2024 Blood pressure systolic 120 mm Hg 07/05/19 25 Blood pressure diastolic 60 mm Hg 025 Procedures Procedure Date Ordered Date Performed Result Body Sit e 99189-VYHIOLI NAIL, 6 OR MORE 07/04/2024 N/A 13242-CGVI SKIN LESIONS, OVER 4 07/04/2024 N/A Encounters Encounter Location Date Provider Diagnosis [facility] [address] [place] [address] 07/04/2024 Marquise Kumar Type 1 diabetes mellitus with diabetic polyneuropathy E10.42 ; Tinea unguium B35.1 ; Other hammer toe(s) (acquired), right foot M20.41 and Other hammer toe(s) (acquired), left foot M20.42 Assessments Encounter Date Diagnosis (ICD Code) Assessment Notes Treatment Notes Treatment Clinical Notes Section Notes 07/04/2024 Type 1 diabetes mellitus with diabetic polyneuropathy (ICD-10 - E10.42) 07/04/2024 Tinea unguium (ICD-10 - B35.1) 07/04/2024 Other hammer toe(s) (acquired), right foot (ICD-10 - M20.41) Patient Educated with: DIABETIC FOOT CARE INSTRUCTIONS. pdf (DIABETIC FOOT CARE INSTRUCTIONS. pdf) 07/04/2024 Other hammer toe(s) (acquired), left foot (ICD-10 - M20.42) Plan Of Treatment Medication Medication Name Sig Start Date Stop Date Notes Extra Depth Orthopedic Shoes (1 Pair) with Customized Heat Molded Multidensity Innersoles (3 Pair) as directed Dx: IDDM/Polyneuropathy (E10.42), Hammertoe Foot Deformity (M20.41,M20.42), Preulcerative Skin Lesion(s) (L85.1) Treatment Notes Assessment Notes Other hammer toe(s) (acquired), right fo ot Patient Educated with: DIABETIC FOOT CARE INSTRUCTIONS.pdf (DIABETIC FOOT CARE INSTRUCTIONS.pdf) Pending Test Test Name Order Date 25022-TIKZWIX NAIL, 6 OR MORE 07/04/2024 20945-VVSF SKIN LESIONS, OVER 4 07/05/19 25 Next Appt Details Follow Up: prn, Reason: Provider Name:Marquise Kumar , 10/10/2024 03:15:00 PM, [address] [place], [address], Procedure Notes * Category Sub-Category Detail Notes [...] T3, T4, T5, T6, T7, T8, T9 ), was performed exclusively by the physician of record to reduce/remove overall nail length, girth, thickness, subungual debris, and necrotic tissue, by manual and/or electrical means through the use of a nail nipper and/or dremel-type cutter grinder operator, to a more viable healthy nail plate [...] to maintain effectiveness in symptomatic relief - 71785 Keratoma Treatment Parring or Cutting o f [...] risk. 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 * ROS:?General/Constitutional:?Nausea?denies.?Vomiting?denies.?Hunger Thirst?denies.?Loss appetite?denies.?Chills?denies.?Fatigue?denies.?Fever?denies.?Night Sweats?denies.?Unexplained weight loss?denies.?Ophthalmologic:?Blurred [...] stent insertion 2008 * Hospitalization/Major Diagno stic Procedure:[place] [place] 01/28/24 * Family History:?Mother: dece ased, diagnosed with Diabetic - NIDDM, Family history of arthritis.?Father: , diagnosed with Unspecified heart disease.?Siblings: heart attack, stroke.?2 son(s) , 1 daughter(s) . .? * Social History:?Tobacco Use:?Tobacco use other than smoking?Are you an other tobacco user??No ?Tobacco Control (Standard)?Tobacco use:?Nonsmoker ?Additional Findings: Tobacco non-user?Current nonsmoker ???Drugs/Alcohol:?Drugs?Have you used drugs other than those for medical reasons in the past 12 months??No ???Drug/Alcohol:?AUDIT-C (Standard)?Did you have a drink containing alcohol in the past year??No ?Points?0 ?Interpretation?Negative * Medications:?TakingBaby Aspi rin Benicar Fish Oil Gabapentin HumaLOG Isosorbide Mononitrate Lisinopril 40 MG Tablet Orally Multivitamins Isola-3 Plavix Pravastatin Sodium Trulicity Toujeo SoloStar Tylenol [...] 40 MG Tablet Orally Taking Multivitamins Taking Isola-3 Taking Plavix Taking Pravastatin Sodium Taking Trulicity [...] in, Wt:17 5, BMI: 28.24, Shoe size:9, BP:120/60mm Hg, BS:89, Wt-k.38 kg. * ???Past Orders: ???Lab:HEMOGLOBIN A1C (GLYCO HEMOGLOBIN) (Order Date - 01/17/2024) (Collection Date & Time - 01/17/2024 09:18 AM) ? Value Reference Range ?TOTAL HEMOGLOBIN (HGBA1C) 6.4 * Examination: ???Ophthalmology Referral: ?DIABETES EYE EXAM?Procedure Performed:?Yes ?Date of Exam Performed?06/12/2024 ?Diabetic Retinopathy Screening:?Yes ?Retinal Screening Performed:?Yes ?Findings of Diabetic Eye Exam:?no retinopathy?Neurological: ?SENSORY:?Neurological [...] (s), 1, B/L , Plantar, Heel(s) , B/L?.?Orthopedic: ?MUSCLE STRENGTH:?5/5 all groups in a symmetrical fashion , B/L.?FOOT MORPHOLOGY:?Pes Planus structure, No Charcot collapse/destruction noted at [facility].?DIGITAL DEFORMITIES:?Digital contracture, PIPJ, 2-5 B/L, incompl-reducible to push-up test, no over, nor underlapping , with evidence of shoe producing skin irritation.?FOOTWEAR EVALUATION:?worn, OT were inspected and noted to be severely worn , in poor condition not giving proper support at the present time , shoe gear properties exacerbate patients foot/toe deformity.?Vascular: ?DP PULSES (B):?1/, B/L.?PT PULSES (B):?04/01, B/L.?CAPILLARY FILL TIME:?3 secs. per digit, B/L.?TROPHIC CONDITION-TEXTURE/ELASTICITY/TURGOR/HAIR GROWTH (B):?normal, B/L.?TEMPERTURE GRADIENT (C):?warm to cool, proximal to distal, B/L.?PIGMENTATION:?mottled, B/L.?EDEMA (C):?absent, B/L.?General Examination: ?GENERAL APPEARANCE:?Reveals a pleasant, alert, well nourished, well developed, well hydrated individual, who demonstrates proper attention to hygiene/body habitus, and is in no acute distress , Pt serves as own historian for office visit today.?ORIENTED:?person, place, and time.?FOOT EXAM:?Lower Extremity Neurological Exam performed:?Yes ?Visual exam of foot performed:?Yes ?Date?07/04/2024 ?Footwear Evaluation?Footwear Evaluation performed:?Yes??? Assessment: * Assessment: 1.?Type 1 diabetes mellitus with diabetic polyneuropathy - E10.42 (Primary)???2.?Tinea unguium - B35.1???3.?Other hammer toe(s) (acquired), right foot - M20.41???Specify :Chronic problem, Worse (4),Rx Management (4)???4.?Other hammer toe(s) (acquired), left foot - M20.42???Specify :Chronic problem, Worse (4),Rx Management (4)??? Plan: * Treatment: 2.?Other hammer toe(s) (acqu ired), right foot? Start Extra Depth Orthopedic Shoes (1 Pair) with Customized Heat Molded Multidensity Innersoles (3 Pair), as directed, Dx: IDDM/Polyneuropathy (E10.42), Hammertoe Foot Deformity (M20.41,M20.42), Preulcerative Skin Lesion(s) (L85.1), 1, Refills 0.?? Notes: Patient Educated with: DIABETIC FOOT CARE INSTRUCTIONS.pdf (DIABETIC FOOT CARE INSTRUCTIONS.pdf)?? * Procedures:?Debride Nail 6-10:?Nail debridement?Due to the clinical pathology outlined in the exam findings, performance of this nail treatment is medically necessary as its management by an unskilled/untrained nonprofessional would put this patients foot and overall health at risk. Therefore, debridement to affected nail(s), as described in exam ( TA, T1, T2, T3, T4, T5, T6, T7, T8, T9 ), was performed exclusively by the physician of record to reduce/remove overall nail length, girth, thickness, subungual debris, and necrotic tissue, by manual and/or electrical means through the use of a nail nipper and/or dremel-type cutter grinder operator, to a more viable healthy nail plate [...] to maintain effectiveness in symptomatic relief - 54082.?Keratoma Treatment:?Parring or Cutting of Benign Hyperkeratotic Lesion(s)?(-57) More than 4 Lesions - Due to the at risk nature of the patients medical condition as documented in the exam findings, performance of this keratoderma treatment is medically necessary as its management by an unskilled/untrained nonprofessional would put this patients foot and overall health at risk. Therefore, the benign hyperkeratotic lesions, ( 7) in total, locations as stated and described in the exam ( Plantar, IPJ, TA, Medial plantar, IPJ, T5, Dorsal, PIPJ, T9, SUB MTH (s), 1, B/L , Plantar, Heel(s) , B/L ), were pared, and/or cut utilizing a sterile 15 blade, tissue nippers, and/or power dremel instrumentation by the physician of record - 89425.? * Procedure Codes:?57537 DEBRI DE NAIL, 6 OR MORE, Modifiers: XS 38496 TRIM SKIN LESIONS, OVER 4, Modifiers: XS * Preventive Medicine:? ??Counseling:?Discussion:?-14: Office or other outpatient visit for the evaluation and management of an established patient, which required a medically appropriate history and/or examination and MODERATE level of DECISION MAKING for: 1 OR MORE CHRONIC PROBLEM(S) THATS WORSENING, 2 STABLE CHRONIC PROBLEMS, A NEWLY DIAGNOSED PROBLEM WITH UNCERTAIN PROGNOSIS, AN ACUTE COMPLICATED INJURY WITH MULTIPLE TREATMENT OPTIONS, OR AN ACUTE PROBLEM WITH ACCOMPANYING SYSTEMIC SYMPTOMS, THAT POSE(S) A MODERATE RISK OF MORBIDITY. THIS CONDITION MAY ALSO INCLUDE RX DRUG MANAGEMENT, OR A DECISON FOR MINOR SURGERY. The visit on the day of the [...] have encouraged the patient to call the office.?Diabetic Footcare:?The patient was advised against future self nail/callus care due to inherent risks for infection, loss of limb/life given diabetes, neuropathy.?Digital Surgery:?Digital surgery was discussed with the patient, We elected to try conservative treatment at the present time, due to the patients medical history and increased asssociated post-operative risks.?Digital Treatment:?HT- I explained to the patient the possible etiologies of Hammertoes, including genetics/foot type/shoegear/activity level/exercise routine and the risks/benefits of all the different treatment options for their pain including: No treatment at all, Rest, Ice, New/supportive/wider/deeper Shoegear, Digital Padding/Strapping/Taping/Bracing/Gel protective sleeves, Foot/Ankle AFO Bracing, Stretching exercises, Deep Tissue Massage, Arch support/shoe inserts with splay metatarsal padding, and Custom orthoses. I insisted that any digital devices be removed daily and not worn overnight for safety. The patient is to carefully examine the toes daily for any skin irritation while using any splinting or padding device. The advantages and disadvantages of each option were discussed and the patients questions re: shoegear, padding, custom vs prefabricated inserts, activity level, and consistency in home treatment regimens for optimal success were answered to their verbally confirmed satisfaction.?Shoe Gear Counseling:?SHOE Rx - The patient was counseled in great detail on their muscoloskeletal foot and toe deformities which coincided with the dermatological presentations visualized on exam. We discussed how their deformities put the integrity of their feet at risk for potential pedal complications which makes the accomidative diabetic shoes and cutomizable inserts medically necessary. We discussed the different shoe and insert treatment types and options, as well as the important advantages for adhering to regularly wearing these accomidative devices daily. The patient was made aware of the fact that a failure to abide by these recommedations may be deleterious to their foot health as they are able to prevent many pedal complications such as skin irritation, skin ulceration, infection, and even loss of toe/foot/leg/or life. Time was also spent with the patient dispensing and discussing proper diabetic footcare techniques including daily skin moisturization, daily foot inspection for any interruption in skin integrity including open lesions, or sign of infection such as redness/malodor/drainage/swelling. Also discussed and recommended were procedures regarding daily shoe inspection for the presence of internal foreign bodies as well as any visualized irregular shoe or insert wear. Patient questions re: shoes, inserts, and self foot inspections were answered to their satisfaction as the patient verbally confirmed a full understanding of the above information. A Rx for Extra Depth Orthopedic Shoes with 3 pair of custom heat-molded inserts was dispensed.? ??Screening/Special Tests:?Fall Risk?Screening:?No falls in the past year Despite related balance issues/unsteady gate, Despite neuropathy ?FALLS: Screening for Future Fall Risk?Have you had any falls with injury in the past year??No Despite related balance issues/unsteady gate, Despite neuropathy * Follow Up:?prn * Images: * Sign off status: Completed true * Provider:Zak Kumar DPM Date:?2024 Generated for Ileana ambriz/Jose Manuel/Luna on:?08/14/2024 02:19 PM EDT History and Physical Notes * HPI (History of Present Illness) Category Sub-Category Detail Notes Category Not es Toe pain Location: B/L feet Duration: several years Course: worse Aggravated by: shoes, any pressure Treatments: change in shoes At Risk footcare Pt States Last PCP Visit: Date: 5 Examination Category Sub-Category Detail Notes Category Not [...] 1, B/L , Plantar, Heel(s) , B/L Orthopedic FOOT MORPHOLOGY: Pes Planus stru cture, No Charcot collapse/destruction noted at [facility] FOOTWEAR EVALUATION: worn, OT were inspe cted and noted to be severely worn , in poor condition not giving proper support at the present time , shoe gear properties exacerbate patients foot/toe deformity DIGITAL DEFORMITIES: Digital contracture , PIPJ, 2-5 B/L, incompl-reducible to push-up test, no over, nor underlapping , with evidence of shoe producing skin irritation MUSCLE STRENGTH: 5/5 all groups in a symmetrical fashion , B/L General Examination GENERAL APPEARANCE: Reveals a pleasant, alert, well nourished, well developed, well hydrated individual, who demonstrates proper attention to hygiene/body habitus, and is in no acute distress , Pt serves as own historian for office visit today FOOT EXAM: Lower Extremity Neurological Exa m performed:: Yes Visual exam of foot performed:: Yes Date: 07/04/2024 ORIENTED: person, place, and t ruben Footwear Evaluation Footwear Evaluation performe d:: Yes Ophthalmology Referral DIABETES EYE EXAM Procedure Perform ed:: Yes ?Date of Exam Performed: 06/12/2024 Diabetic Retinopathy Screening:: Yes Retinal Screening Performed:: Yes Findings of Diabetic Eye Exam:: no retin opathy Vascular DP PULSES (B): 1/4, B/L PT PULSES (B): 1/4, B/L CAPILLARY FILL TIME: 3 secs. per digit, B/L TEMPERTURE GRADIENT (C): warm to cool, p roximal to distal, B/L TROPHIC CONDITION-TEXTURE/ELASTICITY/TURGOR/HAIR GROWTH (B): normal, B/L EDEMA (C): absent, B/L PIGMENTATION: mottled, B/L Nails NAILS are: Elongated, overg rown, dystrophic, lytic, greater than 3mm thick, discolored and friable with crumbly malodorous subungual debris, TA, T1, T2, T3, T4, T5, T6, T7, T8, T9
--- OUTSIDE RECORDS SUMMARY | 2024-08-14 14:19 | XMS_ITS | Patient Health Record ---
Author Organization [facility] Address [address] [place] [address] Care Team Providers Care Client Relations Associate Name Role Phone Elizabeth GARRISON, Zaria Primary Care Provider Unavail able Marquise Kumar Unavailable [phone] Allergies Allergen (clinical drug ingredient) Drug/Non Drug [...] Duration) Notes Start Date End Date Status Lisinopril 40 MG Orally Act samara Extra Depth Orthopedic Shoes (1 Pair) with Customized Heat Molded Multidensity Innersoles (3 Pair) as directed Dx: IDDM/Polyneuropathy (E10.42), Hammertoe Foot Deformity (M20.41,M20.42), Preulcerative Skin Lesion(s) (L85.1) Active Isosorbide Mononitrate Active Viola-3 Active Multivitamins Active Pravastatin Sodium A ctive Plavix Active Toujeo SoloStar Acti ve Trulicity Active Tylenol Active Baby Aspirin Active Fish Oil Active Benicar Active HumaLOG Active Ciclopirox Olamine 0.77 % 1 application Externally Twice a day for 30 days Active Gabapentin Active Vit Balanced B-100 A ctive Immunizations Vaccine Route Administration Date Status Comme [...] ast year? No Points 0 Interpretation Negative Problems Problem Type SNOMED Code ICD Code Onset Dates Problem Status W/U Status Risk Notes Problem Acquired hammer toe of right foot (1915872503914511 ) Other hammer toe(s) (acquired), right foot (M20.41) Active confirmed Response to treatment, Improvemen t Problem Acquired hammer toe of left foot (1197303331385290 ) Other hammer toe(s) (acquired), left foot (M20.42) Active confirmed Response to treatment, Improvemen t Problem Polyneuropathy due to diabetes mellitus type I (536137262) Type 1 diabetes mellitus with diabetic polyneuropathy (E10.42) Active confirmed Vital Signs Blood pressure diastolic 60 mm Hg 07/04/2024 Height 5 ft 6 in in 07/04/2024 Blood pressure systolic 120 mm Hg 07/04/2024 Weight 175 lbs 07/04/2024 BMI 28.24 kg/m2 07/04/2024 Procedures Procedure Date Ordered Date Performed Result Body Sit e 12955-KBWQVLZ NAIL, 6 OR MORE 10/05/2023 N/A 51276-IOJT SKIN LESIONS, OVER 4 10/05/2023 N/A 14270-MFWQMZO NAIL, 6 OR MORE 12/28/2023 N/A 40376-YFWQ SKIN LESIONS, OVER 4 12/28/2023 N/A 66217-XZFOCGF SKIN/TISSUE 02/01/2024 N/A 64845- Debride <25 sq cm 02/22/2024 N/A 25467-LNJKTAZ NAIL, 6 OR MORE 04/04/2024 N/A 05481-PYJX SKIN LESIONS, OVER 4 04/04/2024 N/A 32858-ZJYJJFV NAIL, 6 OR MORE 07/04/2024 N/A 88954-TLVA SKIN LESIONS, OVER 4 07/04/2024 N/A Encounters Encounter Location Date Provider Diagnosis [address] [address] 10/05/2023 Marquise Kumar Type 1 diabetes mellitus with diabetic polyneuropathy E10.42 ; Onychomycosis B35.1 and Tinea pedis of both feet B35.[address] [address] 12/28/2023 Marquiseclovis Kumar Type 1 diabetes mellitus with diabetic polyneuropathy E10.42 ; Tinea unguium B35.1 ; Other hammer toe(s) (acquired), right foot M20.41 ; Other hammer toe(s) (acquired), left foot M20.42 and Tinea pedis of both feet B35.[address] [address] 02/01/2024 Marquise Kumar Skin ulcer of toe of left foot with fat layer exposed L97.522 ; Cellulitis of toe of left foot L03.032 and Type 1 diabetes mellitus with diabetic polyneuropathy E10.[address] [address] 02/22/2024 Marquise Kumar Cellulitis of toe of left foot L03.032 ; Skin ulcer of toe of left foot, limited to breakdown of skin L97.521 and Type 1 diabetes mellitus with diabetic polyneuropathy E10.[address] [address] 04/04/2024 Marquise Kumar Type 1 diabetes mellitus with diabetic polyneuropathy E10.42 ; Skin ulcer of toe of left foot, limited to breakdown of skin L97.521 and Tinea unguium B35.[address] [address] 07/04/2024 Marquise Kumar Type 1 diabetes mellitus with diabetic polyneuropathy E10.42 ; Tinea unguium B35.1 ; Other hammer toe(s) (acquired), right foot M20.41 and Other hammer toe(s) (acquired), left foot M20.42 [facility] [address] [address] 10/05/2023 Marquise Kumar [facility] [address] [address] 02/01/2024 Marquise Kumar Assessments Encounter Date Diagnosis (ICD Code) Assessment Notes Treatment Notes Treatment Clinical Notes Section Notes 10/05/2023 Type 1 diabetes mellitus with diabetic [...] (ICD-10 - L97.521) Response to treatment Improvement 07/04/2024 Type 1 diabetes mellitus with diabetic polyneuropathy (ICD-10 - E10.42) 07/04/2024 Tinea unguium (ICD-10 - B35.1) 02/01/2024 Type 1 diabetes mellitus with diabetic polyneuropathy (ICD-10 - E10.42) 07/04/2024 Other hammer toe(s) (acquired), right foot (ICD-10 - M20.41) Patient Educated with: DIABETIC FOOT CARE INSTRUCTIONS. pdf (DIABETIC FOOT CARE INSTRUCTIONS. pdf) 02/22/2024 Type 1 diabetes mellitus with diabetic polyneuropathy (ICD-10 - E10.42) 04/04/2024 Tinea unguium (ICD-10 - B35.1) 10/05/2023 Tinea pedis of both feet (ICD-10 - B35.3) 12/28/2023 Other hammer toe(s) (acquired), right foot (ICD-10 - M20.41) Patient Educated with: DIABETIC FOOT CARE INSTRUCTIONS. pdf (DIABETIC FOOT CARE INSTRUCTIONS. pdf) 12/28/2023 Other hammer toe(s) (acquired), left foot (ICD-10 - M20.42) 07/04/2024 Other hammer toe(s) (acquired), left foot (ICD-10 - M20.42) 12/28/2023 Tinea pedis of both feet (ICD-10 - B35.3) 02/01/2024 Other 02/22/2024 Other Plan Of Treatment Pending Test Test Name Order Date Hemoglobin A1c 03/05/2015 44166-XPJUCCO NAIL, 6 OR MORE 03/05/2015 62598-XTGLUWR NAIL, 6 OR MORE 06/04/2015 18602-ITOCBWL NAIL, 6 OR MORE 12/04/2014 38447-EGLZKXJ NAIL, 6 OR MORE 11/07/2013 14613-GSLPHDD NAIL, 6 OR MORE 02/13/2014 93401-SMVJEFB NAIL, 6 OR MORE 05/25/2014 24656-USHEGAD NAIL, 6 OR MORE 08/24/2014 05980-GYFDZPI NAIL, 6 OR MORE 02/16/2012 33456-XQCQAEJ NAIL, 6 OR MORE 05/03/2012 01898-GPUCUUY NAIL, 6 OR MORE 08/02/2012 66522-IKTODKG NAIL, 6 OR MORE 11/11/2012 20862-NLARFZR NAIL, 6 OR MORE 02/14/2013 45082-ASCJGJK NAIL, 6 OR MORE 05/23/2013 13421-XZNEHCO NAIL, 6 OR MORE 08/22/2013 85044-OJUBERP NAIL, 6 OR MORE 09/03/2015 68237-YFVPICC NAIL, 6 OR MORE 12/03/2015 69056-YEWSXAH NAIL, 6 OR MORE 03/03/2016 80575-GHGWVGW NAIL, 6 OR MORE 06/02/2016 94070-EPNSYLZ NAIL, 6 OR MORE 09/01/2016 83022-GXRONVR NAIL, 6 OR MORE 12/04/2016 07381-PDQCRLN NAIL, 6 OR MORE 03/09/2017 62039-WKHJJJI NAIL, 6 OR MORE 06/15/2017 76468-BSYJCPM NAIL, 6 OR MORE 09/14/2017 19164-JSNQDCM NAIL, 6 OR MORE 12/21/2017 35770-XALTODO NAIL, 6 OR MORE 04/05/2018 01192-QNSSFRC NAIL, 6 OR MORE 07/05/2018 64762-QTEPGBW NAIL, 6 OR MORE 10/11/2018 45972-OLJKFOH NAIL, 6 OR MORE 01/10/2019 98909-ZIUNMHE NAIL, 6 OR MORE 04/18/2019 77272-PUWIDLC NAIL, 6 OR MORE 07/21/2019 05579-FFRHQNV NAIL, 6 OR MORE 11/21/2019 53655-KGSQNSG NAIL, 6 OR MORE 02/27/2020 65371-KTJWWGL NAIL, 6 OR MORE 06/25/2020 73175-WFKNPOG NAIL, 6 OR MORE 10/01/2020 90630-SYBPRPH NAIL, 6 OR MORE 12/24/2020 07660-PMPREHF NAIL, 6 OR MORE 03/04/2021 38497-CYHESVH NAIL, 6 OR MORE 05/20/2021 08406-LEVOQCS NAIL, 6 OR MORE 07/22/2021 88231-GFJVKIU NAIL, 6 OR MORE 09/23/2021 76729-ITQIFKH NAIL, 6 OR MORE 12/02/2021 92707-JBAICLO NAIL, 6 OR MORE 02/24/2022 66183-EONLMPR NAIL, 6 OR MORE 05/12/2022 98689-OEEFQVS NAIL, 6 OR MORE 07/14/2022 30449-ZGIRXLL NAIL, 6 OR MORE 09/25/2022 21929-XWHDUXI NAIL, 6 OR MORE 12/22/2022 00933-VAHFEEK NAIL, 6 OR MORE 03/19/2023 85236-BJAOZJH NAIL, 6 OR MORE 06/01/2023 93391-FPNYTRL NAIL, 6 OR MORE 10/05/2023 52656-QQZVZVT NAIL, 6 OR MORE 12/28/2023 02217-LCEYXLX NAIL, 6 OR MORE 04/04/2024 88662-XXGTNXO NAIL, 6 OR MORE 07/04/2024 33045-Dvjh Destruction, 1-14 08/22/2013 72041-Fipf Destruction, 1-14 02/14/2013 95499-Czgo Destruction, 1-14 05/23/2013 13992-Sxwe Destruction, 1-14 08/24/2014 37820-Xlze Destruction, 1-14 05/25/2014 52298-Uqnz Destruction, 1-14 02/13/2014 63814-Swud Destruction, 1-14 11/07/2013 48463-Auxz Destruction, -14 12/04/2014 86045-Dqoj Destruction, -14 03/05/2015 90217- Debride <25 sq cm 02/22/2024 11775- Debride <25 sq cm 06/23/2022 65116- Debride <25 sq cm 03/10/2022 06552-QXEDKRC SKIN/TISSUE 02/01/2024 03551 I&D ABSCESS- SIMPLE,SINGLE 022 01541-IBPE SKIN LESIONS, OVER 4 05/12/19 23 91211-PYGJ SKIN LESIONS, OVER 4 02/25/20 22 88563-VMNG SKIN LESIONS, OVER 4 12/03/19 22 03455-CCFF SKIN LESIONS, OVER 4 03/19/20 23 45654-NRWA SKIN LESIONS, OVER 4 12/23/19 23 59109-SLUS SKIN LESIONS, OVER 4 09/26/19 23 38192-DMVL SKIN LESIONS, OVER 4 07/15/19 23 37059-XSVP SKIN LESIONS, OVER 4 09/24/19 22 27443-QSQB SKIN LESIONS, OVER 4 07/23/19 22 91875-NCGF SKIN LESIONS, OVER 4 05/20/19 22 33322-BBTH SKIN LESIONS, OVER 4 03/04/20 21 44446-ULVK SKIN LESIONS, OVER 4 12/25/19 21 85084-HYSI SKIN LESIONS, OVER 4 10/02/19 21 07842-JSRA SKIN LESIONS, OVER 4 06/26/19 21 61408-USXO SKIN LESIONS, OVER 4 02/27/20 20 87739-CJFU SKIN LESIONS, OVER 4 12/28/19 24 60143-KANR SKIN LESIONS, OVER 4 10/05/19 24 91329-DNQF SKIN LESIONS, OVER 4 06/01/19 24 73916-UKOQ SKIN LESIONS, OVER 4 07/05/19 25 27487-CWBK SKIN LESIONS, OVER 4 04/04/19 25 69747-HLUM SKIN LESIONS, OVER 4 12/05/19 15 28565-CPZQ SKIN LESIONS, OVER 4 06/04/19 16 44028-UKEE SKIN LESIONS, OVER 4 03/05/20 15 75892-DNAM SKIN LESIONS, OVER 4 02/14/20 14 77058-KTMK SKIN LESIONS, OVER 4 05/25/19 15 60895-WAWV SKIN LESIONS, OVER 4 08/25/19 15 16552-OKCX SKIN LESIONS, OVER 4 11/21/19 20 54231-ECOI SKIN LESIONS, OVER 4 07/21/19 20 66832-HWNI SKIN LESIONS, OVER 4 04/18/19 20 80369-LURN SKIN LESIONS, OVER 4 01/11/20 19 60894-RWCH SKIN LESIONS, OVER 4 10/12/19 19 17490-WCCO SKIN LESIONS, OVER 4 07/06/19 19 70494-VSZF SKIN LESIONS, OVER 4 04/05/19 19 37520-OYFR SKIN LESIONS, OVER 4 12/22/19 18 09891-GACQ SKIN LESIONS, OVER 4 09/15/19 18 74546-PCKR SKIN LESIONS, OVER 4 06/16/19 18 28363-XNXJ SKIN LESIONS, OVER 4 03/09/20 17 40847-DOBM SKIN LESIONS, OVER 4 12/05/19 17 71060-TFCV SKIN LESIONS, OVER 4 06/03/19 17 93155-KRHA SKIN LESIONS, OVER 4 09/02/19 17 95365-GRUP SKIN LESIONS, OVER 4 03/03/20 16 71158-LBRP SKIN LESIONS, OVER 4 12/03/19 16 59737-SMGU SKIN LESIONS, OVER 4 09/03/19 16 38315-SCJM SKIN LESIONS, 2 TO 4 11/08/19 14 03102-SLGX SKIN LESIONS, 2 TO 4 02/16/20 12 22532-AFHT SKIN LESIONS, 2 TO 4 11/12/19 13 25643-TTEV SKIN LESIONS, 2 TO 4 02/15/20 13 66134-DDLS SKIN LESIONS, 2 TO 4 08/23/19 14 72762-ADPU SKIN LESIONS, 2 TO 4 05/23/19 14 03270-NEVX SKIN LESIONS, 2 TO 4 08/03/19 13 18955-NLSQ SKIN LESIONS, 2 TO 4 05/03/19 13 28551-YUEI SKIN LESIONS, 2 TO 4 12/31/19 11 74223-RSWN SKIN LESIONS, 2 TO 4 05/12/19 12 T9863-STYURXKZ DYSTROPHIC NAILS ANY # G8195-HYCPOVMA DYSTROPHIC NAILS ANY # Next Appt Details Provider Name:Marquise Kumar , 10/10/2024 03:15:00 PM, [address] [place], [address], Insurance Providers Payer Name Payer Address Payer Phone Subscriber Number Group Number Insured Name Patient Relationship to Insured Coverage Start Date Coverage End Date Medicare [facility] [address] [place] [address] [id number] Shane Bueno Self - patient is the insured [employer] ([facility]) [address] [place] [address] [id number] Shane Bueno Self - patient is the insured Medical (General) History Medical History History ICD Code chicken pox back, hip, knee pain cholesterol hypertension type II diabetes Multiple sclerosis Surgical History Surgery Date(Month/Year) ear surgery heart surgery stent insertion 2008 Hospitalization History Reason Date(Month/Year[place] [facility] [place]
--- OUTSIDE RECORDS SUMMARY | 2024-08-14 14:19 | XMS_ITS ---
Author Organization [facility] Address [address] [place] [address] Care Team Providers Care Grant Coordinator Name Role Phone Elizabeth GARRISON, Zaria Primary Care Provider Unavail able Marquise Kumar Unavailable [phone] Allergies Allergen (clinical drug ingredient) Drug/Non Drug [...] Act samara Isosorbide Mononitrate Active Plavix Active [place]-3 Active HumaLOG Active Gabapentin Active Fish Oil [...] Ordered Date Performed Result Body Sit e 14453- Debride <25 sq cm 02/22/2024 N/A Encounters Encounter Location Date Provider Diagnosis [facility] [place] [address] [place] [address] 02/22/2024 Marquise Kumar Cellulitis of toe of [...] INSTRUCTIONS.pdf) Pending Test Test Name Order Date 54624- Debride <25 sq cm 02/22/2024 Next Appt Details Follow Up: 6 Weeks, Reason: Provider Name:Marquise Kumar , 10/10/2024 03:15:00 PM, [address] [place], [address], Procedure Notes * Category Sub-Category Detail Notes [...] of the wound post debridement is stable (33454) Progress Notes * Anette MESAcioDOB: (78 yo M)Acc No.[id number]:02/22/2024 Progress Notes 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 Provider:?Marquise Kumar DPM :1945???Age:78 Y???Sex:Male Evangelista e:02/22/2024 Address:[address] [place] [address], [place], [id number] Pcp:Zaria Johnson MD Subjective: * Chief Complaints: * ???Open sore - ToeSkin probl em(s) * HPI: ???Skin problems:?Nature:?Open sore , Ulcer ,redness, swelling , tender.?Location:?Bottom , Tip , 1st , Toe(s) , Left?.?Treatments:?medication ( Doxy 100 mg BID and Bacitracin topical ointment), Local care consisting of daily distilled water wound cleanse, topical antibiotic as recommended from [facility], application of sterile dressing, offloading/pressure reduction [...] stent insertion 2008 * Hospitalization/Major Diagno stic Procedure:[place] [place]24 * Family History:?Mother: dece [...] Mononitrate Lisinopril 40 MG Tablet Orally Multivitamins [place]-3 Plavix Pravastatin Sodium Trulicity Toujeo SoloStar Tylenol [...] 40 MG Tablet Orally Taking Multivitamins Taking [place]-3 Taking Plavix Taking Pravastatin Sodium Taking Trulicity [...] of the wound post debridement is stable (02911).? * Procedure Codes:?92309 ACTIV E WOUND CARE/20 CM OR < [...] DPM Date:?2023 Generated for Ileana ambriz/Jose Manuel/Ranjanitting on:?08/14/2024 02:19 PM EDT History and Physical [...] wound cleanse, topical antibiotic as recommended from [facility], application of sterile dressing, offloading/pressure reduction [...]
--- OUTSIDE RECORDS SUMMARY | 2024-08-14 14:19 | XMS_ITS | Patient Health Record ---
Author Organization [facility] Address [address] [place] [address] Care Team Providers Care Beef Cattle Grazier Name Role Phone Zaria Barnes Primary Care Provider Marty Cleary Unavailable [phone] Allergies No Known Allergies Reason For Referral [...] MG 2 capsules Orally at hs Active [place] 3 1000 MG 1 capsule Orally Onc [...] Problem Status W/U Status Risk Notes Problem 329520410 Encounter for screening for malignant neoplasm of colon (Z12.11) Active confirmed Problem 399123671 History of adenomatous polyp of colon (Z86.010) Active confirmed Problem Diverticular disease of colon (782813568) Diverticulosis of large intestine without perforation or abscess without bleeding (K57.30) Active confirmed Problem 064547719 Preprocedural examination (Z01.818) Active confirmed Problem 325377517 Aspirin long-ter m use (Z79.82) Active confirmed Plan Of Treatment Future Test Test Name Order Date COLONOSCOPY 04/02/2011 COLONOSCOPY 11/19/2016 COLONOSCOPY 05/14/2022 Insurance Providers Payer Name Payer Address Payer Phone Subscriber Number Group Number Insured Name Patient Relationship to Insured Coverage Start Date Coverage End Date MEDICARE OF [place] [address] [place] [address] [id number] PRISCILLA DISLA Self - patient is the insured [facility] [address] [place] [address] [id number] PRISCILLA DISLA Self - patient is the insured Medical (General) History Medical History History ICD Code Hyperlipidemia Hypertension IDDM Coronary artery disease with placement of a stent by Dr. Correia--? of [place] prior to that Denies history of stroke, lung disease, nor renal disease Colonoscopy 05/2011--small tu bular adenoma removed, diverticulosis, internal hemorrhoids; he had previous colonoscopies at [place] Negative colonoscopy in 01/2017 Surgical History Surgery Date(Month/Year) left ear surgery benign breast biopsy
--- OUTSIDE RECORDS SUMMARY | 2024-08-14 14:19 | XMS_ITS ---
Author Organization [facility] Address [address] [place] [address] Care Team Providers Care Web Services Professional Name Role Phone Elizabeth GARRISON, Zaria Primary Care Provider Unavail able Marquise Kumar Unavailable [phone] Allergies Allergen (clinical drug ingredient) Drug/Non Drug [...] (M20.41,M20.42), Preulcerative Skin Lesion(s) (L85.1) 12/28/2023 Active [place]-3 Active Plavix Active Multivitamins Active Pravastatin Sodium [...] Ordered Date Performed Result Body Sit e 45209-DSHKIZH NAIL, 6 OR MORE 04/04/2024 N/A 42970-VQJX SKIN LESIONS, OVER 4 04/04/2024 N/A Encounters Encounter Location Date Provider Diagnosis [facility] [address] [place] [address] 04/04/2024 Marquise Stacy Type 1 diabetes mellitus [...] Treatment Pending Test Test Name Order Date 54831-RJNPVWZ NAIL, 6 OR MORE 04/04/2024 11727-IAIP SKIN LESIONS, OVER 4 04/04/19 25 Next Appt Details Follow Up: prn, Reason: Provider Name:Marquise Alex SethStacy , 10/10/2024 03:15:00 PM, [address] [place] [address], [address], Procedure Notes * Category Sub-Category Detail Notes [...] use of a nail nipper and/or dremel-type knife setter grinder machine, to a more viable healthy nail plate [...] to maintain effectiveness in symptomatic relief - 00829 Keratoma Treatment Parring or Cutting o f [...] instrumentation by the physician of record - 63682 Progress Notes * Anette MESAcioDOB: (78 yo M)Acc No.[id number]:04/04/2024 Progress Note 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 Provider:?Marquise Kumar DPM :1945???Age:78 Y???Sex:Male Evangelista e:04/04/2024 Address:[address] [place], [place] [address], [phone] Pcp:Zaria Johnson MD Subjective: * Chief Complaints: * ???At Risk FootcareOpen sore - Toe * HPI: ???At Risk footcare:?Pt States Last PCP Visit:?Date?09/27/2023 ???Skin problems:?Nature:?Open sore , Ulcer?.?Location:?Bottom , Tip , 1st , Toe(s) , Left?.?Treatments:?medication ( Doxy 100 mg BID and Bacitracin topical ointment), Local care consisting of daily distilled water wound cleanse, topical antibiotic as recommended from [facility], application of sterile dressing, offloading/pressure reduction [...] Mononitrate Lisinopril 40 MG Tablet Orally Multivitamins [place]-3 Plavix Pravastatin Sodium Trulicity Toujeo SoloStar Tylenol [...] 40 MG Tablet Orally Taking Multivitamins Taking [place]-3 Taking Plavix Taking Pravastatin Sodium Taking Trulicity [...] use of a nail nipper and/or dremel-type knife setter grinder machine, to a more viable healthy nail plate [...] to maintain effectiveness in symptomatic relief - 15940.?Keratoma Treatment:?Parring or Cutting of Benign Hyperkeratotic Lesion(s)?(-57) [...] instrumentation by the physician of record - 61223.? * Procedure Codes:?68996 DEBRI DE NAIL, 6 OR MORE, Modifiers: XS 32373 TRIM SKIN LESIONS, OVER 4, Modifiers: XS [...] wound cleanse, topical antibiotic as recommended from [facility], application of sterile dressing, offloading/pressure reduction [...]
== END 2024-08-14 15:06 | disposition home or self-care (01) ==
LOC: HO.HMCH 14:11
PROVIDERS: PCP Internal Medicine; Visit Provider Internal Medicine
DX: E11.69 Type 2 diabetes mellitus with other specified complication (principal); Z79.4 Long term (current) use of insulin; I10 Essential (primary) hypertension; E78.5 Hyperlipidemia, unspecified; F33.0 Major depressive disorder, recurrent, mild; G25.2 Other specified forms of tremor

== ENCOUNTER → 2024-08-14 14:10 | Outpatient (BNVA) | payer MEDICARE, OTHER, SELFPAY | PROVIDERS: PCP Internal Medicine; Visit Provider Internal Medicine | DX: E11.69 Type 2 diabetes mellitus with other specified complication (principal); I10 Essential (primary) hypertension; E78.5 Hyperlipidemia, unspecified; F33.0 Major depressive disorder, recurrent, mild; G25.2 Other specified forms of tremor; Z79.4 Long term (current) use of insulin | CPT/HCPCS: 96127; 99212 ==

== ENCOUNTER 2024-10-03 15:16 | Outpatient (AMB) | payer MEDICARE, OTHER, SELFPAY ==
[2024-10-03 15:33] VITALS: BP 118/70; BMI 27.1
--- NOTE | 2024-10-03 15:33 | MHC.PC.OV ---
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 Required: No Accompanied by: Self / Same As Patient Allergies No Known Allergies Allergy (Verified 10/03/24 15:43) Medication List - Last Reconciled 10/03/24 by Zaria Page MD ascorbic acid (vitamin C) (Vitamin C) 500 mg PO DAILY aspirin 81 mg PO DAILY 30 days blood sugar diagnostic As directed blood sugar diagnostic (OneTouch Verio test strips) 3 times a day blood-glucose meter (OptiniTouch Verio Reflect kit) As directed [diabetic shoes As directed] gabapentin 200 mg (2 x 100 mg) PO BEDTIME insulin aspart (niacinamide) 100 unit/mL (3 mL) (Fiasp FlexTouch U-100 Insulin) 10 units subcut TID 30 days insulin degludec (Tresiba FlexTouch U-100 insulin) 32 units (0.32 mL) subcut DAILY 30 days isosorbide mononitrate ER 60 mg PO DAILY lancets As directed lancets (OneTouch Delica Lancets) 3 times a day lisinopril 40 mg PO DAILY multivitamin 1 tab PO DAILY omega-3 fatty acids-fish oil 340-1,000 mg 1 cap PO DAILY pen needle, diabetic 5 times a day pravastatin 80 mg PO BEDTIME 90 days tirzepatide 5 mg (0.5 mL) subcut QWEEK 4 weeks vitamin B complex 1 tab PO DAILY Tobacco use date assessed: 08/14/24 Fall risk assessment: No Falls in past year Last assessed Fall Risk: 10/03/24 Dental Screening Dental Screen Date: 05/31/24 HPI HPI Comments History of Present Illness Details The patient is a 79-year-old male presenting with weight loss secondary to Mounjaro most likely and tremor. The patient has experienced a weight loss of 9 pounds over the past two months, despite no significant changes in diet or exercise habits. He has diabetes mellitus and his A1c is 6.4% today. Has hypertension and hyperlipidemia stable with medications. The patient reports a tremor that affects his ability to write and hold objects, such as a coffee cup, interfering with daily activities. The patient is currently on multiple medications, including gabapentin, insulin, isosorbide, lisinopril, omega-3, pravastatin, and Mounjaro, with good tolerance to Mounjaro. 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 There is a plan to conduct laboratory tests as part of preventative care, as it has been some time since the last evaluation. Also has hyperparathyroidism that will be monitor. [facility] Medical History Diabetes mellitus with hyperglycemia, with long-term current use of insulin Hyperparathyroidism Diabetic angiopathy Peripheral vascular disease due to secondary diabetes Psychosis Multiple sclerosis Myocardial infarct, old Thyroid nodule Diabetes mellitus Lumbar degenerative disc disease Diabetic polyneuropathy associated with type 2 diabetes mellitus Proliferative diabetic retinopathy Hypertension Dyslipidemia longterm (current) use of insulin Diabetes type 2, uncontrolled Long-term use of aspirin therapy Surgical History Hx of colonoscopy Hx of heart artery stent Family History Father No problems noted. Mother Diabetes Social History Housing: Apartment Alcohol intake: never Patient Tobacco Use Status: Never used Tobacco e-Cigarette/Vaping Use: Never Used Second Hand Smoke Exposure: No service: No Current occupational status: disabled Cognitive needs: No Hearing needs: No Vision needs: Yes Questionnaire Thrive Questionnaire Date Thrive assessed: 08/14/24 I am a: Patient What is your living situation today?: I have a steady place to live Within the past 12 months, did the food you bought not last and you didn't have the money to get more?: Never true Within the past 12 months, did you worry whether your food would run out before you got money to buy more?: Never true Do you have trouble paying for medicines?: No Do you have trouble getting transportation to medical appointments?: No Do you have trouble paying your heating and electricity bill?: No Do you have trouble taking care of your child, family member or friend?: No Do you have trouble with day-to-day activities such as bathing, preparing meals, shopping, managing finances, etc.?: No Are you currently unemployed and looking for a job?: No Are you interested in more education?: No Please select the resources that you would like help with: None Currently or been in a relationship where the following occur: No concerns reported THRIVE Score: 0 RAVI-7 AMB Questionnaire RAVI-7 Date RAVI - 7 assessed: 05/31/24 Feeling nervous, anxious, or on edge: 0 = Not at all Not being able to stop or control worryin = Not at all Worrying too much about different things: 0 = Not at all Trouble relaxin = Not at all Being so restless that it is hard to sit still: 0 = Not at all Becoming easily annoyed or irritable: 0 = Not at all Feeling afraid as if something awful might happen: 0 = Not at all Total RAVI-7 score (0-4 normal; 5-9 mild; 10-14 moderate; 15-21 severe): 0 Source: Developed by Drs. Marty Bellamy, Sahra Walker, Bryan Jamison and colleagues, with an educational nahomi from [employer]. Review of Systems Const All systems reviewed & are unremarkable except as noted in HPI and below Card Denies chest pain at rest, Denies chest pain with activity, Denies edema, Denies irregular heart rhythm, Denies claudication, Denies dyspnea, Denies dyspnea on exertion, Denies orthopnea, Denies paroxysmal nocturnal dyspnea and Denies slow heart rate Resp Denies cough, Denies dyspnea and Denies dyspnea on exertion Physical exam (Primary Care) Vital Signs: Last Vital Signs BP 118/70 10/03/24 15:33 BMI result Body Mass Index 27.1 Tobacco/Smoking Status: Tobacco use Status Tobacco use date assessed 08/14/24 10/03/24 15:36 Patient Tobacco Use Status Never used Tobacco 10/03/24 15:36 e-Cigarette/Vaping Use Never Used 10/03/24 15:36 Thrive Assessment: Date of Thrive Assessment Date Thrive assessed 08/14/24 10/03/24 15:36 Currently or been in a relationship where the following occur: No concerns reported Resp Effort & Inspection: normal respiratory effort Auscultation: clear to auscultation bilaterally Cardio Jugular venous distension: no JVD Rate: regular rate Rhythm: regular rhythm Heart sounds: S1 normal heart sound present and S2 normal heart sound present Extrem General: Yes full ROM Results AMB Hemoglobin A1c AMB Hemoglobin A1c 6.4 % Last Edit by BOBBY Weller on 10/03/24 15:41 Results Reviewed Results Reviewed: Laboratory Last Values Hgb A1c (Clinic) 6.4 % (4.0-6.0) H 10/03/24 15:20 Coding Level of Care Code Est Pt Level 4 (83155) Complex EM visit Add On G2211 Diagnoses 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 Type 2 diabetes mellitus with other specified complication, with long-term current use of insulin E11.69; Z79.4 Diabetes mellitus type: type 2 Diabetes mellitus nursing home insulin use: with nursing home use Diabetes mellitus complication status: with other specified complication Coarse tremors G25.2 Essential hypertension I10 Hypertension type: essential hypertension Dyslipidemia E78.5 Hyperparathyroidism E21.3 Time Spent (min) 22 Assessment & Plan Assessment & Plan (1) Mild recurrent major depression: Code(s): F33.0 - Major depressive disorder, recurrent, mild Category: Medical (2) Diabetes mellitus: Code(s): E11.9 - Type 2 diabetes mellitus without complications Category: Medical Qualifiers: Diabetes mellitus type: type 2 Diabetes mellitus nursing home insulin use: with nursing home use Diabetes mellitus complication status: with other specified complication Qualified Code(s): E11.69 - Type 2 diabetes mellitus with other specified complication; Z79.4 - terminal carman (current) use of insulin (3) Coarse tremors: Code(s): G25.2 - Other specified forms of tremor Category: Medical (4) Hypertension: Code(s): I10 - Essential (primary) hypertension Category: Medical Qualifiers: Hypertension type: essential hypertension Qualified Code(s): I10 - Essential (primary) hypertension (5) Dyslipidemia: Code(s): E78.5 - Hyperlipidemia, unspecified Category: Medical (6) Hyperparathyroidism: Code(s): E21.3 - Hyperparathyroidism, unspecified Category: Medical Plan The plan includes conducting laboratory tests to evaluate the patient's current health status, given the recent weight loss and the time elapsed since the last evaluation. The patient's medication regimen will be maintained, with particular attention to the effects of Mounjaro, which has been beneficial. The patient is advised to monitor for any new symptoms or changes in his condition, particularly related to the tremor and weight loss. Patient was informed and verbally consented to the use of an ambient scribe for clinic note documentation during this visit. Orders: Orders AMB Hemoglobin A1c Today E11.69 - Type 2 diabetes mellitus with other specified complication, Z79.4 - terminal carman (current) use of insulin Lipid Panel Today E78.5 - Hyperlipidemia, unspecified Microalbumin, Random (w Creat) Today R80.9 - Proteinuria, unspecified IRON PROFILE Today D64.9 - Anemia, unspecified Vitamin D 25-OH Total Today E55.9 - Vitamin D deficiency, unspecified Parathyroid Hormone Intact Today E21.3 - Hyperparathyroidism, unspecified Calcium, Ionized Today E21.3 - Hyperparathyroidism, unspecified Phosphorus Today E21.3 - Hyperparathyroidism, unspecified Complete Blood Count Auto Diff Today D64.9 - Anemia, unspecified Vitamin B12 and Folate Today E53.8 - Deficiency of other specified B group vitamins Comprehensive [place]. Panel Fast Today E21.3 - Hyperparathyroidism, unspecified Calcium, Random Urine Today E21.3 - Hyperparathyroidism, unspecified Thyroid Stimulating Hormone Today G25.2 - Other specified forms of tremor
--- OUTSIDE RECORDS SUMMARY | 2024-10-03 15:51 | XMS_ITS | Patient Health Record ---
Author Organization [facility] Address [address] [place] [address] Care Team Providers Care Milk Pickup Driver Name Role Phone Elizabeth GARRISON, Zaria Primary Care Provider Unavail able Marquise Kumar Unavailable [phone] Allergies Allergen (clinical drug ingredient) Drug/Non Drug [...] Skin Lesion(s) (L85.1) Active Isosorbide Mononitrate Active [place]-3 Active Multivitamins Active Pravastatin Sodium A ctive Plavix Active Toujeo SoloStar Acti ve Trulicity Active Tylenol Active Baby Aspirin Active Fish Oil Active Benicar Active HumaLOG Active Ciclopirox Olamine 0.77 % 1 application Externally Twice a day; Duration: 30 days Active Gabapentin Active Vit Balanced [...] Problem Acquired hammer toe of right foot ([id number] ) Other hammer toe(s) (acquired), right foot (M20.41) Active confirmed Response to treatment, Improvemen t Problem Acquired hammer toe of left foot ([id number] ) Other hammer toe(s) (acquired), left foot (M20.42) Active confirmed Response to treatment, Improvemen t Problem Polyneuropathy due to diabetes mellitus type I (604349483) Type 1 diabetes mellitus with diabetic polyneuropathy (E10.42) Active confirmed Vital Signs Blood pressure diastolic 60 mm Hg 07/04/2024 Height 5 ft 6 in in 07/04/2024 Blood pressure systolic 120 mm Hg 07/04/2024 Weight 175 lbs 07/04/2024 BMI 28.24 kg/m2 07/04/2024 Procedures Procedure Date Ordered Date Performed Result Body Sit e 86543-EFTNZPR NAIL, 6 OR MORE 10/05/2023 N/A 30033-DSYD SKIN LESIONS, OVER 4 10/05/2023 N/A 94335-UWZVQVA NAIL, 6 OR MORE 12/28/2023 N/A 42256-NEBN SKIN LESIONS, OVER 4 12/28/2023 N/A 00703-ELXUPBO SKIN/TISSUE 02/01/2024 N/A 32262- Debride <25 sq cm 02/22/2024 N/A 27735-OZBSJVK NAIL, 6 OR MORE 04/04/2024 N/A 30681-QSJP SKIN LESIONS, OVER 4 04/04/2024 N/A 46684-SQEOADV NAIL, 6 OR MORE 07/04/2024 N/A 19291-TSRN SKIN LESIONS, OVER 4 07/04/2024 N/A Encounters Encounter Location Date Provider Diagnosis [address] [address] 10/05/2023 Marquise Kumar Type 1 diabetes mellitus with diabetic polyneuropathy E10.42 ; Onychomycosis B35.1 and Tinea pedis of both feet B35.[address] [address] 12/28/2023 Marquiseclovis Kumar Type 1 diabetes mellitus with diabetic polyneuropathy E10.42 ; Tinea unguium B35.1 ; Other hammer toe(s) (acquired), right foot M20.41 ; Other hammer toe(s) (acquired), left foot M20.42 and Tinea pedis of both feet B35.[address] [address] 02/01/2024 Marquise Kumar Skin ulcer of toe of left foot with fat layer exposed L97.522 ; Cellulitis of toe of left foot L03.032 and Type 1 diabetes mellitus with diabetic polyneuropathy E10.[address] [address] 02/22/2024 Marquise Kumar Cellulitis of toe of left foot L03.032 ; Skin ulcer of toe of left foot, limited to breakdown of skin L97.521 and Type 1 diabetes mellitus with diabetic polyneuropathy E10.[address] [address] 04/04/2024 Marquise Kumar Type 1 diabetes mellitus with diabetic polyneuropathy E10.42 ; Skin ulcer of toe of left foot, limited to breakdown of skin L97.521 and Tinea unguium B35.[address] [address] 07/04/2024 Marquise Kumar Type 1 diabetes mellitus with diabetic polyneuropathy E10.42 ; Tinea unguium B35.1 ; Other hammer toe(s) (acquired), right foot M20.41 and Other hammer toe(s) (acquired), left foot M20.42 [facility] [address] [address] 10/05/2023 Marquise Kumar [facility] [address] 02/01/2024 Marquise Kumar Assessments Encounter Date Diagnosis [...] Test Name Order Date Hemoglobin A1c 03/05/2015 33740-KHCOJYY NAIL, 6 OR MORE 03/05/2015 95903-TIUPEZA NAIL, 6 OR MORE 06/04/2015 45288-CNKMDCC NAIL, 6 OR MORE 12/04/2014 96927-NZVTOMR NAIL, 6 OR MORE 11/07/2013 13412-EYZCYVO NAIL, 6 OR MORE 02/13/2014 56377-NNRJALC NAIL, 6 OR MORE 05/25/2014 81357-ZSDOTZF NAIL, 6 OR MORE 08/24/2014 33231-EJFKZIA NAIL, 6 OR MORE 02/16/2012 75664-UYJJIXJ NAIL, 6 OR MORE 05/03/2012 01471-TXLHSPY NAIL, 6 OR MORE 08/02/2012 10106-JNDJAYH NAIL, 6 OR MORE 11/11/2012 45354-PLEXHCG NAIL, 6 OR MORE 02/14/2013 70388-HLMRQNZ NAIL, 6 OR MORE 05/23/2013 11672-PMBSZYD NAIL, 6 OR MORE 08/22/2013 64310-EJLDESO NAIL, 6 OR MORE 09/03/2015 75288-HZEDIGB NAIL, 6 OR MORE 12/03/2015 24665-YFVAHOF NAIL, 6 OR MORE 03/03/2016 83801-ISUTGYM NAIL, 6 OR MORE 06/02/2016 90168-HAHOHDK NAIL, 6 OR MORE 09/01/2016 71350-WBFNOTM NAIL, 6 OR MORE 12/04/2016 60774-OLSEWYK NAIL, 6 OR MORE 03/09/2017 42085-SQABJAK NAIL, 6 OR MORE 06/15/2017 58336-KYTTKRJ NAIL, 6 OR MORE 09/14/2017 03697-ZOHORYS NAIL, 6 OR MORE 12/21/2017 05795-UJLOAYU NAIL, 6 OR MORE 04/05/2018 53150-IFZROLH NAIL, 6 OR MORE 07/05/2018 94042-GOKWORS NAIL, 6 OR MORE 10/11/2018 67218-KPLOZIB NAIL, 6 OR MORE 01/10/2019 72834-YUXOBME NAIL, 6 OR MORE 04/18/2019 49278-QJBRNJC NAIL, 6 OR MORE 07/21/2019 87311-EFUVHXB NAIL, 6 OR MORE 11/21/2019 34278-GJHFTXX NAIL, 6 OR MORE 02/27/2020 75088-JKYMLLV NAIL, 6 OR MORE 06/25/2020 96097-HMGGRDE NAIL, 6 OR MORE 10/01/2020 76203-FOYBQAK NAIL, 6 OR MORE 12/24/2020 21488-HKRSXMB NAIL, 6 OR MORE 03/04/2021 05642-HGXEFVW NAIL, 6 OR MORE 05/20/2021 19915-HTUTJCR NAIL, 6 OR MORE 07/22/2021 98952-EZRHIVC NAIL, 6 OR MORE 09/23/2021 35642-UKHEWYU NAIL, 6 OR MORE 12/02/2021 78195-WAPEGJP NAIL, 6 OR MORE 02/24/2022 81988-TPRIJBY NAIL, 6 OR MORE 05/12/2022 42658-HYAHVVN NAIL, 6 OR MORE 07/14/2022 48268-AVXVFRW NAIL, 6 OR MORE 09/25/2022 28164-JZMVGTD NAIL, 6 OR MORE 12/22/2022 38722-PPEKKKI NAIL, 6 OR MORE 03/19/2023 39762-IDYFOOF NAIL, 6 OR MORE 06/01/2023 06332-DNSXHMO NAIL, 6 OR MORE 10/05/2023 82431-JFXPSFZ NAIL, 6 OR MORE 12/28/2023 23620-RLAZWHT NAIL, 6 OR MORE 04/04/2024 94733-ZPZLHLE NAIL, 6 OR MORE 07/04/2024 32321-Qhqo Destruction, 1-14 08/22/2013 31669-Fmiy Destruction, 1-14 02/14/2013 68180-Wvgy Destruction, 1-14 05/23/2013 22447-Xqyx Destruction, -14 08/24/2014 59642-Hfgu Destruction, -14 05/25/2014 02697-Iyxu Destruction, 1-14 02/13/2014 97817-Xkag Destruction, -14 11/07/2013 47366-Rmit Destruction, -14 12/04/2014 53757-Xymg Destruction, -14 03/05/2015 73141- Debride <25 sq cm 02/22/2024 66851- Debride <25 sq cm 06/23/2022 26553- Debride <25 sq cm 03/10/2022 30793-BETFLCN SKIN/TISSUE 02/01/2024 50254 I&D ABSCESS- SIMPLE,SINGLE 022 02762-GTPM SKIN LESIONS, OVER 4 05/12/19 23 41949-NXJS SKIN LESIONS, OVER 4 02/25/20 22 15835-ROWT SKIN LESIONS, OVER 4 12/03/19 22 46801-NDFH SKIN LESIONS, OVER 4 03/19/20 23 29567-DWVW SKIN LESIONS, OVER 4 12/23/19 23 40334-LCXS SKIN LESIONS, OVER 4 09/26/19 23 33330-WOXS SKIN LESIONS, OVER 4 07/15/19 23 57392-PVCF SKIN LESIONS, OVER 4 09/24/19 22 67326-QDUV SKIN LESIONS, OVER 4 07/23/19 22 05755-JXAQ SKIN LESIONS, OVER 4 05/20/19 22 73607-WRUA SKIN LESIONS, OVER 4 03/04/20 21 51652-FEOL SKIN LESIONS, OVER 4 12/25/19 21 74845-ZVWR SKIN LESIONS, OVER 4 10/02/19 21 33255-BXNW SKIN LESIONS, OVER 4 06/26/19 21 12522-ASWA SKIN LESIONS, OVER 4 02/27/20 20 69149-UXTP SKIN LESIONS, OVER 4 12/28/19 24 88974-PCQR SKIN LESIONS, OVER 4 10/05/19 24 96328-DPMP SKIN LESIONS, OVER 4 06/01/19 24 46166-UKDZ SKIN LESIONS, OVER 4 07/05/19 25 39478-UEWO SKIN LESIONS, OVER 4 04/04/19 25 28730-EOUB SKIN LESIONS, OVER 4 12/05/19 15 30870-XBTO SKIN LESIONS, OVER 4 06/04/19 16 47768-HFBI SKIN LESIONS, OVER 4 03/05/20 15 93545-LOKI SKIN LESIONS, OVER 4 02/14/20 14 83235-KQNQ SKIN LESIONS, OVER 4 05/25/19 15 28693-ENKH SKIN LESIONS, OVER 4 08/25/19 15 12515-GQZK SKIN LESIONS, OVER 4 11/21/19 20 10062-DBUK SKIN LESIONS, OVER 4 07/21/19 20 14427-XLBW SKIN LESIONS, OVER 4 04/18/19 20 30901-NBFJ SKIN LESIONS, OVER 4 01/11/20 19 09174-EABT SKIN LESIONS, OVER 4 10/12/19 19 58225-UUXN SKIN LESIONS, OVER 4 07/06/19 19 61185-JATJ SKIN LESIONS, OVER 4 04/05/19 19 10858-BNZV SKIN LESIONS, OVER 4 12/22/19 18 04657-JUAL SKIN LESIONS, OVER 4 09/15/19 18 45842-XHNZ SKIN LESIONS, OVER 4 06/16/19 18 17554-DODD SKIN LESIONS, OVER 4 03/09/20 17 05751-SLLZ SKIN LESIONS, OVER 4 12/05/19 17 58161-YMRY SKIN LESIONS, OVER 4 06/03/19 17 34352-ZJRM SKIN LESIONS, OVER 4 09/02/19 17 94788-OQPE SKIN LESIONS, OVER 4 03/03/20 16 07122-JDDP SKIN LESIONS, OVER 4 12/03/19 16 30844-JQTO SKIN LESIONS, OVER 4 09/03/19 16 34704-UJCG SKIN LESIONS, 2 TO 4 11/08/19 14 86843-YQQB SKIN LESIONS, 2 TO 4 02/16/20 12 50841-NNVM SKIN LESIONS, 2 TO 4 11/12/19 13 13770-VORY SKIN LESIONS, 2 TO 4 02/15/20 13 27479-ZMMF SKIN LESIONS, 2 TO 4 08/23/19 14 55458-CWDD SKIN LESIONS, 2 TO 4 05/23/19 14 66433-CPNB SKIN LESIONS, 2 TO 4 08/03/19 13 73809-JVYB SKIN LESIONS, 2 TO 4 05/03/19 13 56698-MUXV SKIN LESIONS, 2 TO 4 12/31/19 11 77025-YCNB SKIN LESIONS, 2 TO 4 05/12/19 12 P1770-JZKCRPAB DYSTROPHIC NAILS ANY # I0906-EKKNRIEU DYSTROPHIC NAILS ANY # Next Appt Details Provider Name:Marquise Kumar , 10/10/2024 03:15:00 PM, [address] [place], [address], Insurance Providers Payer Name Payer Address Payer Phone Subscriber Number Group Number Insured Name Patient Relationship to Insured Coverage Start Date Coverage End Date Medicare National Govt [facility] [address] [facility] [place] [address] [id number] Shane Bueno Self - patient is the insured [employer] ([facility]) [address] [place] [address] [id number] Shane Bueno Self - patient is the insured Medical (General) History Medical History History ICD Code chicken pox back, hip, knee pain cholesterol hypertension type II diabetes Multiple sclerosis Surgical History Surgery Date(Month/Year) ear surgery heart surgery stent insertion 2008 Hospitalization History Reason Date(Month/Year) C- toe issues 01/28/24
--- OUTSIDE RECORDS SUMMARY | 2024-10-03 15:51 | XMS_ITS | Patient Health Record ---
Author Organization [facility] Address [address] [place] [address] Care Team Providers Care Corporate Coordinator Name Role Phone Zaria Barnes Primary Care Provider Marty Cleary Unavailable [phone] Allergies No Known Allergies Reason For Referral [...] MG 2 capsules Orally at hs Active [place] 3 1000 MG 1 capsule Orally Onc [...] Problem Status W/U Status Risk Notes Problem 306022752 Encounter for screening for malignant neoplasm of colon (Z12.11) Active confirmed Problem 653775295 History of adenomatous polyp of colon (Z86.010) Active confirmed Problem Diverticulosis o f large intestine without perforation or abscess without bleeding (K57.30) Active confirmed Problem 504203690 Preprocedural examination (Z01.818) Active confirmed Problem 238875013 Aspirin long-ter m use (Z79.82) Active confirmed Plan Of Treatment Future Test Test Name Order Date COLONOSCOPY 04/02/2011 COLONOSCOPY 11/19/2016 COLONOSCOPY 05/14/2022 Insurance Providers Payer Name Payer Address Payer Phone Subscriber Number Group Number Insured Name Patient Relationship to Insured Coverage Start Date Coverage End Date MEDICARE OF [place] [address] [place] [address] [id number] PRISCILLA DISLA Self - patient is the insured [facility] INDEMNITY [address] [place] [address] [id number] PRISCILLA DISLA Self - patient is the insured Medical (General) History Medical History History ICD Code Hyperlipidemia Hypertension IDDM Coronary artery disease with placement of a stent by Dr. Correia--? of [place] prior to that Denies history of stroke, lung disease, nor renal disease Colonoscopy 05/2011--small tu bular adenoma removed, diverticulosis, internal hemorrhoids; he had previous colonoscopies at [facility] Negative colonoscopy in 01/2017 Surgical History Surgery Date(Month/Year) left ear surgery benign breast biopsy
== END 2024-10-03 15:55 | disposition home or self-care (01) ==
LOC: HO.HMCH 15:16
PROVIDERS: PCP Internal Medicine; Visit Provider Internal Medicine
DX: F33.0 Major depressive disorder, recurrent, mild (principal); E11.69 Type 2 diabetes mellitus with other specified complication; Z79.4 Long term (current) use of insulin; G25.2 Other specified forms of tremor; I10 Essential (primary) hypertension; E78.5 Hyperlipidemia, unspecified; E21.3 Hyperparathyroidism, unspecified

== ENCOUNTER → 2024-10-03 15:16 | Outpatient (BNVA) | payer MEDICARE, OTHER, SELFPAY | PROVIDERS: PCP Internal Medicine; Visit Provider Internal Medicine | DX: F33.0 Major depressive disorder, recurrent, mild (principal); E11.69 Type 2 diabetes mellitus with other specified complication; G25.2 Other specified forms of tremor; E78.5 Hyperlipidemia, unspecified; I10 Essential (primary) hypertension; E21.3 Hyperparathyroidism, unspecified; Z79.4 Long term (current) use of insulin | CPT/HCPCS: 83036; 99212 ==

== ENCOUNTER 2024-10-09 12:43 | Outpatient (AMB) | payer MEDICARE, OTHER, SELFPAY ==
--- NOTE | 2024-10-09 12:56 | MHC.OFFVIS ---
Intake Visit Reasons: 1 yr, tremor, hallucinations Allergies No Known Allergies Allergy (Verified 10/03/24 15:43) Medication List - Last Reconciled 10/09/24 by Marcio Saab MD ascorbic acid (vitamin C) (Vitamin C) 500 mg PO DAILY aspirin 81 mg PO DAILY 30 days blood sugar diagnostic As directed blood sugar diagnostic (OneTouch Verio test strips) 3 times a day blood-glucose meter (Local Plant SourceTouch Verio Reflect kit) As directed [diabetic shoes As directed] gabapentin 200 mg (2 x 100 mg) PO BEDTIME insulin aspart (niacinamide) 100 unit/mL (3 mL) (Fiasp FlexTouch U-100 Insulin) 10 units subcut TID 30 days insulin degludec (Tresiba FlexTouch U-100 insulin) 32 units (0.32 mL) subcut DAILY 30 days isosorbide mononitrate ER 60 mg PO DAILY lancets As directed lancets (Local Plant SourceTouch Delica Lancets) 3 times a day lisinopril 40 mg PO DAILY multivitamin 1 tab PO DAILY omega-3 fatty acids-fish oil 340-1,000 mg 1 cap PO DAILY pen needle, diabetic 5 times a day pravastatin 80 mg PO BEDTIME 90 days tirzepatide 5 mg (0.5 mL) subcut QWEEK 4 weeks vitamin B complex 1 tab PO DAILY HPI Comments Details: 79 yo LH man with life long h/o tremor, with stress related to his 's mental illness with mostly benign auditory hallucinations. He continues to have hallucinations and apparently they have gotten somewhat worse. Tremor was not that severe. Main issue was anxiety and hallucinations. [facility] Medical History (Updated 10/09/24 @ 13:07 by Marcio Saab MD) Stress Parkinsonism, secondary Hallucination Diabetes mellitus with hyperglycemia, with long-term current use of insulin Hyperparathyroidism Diabetic angiopathy Peripheral vascular disease due to secondary diabetes Psychosis Multiple sclerosis Myocardial infarct, old Thyroid nodule Diabetes mellitus Lumbar degenerative disc disease Diabetic polyneuropathy associated with type 2 diabetes mellitus Proliferative diabetic retinopathy Hypertension Dyslipidemia MCC (current) use of insulin Diabetes type 2, uncontrolled Long-term use of aspirin therapy Surgical History Hx of colonoscopy Hx of heart artery stent Family History Father No problems noted. Mother Diabetes Social History Housing: Apartment Alcohol intake: never Patient Tobacco Use Status: Never used Tobacco e-Cigarette/Vaping Use: Never Used Second Hand Smoke Exposure: No service: No Current occupational status: disabled Cognitive needs: No Hearing needs: No Vision needs: Yes Review of Systems Const Details: Constitutional:?No fever, chills, fatigue, weight loss, or night sweats. HEENT:?No headache, vision changes, hearing loss, nasal congestion, sore throat. Neurological:?No dizziness, syncope, seizures, numbness, tingling, weakness, tremors, memory loss. Psychiatric:? Significant anxiety and hallucinations, visual and auditory type. Endocrine:?No heat/cold intolerance, polydipsia, polyuria, or hair/skin changes. Hematologic/Lymphatic:?No easy bruising, bleeding, or lymphadenopathy. Integumentary (Skin):?No rash, lesions, itching, or color changes. ? Physical Exam Neuro Other: Mental Status: Alert and oriented to person, place, and time. Normal attention. Normal spontaneous speech, fluency, and comprehension. No obvious issues with mood and memory. Affect is appropriate. Cranial Nerves: CN II: Visual regan full to confrontation, visual acuity intact. CN III, IV, : Pupils equal, round, reactive to light and accommodation. Extraocular movements are normal. CN V: Facial sensation is normal. CN VII: Facial movements symmetrical. CN VIII: Hearing intact to bedside conversation is normal. CN IX, X: Palate elevates symmetrically. CN XI: Shoulder shrug and head turn symmetrical. CN XII: Tongue midline without atrophy or fasciculations. Extrapyramidal: Full facial expressions and blinking. No rigidity. Movements are appropriate with no tremor or abnormality. Speech: Normal; no dysarthria or tremor. Assessment & Plan Assessment & Plan (1) Tremor: Comment: [place] brain [place] [facility] [place]: Minimal atrophy and minimal MVD. Code(s): R25.1 - Tremor, unspecified Category: Medical (2) Hallucination: Code(s): R44.3 - Hallucinations, unspecified Category: Medical (3) Anxiety: Code(s): F41.9 - Anxiety disorder, unspecified Category: Medical Plan Impression: 79 years old man who has been under stress taking care of his has mild tremor but also significant visual and auditory hallucinations, which were relatively benign but they are becoming more of a problem for him. Also he was noted to be anxious and stressed. These features might suggest onset of dementia, probably of dementia with Lewy body disease. Recommendations: 1. Reassurance and education 2. Sertraline 25 mg in the morning 3. Quetiapine 25 mg at night Medications: New sertraline 25 mg PO DAILY 90 tabs 0RF quetiapine 25 mg orally one at bedtime; 90 tabs 0RF Coding Level of Care Code Est Pt Level 4 (34340) Diagnoses Tremor R25.1 Hallucination R44.3 Anxiety F41.9
--- OUTSIDE RECORDS SUMMARY | 2024-10-09 13:36 | XMS_ITS | Patient Health Record ---
Author Organization [facility] Address [address] [place] [address] Care Team Providers Care Surveillance Systems Analyst Name Role Phone Zaria Barnes Primary Care Provider Marty Cleary Unavailable [phone] Allergies No Known Allergies Reason For Referral [...] MG 2 capsules Orally at hs Active [place] 3 1000 MG 1 capsule Orally Onc [...] Problem Status W/U Status Risk Notes Problem 371156693 Encounter for screening for malignant neoplasm of colon (Z12.11) Active confirmed Problem 508230715 History of adenomatous polyp of colon (Z86.010) Active confirmed Problem Diverticular disease of colon (998909942) Diverticulosis of large intestine without perforation or abscess without bleeding (K57.30) Active confirmed Problem 290321369 Preprocedural examination (Z01.818) Active confirmed Problem 283385894 Aspirin long-ter m use (Z79.82) Active confirmed Plan Of Treatment Future Test Test Name Order Date COLONOSCOPY 04/02/2011 COLONOSCOPY 11/19/2016 COLONOSCOPY 05/14/2022 Insurance Providers Payer Name Payer Address Payer Phone Subscriber Number Group Number Insured Name Patient Relationship to Insured Coverage Start Date Coverage End Date MEDICARE OF [place] [address] [place] [address] [id number] PRISCILLA DISLA Self - patient is the insured [facility] [employer] [address] [place] [address] [id number] PRISCILLA DISLA Self - patient is the insured Medical (General) History Medical History History ICD Code Hyperlipidemia Hypertension IDDM Coronary artery disease with placement of a stent by Dr. Correia--? of [place] prior to that Denies history of stroke, lung disease, nor renal disease Colonoscopy 05/2011--small tu bular adenoma removed, diverticulosis, internal hemorrhoids; he had previous colonoscopies at [facility] Negative colonoscopy in 01/2017 Surgical History Surgery Date(Month/Year) left ear surgery benign breast biopsy
--- OUTSIDE RECORDS SUMMARY | 2024-10-09 13:36 | XMS_ITS | Patient Health Record ---
Author Organization [facility] Address [address] [place] [address] Care Team Providers Care Route Cdl Driver Name Role Phone Elizabeth GARRISON, Zaria Primary Care Provider Unavail able Marquise Kumar Unavailable [phone] Allergies Allergen (clinical drug ingredient) Drug/Non Drug [...] Skin Lesion(s) (L85.1) Active Isosorbide Mononitrate Active [place]-3 Active Multivitamins Active Pravastatin Sodium A ctive [...] Problem Acquired hammer toe of right foot (0622865329942352 ) Other hammer toe(s) (acquired), right foot (M20.41) Active confirmed Response to treatment, Improvemen t Problem Acquired hammer toe of left foot (7548360982248708 ) Other hammer toe(s) (acquired), left foot (M20.42) Active confirmed Response to treatment, Improvemen t Problem Polyneuropathy due to diabetes mellitus type I (813474698) Type 1 diabetes mellitus with diabetic polyneuropathy (E10.42) Active confirmed Vital Signs Blood pressure diastolic 60 mm Hg 07/04/2024 Height 5 ft 6 in in 07/04/2024 Blood pressure systolic 120 mm Hg 07/04/2024 Weight 175 lbs 07/04/2024 BMI 28.24 kg/m2 07/04/2024 Procedures Procedure Date Ordered Date Performed Result Body Sit e 89513-QAGJOUR NAIL, 6 OR MORE 12/28/2023 N/A 64066-EUUX SKIN LESIONS, OVER 4 12/28/2023 N/A 69819-QGGWGDA SKIN/TISSUE 02/01/2024 N/A 31932- Debride <25 sq cm 02/22/2024 N/A 15886-RCAPEKE NAIL, 6 OR MORE 04/04/2024 N/A 01950-TJSD SKIN LESIONS, OVER 4 04/04/2024 N/A 14922-VTFCPRZ NAIL, 6 OR MORE 07/04/2024 N/A 78515-TPGX SKIN LESIONS, OVER 4 07/04/2024 N/A Encounters Encounter Location Date Provider Diagnosis [address] [address] 12/28/2023 Marquise Kumar Type 1 diabetes mellitus with diabetic polyneuropathy E10.42 ; Tinea unguium B35.1 ; Other hammer toe(s) (acquired), right foot M20.41 ; Other hammer toe(s) (acquired), left foot M20.42 and Tinea pedis of both feet B35.[address] [address] 02/01/2024 Marquise Kumar Skin ulcer of toe of left foot with fat layer exposed L97.522 ; Cellulitis of toe of left foot L03.032 and Type 1 diabetes mellitus with diabetic polyneuropathy E10.[address] [address] 02/22/2024 Marquise Kumar Cellulitis of toe of left foot L03.032 ; Skin ulcer of toe of left foot, limited to breakdown of skin L97.521 and Type 1 diabetes mellitus with diabetic polyneuropathy E10.[address] [address] 04/04/2024 Marquise Kumar Type 1 diabetes mellitus with diabetic polyneuropathy E10.42 ; Skin ulcer of toe of left foot, limited to breakdown of skin L97.521 and Tinea unguium B35.[address] [address] 07/04/2024 Marquise Kumar Type 1 diabetes mellitus with diabetic polyneuropathy E10.42 ; Tinea unguium B35.1 ; Other hammer toe(s) (acquired), right foot M20.41 and Other hammer toe(s) (acquired), left foot M20.[address] [address] 02/01/2024 Marquise Kumar Assessments Encounter Date Diagnosis (ICD Code) Assessment Notes Treatment Notes Treatment Clinical Notes Section Notes 12/28/2023 Type 1 diabetes mellitus with diabetic polyneuropathy (ICD-10 - E10.42) 12/28/2023 Tinea unguium (ICD-10 - B35.1) 02/22/2024 Cellulitis of toe of left foot (ICD-10 - L03.032) 02/22/2024 Skin ulcer of toe of left foot, limited to breakdown of skin (ICD-10 - L97.521) Response to treatment Improvement Patient Educated with: WOUND CARE INSTRUCTIONS. pdf (WOUND CARE INSTRUCTIONS. pdf) 07/04/2024 Type 1 diabetes mellitus with diabetic polyneuropathy (ICD-10 - E10.42) 07/04/2024 Tinea unguium (ICD-10 - B35.1) 04/04/2024 Type 1 diabetes mellitus with diabetic [...] E10.42) 04/04/2024 Tinea unguium (ICD-10 - B35.1) 07/04/2024 Other hammer toe(s) (acquired), right foot (ICD-10 - M20.41) Patient Educated with: DIABETIC FOOT CARE INSTRUCTIONS. pdf (DIABETIC FOOT CARE INSTRUCTIONS. pdf) 12/28/2023 Other hammer toe(s) (acquired), right foot (ICD-10 - M20.41) Patient Educated with: DIABETIC FOOT CARE INSTRUCTIONS. pdf (DIABETIC FOOT CARE INSTRUCTIONS. pdf) 02/22/2024 Type 1 diabetes mellitus with diabetic polyneuropathy (ICD-10 - E10.42) 12/28/2023 Other hammer toe(s) (acquired), left foot (ICD-10 - M20.42) 07/04/2024 Other hammer toe(s) (acquired), left foot (ICD-10 - M20.42) 12/28/2023 Tinea pedis of both feet (ICD-10 - B35.3) 02/01/2024 Other 02/22/2024 Other Plan Of Treatment Pending Test Test Name Order Date Hemoglobin A1c 03/05/2015 37155-BHNSJOZ NAIL, 6 OR MORE 03/05/2015 54485-RGWGIEJ NAIL, 6 OR MORE 06/04/2015 05407-KEXNHXX NAIL, 6 OR MORE 12/04/2014 59960-ZOBKJKY NAIL, 6 OR MORE 11/07/2013 77321-AVRZERI NAIL, 6 OR MORE 02/13/2014 48090-RRWVYJR NAIL, 6 OR MORE 05/25/2014 50486-AIFWHVW NAIL, 6 OR MORE 08/24/2014 93199-TFJQCKQ NAIL, 6 OR MORE 02/16/2012 50493-ZHUABRO NAIL, 6 OR MORE 05/03/2012 93313-NXDFPAS NAIL, 6 OR MORE 08/02/2012 06547-HZGMHJT NAIL, 6 OR MORE 11/11/2012 86951-BAEEEHX NAIL, 6 OR MORE 02/14/2013 39769-RHOGWHW NAIL, 6 OR MORE 05/23/2013 31874-CLGIDYS NAIL, 6 OR MORE 08/22/2013 87625-XBGBWDX NAIL, 6 OR MORE 09/03/2015 59515-ASPDUQB NAIL, 6 OR MORE 03/03/2016 23543-HCILXJX NAIL, 6 OR MORE 06/02/2016 30774-OJMDZGT NAIL, 6 OR MORE 09/01/2016 86629-AESSKYT NAIL, 6 OR MORE 12/04/2016 26360-HQCFGDR NAIL, 6 OR MORE 03/09/2017 09804-IDTMWMK NAIL, 6 OR MORE 06/15/2017 54544-EDPLUEY NAIL, 6 OR MORE 09/14/2017 13555-IRMWJFE NAIL, 6 OR MORE 12/21/2017 06975-PMXGRPP NAIL, 6 OR MORE 04/05/2018 49441-NHGGKMJ NAIL, 6 OR MORE 07/05/2018 70680-NQKGKLC NAIL, 6 OR MORE 10/11/2018 22726-ZWMQBIZ NAIL, 6 OR MORE 01/10/2019 75697-SCYVKNN NAIL, 6 OR MORE 04/18/2019 63284-YGOROAZ NAIL, 6 OR MORE 07/21/2019 88867-NJBSUFM NAIL, 6 OR MORE 11/21/2019 16593-YQUMPZY NAIL, 6 OR MORE 02/27/2020 28228-FNKFEGW NAIL, 6 OR MORE 06/25/2020 21629-MDARSJK NAIL, 6 OR MORE 10/01/2020 91090-GIPNVJM NAIL, 6 OR MORE 12/24/2020 00473-OQWLCSX NAIL, 6 OR MORE 03/04/2021 47511-GBSDFLQ NAIL, 6 OR MORE 05/20/2021 61037-HPKWZWT NAIL, 6 OR MORE 07/22/2021 34535-PXZGYJO NAIL, 6 OR MORE 09/23/2021 15784-JDXTTRS NAIL, 6 OR MORE 12/02/2021 85247-ALCCYXE NAIL, 6 OR MORE 02/24/2022 15091-YBMJEPP NAIL, 6 OR MORE 05/12/2022 12343-UYIUJLD NAIL, 6 OR MORE 07/14/2022 01363-DNFRBHX NAIL, 6 OR MORE 09/25/2022 57313-PNGSUKL NAIL, 6 OR MORE 12/22/2022 24874-OVVYZHZ NAIL, 6 OR MORE 03/19/2023 57983-OIDXUAT NAIL, 6 OR MORE 12/03/2015 26180-RRGWIPA NAIL, 6 OR MORE 06/01/2023 03328-IISATKE NAIL, 6 OR MORE 10/05/2023 07769-BNOALUO NAIL, 6 OR MORE 12/28/2023 27529-DMUDYJQ NAIL, 6 OR MORE 04/04/2024 20555-BUKZPTW NAIL, 6 OR MORE 07/04/2024 92221-Fzzf Destruction, -14 08/22/2013 35247-Sjak Destruction, -14 02/14/2013 52185-Ivzx Destruction, -14 05/23/2013 43667-Kutz Destruction, -14 08/24/2014 75162-Rzsk Destruction, -14 05/25/2014 49741-Lmjd Destruction, -14 02/13/2014 90136-Jrhc Destruction, -14 11/07/2013 50625-Zqez Destruction, -14 12/04/2014 43168-Wqlp Destruction, -14 03/05/2015 42979- Debride <25 sq cm 02/22/2024 76349- Debride <25 sq cm 06/23/2022 09042- Debride <25 sq cm 03/10/2022 44551-GZKGYKH SKIN/TISSUE 02/01/2024 88536 I&D ABSCESS- SIMPLE,SINGLE 022 14035-EQLN SKIN LESIONS, OVER 4 02/25/20 22 47402-YNVL SKIN LESIONS, OVER 4 07/15/19 23 69394-ZBPZ SKIN LESIONS, OVER 4 05/12/19 23 03328-GBZQ SKIN LESIONS, OVER 4 12/03/19 16 73324-SFMH SKIN LESIONS, OVER 4 03/19/20 23 36924-PKRE SKIN LESIONS, OVER 4 12/23/19 23 47010-YHSQ SKIN LESIONS, OVER 4 09/26/19 23 04689-JTBE SKIN LESIONS, OVER 4 12/03/19 92163-LASP SKIN LESIONS, OVER 4 09/24/19 22 18042-IYMF SKIN LESIONS, OVER 4 07/23/19 22 39230-YYXC SKIN LESIONS, OVER 4 05/20/19 22 64258-HASE SKIN LESIONS, OVER 4 03/04/20 21 18162-RCIO SKIN LESIONS, OVER 4 12/25/19 21 14557-XYWH SKIN LESIONS, OVER 4 10/02/19 21 37555-GDRS SKIN LESIONS, OVER 4 06/26/19 21 14878-LNEB SKIN LESIONS, OVER 4 12/28/19 24 86278-TJLW SKIN LESIONS, OVER 4 10/05/19 24 03811-UJXF SKIN LESIONS, OVER 4 06/01/19 24 70839-OCET SKIN LESIONS, OVER 4 07/05/19 25 95547-LNLD SKIN LESIONS, OVER 4 04/04/19 25 40013-DOVR SKIN LESIONS, OVER 4 12/05/19 15 58633-QVWU SKIN LESIONS, OVER 4 06/04/19 16 46003-NZZY SKIN LESIONS, OVER 4 03/05/20 15 07447-JXIK SKIN LESIONS, OVER 4 02/14/20 14 33430-RBAI SKIN LESIONS, OVER 4 05/25/19 15 53793-VXAX SKIN LESIONS, OVER 4 08/25/19 15 42316-TYTR SKIN LESIONS, OVER 4 02/27/20 20 06823-UAFA SKIN LESIONS, OVER 4 11/21/19 20 74855-BCZG SKIN LESIONS, OVER 4 07/21/19 20 55184-PLUA SKIN LESIONS, OVER 4 04/18/19 20 84969-UEDJ SKIN LESIONS, OVER 4 01/11/20 19 45341-MBSM SKIN LESIONS, OVER 4 10/12/19 19 55911-ESFU SKIN LESIONS, OVER 4 07/06/19 19 27962-JGIM SKIN LESIONS, OVER 4 04/05/19 19 91916-BASQ SKIN LESIONS, OVER 4 12/22/19 18 08537-MVFC SKIN LESIONS, OVER 4 09/15/19 18 55876-XDQV SKIN LESIONS, OVER 4 06/16/19 18 25051-ABKS SKIN LESIONS, OVER 4 03/09/20 17 72772-JJWR SKIN LESIONS, OVER 4 12/05/19 17 89827-YBIY SKIN LESIONS, OVER 4 06/03/19 17 43627-XTJA SKIN LESIONS, OVER 4 09/02/19 17 48459-VPBU SKIN LESIONS, OVER 4 03/03/20 16 14460-LBYX SKIN LESIONS, OVER 4 09/03/19 16 48642-GAPR SKIN LESIONS, 2 TO 4 11/08/19 14 65591-YGAM SKIN LESIONS, 2 TO 4 02/16/20 12 30057-FQVI SKIN LESIONS, 2 TO 4 11/12/19 13 32903-ESLW SKIN LESIONS, 2 TO 4 02/15/20 13 75432-SMYU SKIN LESIONS, 2 TO 4 08/23/19 14 28416-YVBZ SKIN LESIONS, 2 TO 4 05/23/19 14 71152-HSLO SKIN LESIONS, 2 TO 4 08/03/19 13 79497-QETW SKIN LESIONS, 2 TO 4 05/03/19 13 73035-CXCV SKIN LESIONS, 2 TO 4 12/31/19 11 49423-EAJV SKIN LESIONS, 2 TO 4 05/12/19 12 W9374-MGHSWVIJ DYSTROPHIC NAILS ANY # I2042-FYUBVQQL DYSTROPHIC NAILS ANY # Next Appt Details Provider Name:Marquise Kumar , 10/10/2024 03:15:00 PM, [address] [facility], [place], [address], Insurance Providers Payer Name Payer Address Payer Phone Subscriber Number Group Number Insured Name Patient Relationship to Insured Coverage Start Date Coverage End Date Medicare National [employer] [address] [place] [phone] [id number] Shane Bueno Self - patient is the insured [facility] [address] [place] [address] [id number] Shane Bueno Self - patient is the insured Medical (General) History Medical History History ICD Code chicken pox back, hip, knee pain cholesterol hypertension type II diabetes Multiple sclerosis Surgical History Surgery Date(Month/Year) ear surgery heart surgery stent insertion 2008 Hospitalization History Reason Date(Month/Year) [facility]- toe issues 01/28/24
== END 2024-10-09 13:14 | disposition home or self-care (01) ==
LOC: HO.HSM 12:43
PROVIDERS: PCP Internal Medicine; Visit Provider Psychiatry & Neurology Neurology
DX: R25.1 Tremor, unspecified (principal); R44.3 Hallucinations, unspecified; F41.9 Anxiety disorder, unspecified
CPT/HCPCS: 99214

== ENCOUNTER → 2024-10-09 12:43 | Outpatient (BNVA) | payer MEDICARE, OTHER, SELFPAY | PROVIDERS: PCP Internal Medicine; Visit Provider Psychiatry & Neurology Neurology | DX: R44.0 Auditory hallucinations (principal); R44.1 Visual hallucinations; F41.9 Anxiety disorder, unspecified; R25.1 Tremor, unspecified; Z79.899 Other long term (current) drug therapy | CPT/HCPCS: 99212 ==

== ENCOUNTER 2024-10-12 06:41 | Outpatient (REF) | payer MEDICARE, OTHER, SELFPAY ==
--- OUTSIDE RECORDS SUMMARY | 2024-10-10 11:15 | XMS_ITS ---
[facility] Address [address] [place] [address] Care Team Providers Care Belt Builder Helper Name Role Phone Elizabeth GARRISON, Zaria Primary Care Provider Unavail able Marquise Kumar Unavailable [phone] Allergies Allergen (clinical drug ingredient) Drug/Non Drug Allergy documented on EMR Reaction Allergy Type Onset Date Status Shrimp Flavor swelling, itch Drug Allergy Active Shellfish (FN) Shellfish-derived Products swelling, itch Drug Allergy Active REASON FOR VISIT At Risk Footcare, Toe Irritation Medications Medication SIG (Take, Route, Frequency, Duration) Notes Start Date End Date Status Fish Oil Active Gabapentin Active Isosorbide Mononitrate Active Lisinopril 40 MG Orally Act samara HumaLOG Active Baby Aspirin Active Benicar Active Extra Depth Orthopedic Shoes (1 Pair) with Customized Heat Molded Multidensity Innersoles (3 Pair) as directed Dx: IDDM/Polyneuropathy (E10.42), Hammertoe Foot Deformity (M20.41,M20.42), Preulcerative Skin Lesion(s) (L85.1) Active Vit Balanced B-100 A ctive Ciclopirox Olamine 0.77 % 1 application Externally Twice a day; Duration: 30 days Active Tylenol Active Plavix Active Pravastatin Sodium A ctive Trulicity Active Toujeo SoloStar Acti ve Multivitamins Active Sodus-3 Active Social History Tobacco Use: Social History [...] Signs Height 5 ft 6 in in 10/10/2024 Weight 175 lbs 10/10/2024 BMI 28.24 kg/m2 10/10/2024 Blood pressure systolic 128 mm Hg 10/11/19 25 Blood pressure diastolic 65 mm Hg 025 Procedures Procedure Date Ordered Date Performed Result Body Sit e 31178-FRZYCLY NAIL, 6 OR MORE 10/10/2024 N/A 72451-ZTSE SKIN LESIONS, OVER 4 10/10/2024 N/A Encounters Encounter Location Date Provider Diagnosis [facility] [address] [address] 10/10/2024 Marquise Kumar Type 1 diabetes mellitus with diabetic polyneuropathy E10.42 and Tinea unguium B35.1 Assessments Encounter Date Diagnosis (ICD Code) Assessment Notes Treatment Notes Treatment Clinical Notes Section Notes 10/10/2024 Type 1 diabetes mellitus with diabetic polyneuropathy (ICD-10 - E10.42) 10/10/2024 Tinea unguium (ICD-10 - B35.1) Plan Of Treatment Pending Test Test Name Order Date 43260-BPWCINC NAIL, 6 OR MORE 10/10/2024 81481-YPAS SKIN LESIONS, OVER 4 10/11/19 25 Next Appt Details Follow Up: prn, Reason: Provider Name:Marquise Kumar , 01/05/2025 01:30:00 PM, [address] [place] [address], [phone], Procedure Notes * Category Sub-Category Detail Notes [...] use of a nail nipper and/or dremel-type grinder and honer operator automatic, to a more viable healthy nail plate [...] to maintain effectiveness in symptomatic relief - 54979 Keratoma Treatment Parring or Cutting o f [...] instrumentation by the physician of record - 08037 Progress Notes * Jarek MESAoDOB: (79 yo M)Acc No.[id number]:10/10/2024 Progress Note Patient: Guzman UNRULYGONSALOShane MARIE Provider: Nieves Kumar DPM :1945 A ge:79 Y S ex:Male Date:10/10/2024 Address:[address], [facility], [place] Pcp:Zaria Johnson MD Subjective: * Chief Complaints: * A t Risk FootcareToe Irritation * HPI: A t Risk footcare: Pt States Last PCP Visit: D ate 0 06/12/2024 T oe pain: Treatments: R x shoes, states delivery pending - 10/16. * ROS: G eneral/Constitutional: Nausea d enies. V omiting d enies. H sunday Thirst d enies. L oss appetite d enies. C hills d enies. F atigue d enies.?Fever d enies. N ight Sweats d enies. U nexplained weight loss d enies. O phthalmologic: Blurred vision d enies. R ed eye d enies. ? H EENTM: Dentures d enies. D izziness d enies. G lasses/contacts a dmits. R etinopathy d enies. B lurred/double vision d enies. T MJ?denies. D ischarge/drainage d enies. I mplants d enies. H harsh of hearing denies. D ifficulty chewing/swallowing/speaking d enies. N ose bleeds d enies.?Sore mouth d enies. S wollen glands d enies. R espiratory: On Oxygen d enies. P neumonia/pleurisy d enies.?Bronchitis d enies. E mphysema d enies. C oughing d enies. C ough blood?denies. S hortness of breath d enies. W heezing d enies. C ardiovascular: Pacemaker d enies. M FLOTATION TENDER d enies. W PW d enies. C HF d enies. H eart attack d enies. S eptal defect d enies. R apid beat d enies. C hest pain d enies. A trial Fib. d enies. M urmur/Palpitations d enies. G astrointestinal: Hemorrhoids d enies. S tomach/Abdominal pain d enies. D ark blood stool d enies. I rritable bowel d enies. C onstipation d enies. D iarrhea d enies. V omiting d enies. H ematology: Swelling d enies. B ruising admits, on aspirin. B leeding problem admits, on anticoagulants. G enitourinary: Blood urine d enies. F requent/Painfu/urination/bladder control d enies. K idney stones d enies. I nfection (UTI) d enies. N ephropathy d enies. M usculoskeletal: Hammertoes a dmits. B unions d enies. S coliosis/kyphosis d enies. M uscle cramps / walking d enies. G eneralized aches and pains?denies. W eakness d enies. I nteg.: Gil d enies. S cars d enies. C orns/calluses?admits. I ngrown nails a dmits. P ainful nails d enies. R ashes d enies. N eurologic: Difficulty sleeping d enies. B ipolar d enies. B rain disorder d enies. B alance trouble a dmits. C onfusion d enies. F ainting/blackouts d enies. H eadache d enies. T remors d enies. * Medical History: * Surgical History: e ar surgery heart surgery stent insertion 2008 * Hospitalization/Major Diagno stic Procedure: [facility]- toe issues 01/28/24 * Family History: M other: , diagnosed with Diabetic - NIDDM, Family history of arthritis. F ather: , diagnosed with Unspecified heart disease. S iblings: heart attack, stroke. 2 son(s) , 1 daughter(s) . . * Social History: T obacco Use: T obacco use other than smoking A re you an other tobacco user? N o Tobacco Control (Standard) T obacco use: N onsmoker A dditional Findings: Tobacco non-user C urrent nonsmoker D rugs/Alcohol: D rugs H ave you used drugs other than those for medical reasons in the past 12 months? N o M iscellaneous: C affeine: 1-2 cups per day. Exercise: no. Occupation: Retired. D rug/Alcohol: A ALEXANDER-C (Standard) D id you have a drink containing alcohol in the past year? N o P oints 0 I nterpretation N egative * Medications: T akingBaby Aspirin Benicar Fish Oil Gabapentin HumaLOG Isosorbide Mononitrate Lisinopril 40 MG Tablet Orally Multivitamins Sodus-3 Plavix Pravastatin Sodium Trulicity Toujeo SoloStar Tylenol [...] 40 MG Tablet Orally Taking Multivitamins Taking Sodus-3 Taking Plavix Taking Pravastatin Sodium Taking Trulicity [...] reviewed and reconciled with the patient * Allergies: S hrimp Flavor: swelling, itchShellfish-derived Products: swelling, itchyes[Allergies Verified] Objective: * Vitals: H t: 5 ft 6 in, Wt:175, BMI: 28.24, Shoe size:9, BP:128/65mm Hg, BS:101, Wt-k.38 kg. * P ast Orders: L ab:HEMOGLOBIN A1C (GLYCOHEMOGLOBIN) (Order Date - 05/01/2024) (Collection Date & Time - 10/10/2024 03:03 PM) Value Reference Range HEMOGLOBIN A1C % (HH) 6.4 * Examination: O phthalmology Referral: DIABETES EYE EXAM P rocedure Performed: Y debbie Bonilla ate of Exam Performed 0 06/12/2024 D iabetic Retinopathy Screening: Y debbie R etinal Screening Performed: Y debbie F indings of Diabetic Eye Exam: n o retinopathy N eurological: SENSORY: N eurological exam demonstrates a loss of protective sensation as demonstrated by an absence of tested sensitivity to 5.07 Skippack-Tanesha monofilament at 2 or more sites out of 5 to either foot. N ails: NAILS are: E longated, overgrown, dystrophic, lytic, greater than 3mm thick, discolored and friable with crumbly malodorous subungual debris, TA, T1, T2, T3, T4, T5, T6, T7, T8, T9. D ermatologic: SKIN FINDINGS: S kin exam reveals Keratotic lesion(s) located at, Plantar, IPJ, TA, Medial plantar, IPJ, T5, Dorsal, PIPJ, T9, SUB MTH (s), 1, B/L , Plantar, Heel(s) , B/L . Assessment: * Assessment: 1. T ype 1 diabetes mellitus with diabetic polyneuropathy - E10.42 (Primary) 2 . T inea unguium - B35.1 Plan: * Treatment: * Procedures: D ebride Nail 6-10: Nail debridement D ue to the clinical pathology outlined in the [...] the use of a nail nipper and/or dremel- type grinder and honer operator automatic, to a more viable healthy nail plate [...] to maintain effectiveness in symptomatic relief - 56389. K eratoma Treatment: Parring or Cutting of Benign Hyperkeratotic Lesion(s) ( -57) More than 4 Lesions - Due to [...] instrumentation by the physician of record - 02736. * Procedure Codes: 1 1721 DEBRIDE NAIL, 6 OR MORE, Modifiers: XS 29162 TRIM SKIN LESIONS, OVER 4, Modifiers: XS * Follow Up: p rn * Images: * Sign off status: Completed true * Provider: Nieves Kumar DPM Date: 10/10/2024 Generated for Ileana ambriz/Jose Manuel/Luna on: 10/12/2024 06:43 AM EDT History and Physical Notes * HPI (History of Present Illness) Category Sub-Category Detail Notes Category Not es Toe pain Treatments: Rx shoes, states delivery pending - 10/16 At Risk footcare Pt States Last PCP Visit: Date: Examination Category Sub-Category Detail Notes Category Not es Neurological SENSORY: Neurological exa m demonstrates a loss of protective sensation as demonstrated by an absence of tested sensitivity to 5.07 Skippack-Tanesha monofilament at 2 or more sites out of 5 to either foot Dermatologic SKIN FINDINGS: Skin exam reveal s Keratotic lesion(s) located at, Plantar, IPJ, TA, Medial plantar, IPJ, T5, Dorsal, PIPJ, T9, SUB MTH (s), 1, B/L , Plantar, Heel(s) , B/L Ophthalmology Referral DIABETES EYE EXAM Procedu re Performed:: Yes Date of Exam Performed: 06/12/2024 Diabetic Retinopathy Screening:: Yes Retinal Screening Performed:: Yes Findings of Diabetic Eye Exam:: no retin opathy Nails NAILS are: Elongated, overg rown, dystrophic, lytic, greater than 3mm thick, discolored and friable with crumbly malodorous subungual debris, TA, T1, T2, T3, T4, T5, T6, T7, T8, T9
--- OUTSIDE RECORDS SUMMARY | 2024-10-12 06:43 | XMS_ITS | Patient Health Record ---
Author Organization [facility] Address [address] [place] [address] Care Team Providers Care Telephone Advice Nurse Name Role Phone Zaria Barnes Primary Care Provider Marty Cleary Unavailable [phone] Allergies No Known Allergies Reason For Referral [...] MG 2 capsules Orally at hs Active Independence 3 1000 MG 1 capsule Orally Onc [...] Problem Status W/U Status Risk Notes Problem 002062237 Encounter for screening for malignant neoplasm of colon (Z12.11) Active confirmed Problem 484377095 History of adenomatous polyp of colon (Z86.010) Active confirmed Problem Diverticular disease of colon (067867196) Diverticulosis of large intestine without perforation or abscess without bleeding (K57.30) Active confirmed Problem 463668511 Preprocedural examination (Z01.818) Active confirmed Problem 929691686 Aspirin long-ter m use (Z79.82) Active confirmed Plan Of Treatment Future Test Test Name Order Date COLONOSCOPY 04/02/2011 COLONOSCOPY 11/19/2016 COLONOSCOPY 05/14/2022 Insurance Providers Payer Name Payer Address Payer Phone Subscriber Number Group Number Insured Name Patient Relationship to Insured Coverage Start Date Coverage End Date MEDICARE OF [place] [address] [place] [address] [id number] PRISCILLA DISLA Self - patient is the insured [employer] [address] [place] [address] [id number] PRISCILLA DISLA Self - patient is the insured Medical (General) History Medical History History ICD Code Hyperlipidemia Hypertension IDDM Coronary artery disease with placement of a stent by Dr. Correia--? of [place] prior to that Denies history of stroke, lung disease, nor renal disease Colonoscopy 05/2011--small tu bular adenoma removed, diverticulosis, internal hemorrhoids; he had previous colonoscopies at [facility] Negative colonoscopy in 01/2017 Surgical History Surgery Date(Month/Year) left ear surgery benign breast biopsy
[2024-10-12 07:12] LABS: MANUAL DIFF FLAG NO
[2024-10-12 07:34] LABS: Hematocrit 42.8 % (42.0-52.0); Hemoglobin 14.2 g/dl (14.0-18.0); Imm Gran Abs Auto 0.04 X10*3/uL (0.00-0.03); Imm Gran Pct Auto 0.5 % (0.0-0.4); Lymphocytes Absolute Auto 2.0 X10*3/uL (1.2-4.9); Mean Corpuscular HGB Conc 33.2 g/dl (31.0-36.0); Mean Corpuscular Hemoglobin 27.4 pg (27.0-33.0); Mean Corpuscular Volume 82.6 fL (80.0-98.0); NRBC Abs Auto 0.000 X10*3/uL (0.0-0.012); NRBC Pct Auto 0.0 /100WBC (0.0-0.2); Platelet Count 255 X10*3/uL (160-400); Red Blood Count 5.18 X10*6/uL (4.60-5.80); White Blood Count 8.6 X10*3/uL (4.8-10.8)
[2024-10-12 08:07] LABS: Parathyroid Hormone Intact 73.7 pg/mL (8.7-77.1)
[2024-10-12 08:10] LABS: Alanine Aminotransferase 12 U/L (0-40); Albumin Level 4.0 g/dL (3.5-5.0); Alkaline Phosphatase 65 U/L (39-117); Anion Gap 9 (12-20); Aspartate Amino Transferase 24 U/L (5-37); Blood Urea Nitrogen 21 mg/dL (9-16); Calcium 9.6 mg/dL (8.4-10.2); Carbon Dioxide 29 mmol/L (22-29); Chloride 106 mmol/L (96-108); Cholesterol 127 mg/dL (<200); Estimated Glomerular Filt Rate > 60; HDL Cholesterol 47 mg/dL (>40); Iron 66 mcg/dL (45-160); Percent Iron Saturation 32 % (15-50); Potassium 3.9 mmol/L (3.3-5.1); Sodium 140 mmol/L (135-145); Total Iron Binding Capacity 205 mcg/dL (228-428); Total Protein 7.0 g/dL (6.5-8.0); Triglycerides 54 mg/dL (<150); Unsaturated Iron Binding 139 ug/dL
[2024-10-12 08:29] LABS: Thyroid Stimulating Hormone 3.52 uIU/mL (0.32-4.0)
[2024-10-12 08:38] LABS: Folate 15.5 ng/mL (> or = 4.0); Vitamin B12 > 2000 pg/mL (200-900)
[2024-10-13 15:18] LABS: Calcium, Ionized 5.6 mg/dL (4.7-5.5)
== END 2024-10-12 06:42 | disposition home or self-care (01) ==
LOC: HO.LAB 06:41
PROVIDERS: PCP Internal Medicine; Visit Provider Internal Medicine
DX: E53.8 Deficiency of other specified B group vitamins (principal); G25.2 Other specified forms of tremor; D64.9 Anemia, unspecified; E55.9 Vitamin D deficiency, unspecified; E78.5 Hyperlipidemia, unspecified; E21.3 Hyperparathyroidism, unspecified
CPT/HCPCS: 36415; 80053; 80061; 82306; 82330; 82607; 82746; 83540; 83970; 84100; 84443; 85025

== ENCOUNTER 2025-02-01 13:54 | Outpatient (AMB) | payer MEDICARE, OTHER, SELFPAY ==
--- OUTSIDE RECORDS SUMMARY | 2023-08-17 10:00 | XMS_ITS ---
Author Organization [facility] Address [address] [place] [address] Care Team Providers Care Steam Trap Man Name Role Phone Elizabeth GARRISON, Zaria Primary Care Provider Unavail Marquise Damico Unavailable [phone] Payne Encounters Encounter Location Date Provider Diagnosis [address] [address] 08/17/2023 Marquise Kumar Plan Of Treatment Next Appt Details Provider Name:Marquise Kumar , 03/09/2025 01:00:00 PM, [address] [place], [address], Progress Notes * Jarek MESAoDOB: (79 yo M)Acc No.[id number]:08/17/2023 Progress Note Patient: Guzman KONGFRANK Shane Provider: Nieves Kumar DPM :1945 A ge:77 Y S ex:Male Date:08/17/2023 Address:[address], [id number] Pcp:Zaria Johnson MD Subjective: * Chief Complaints: * [address] Payne[address] * Medical History: Objective: * Vitals: Assessment: Plan: * Treatment: * Images: * The named appointment provid er may or may not be the originator of this progress note, and it is not deemed complete until electronically signed by the appointment provider. Sign off status: Pending * Provider: Nieves Kumar DPM Date: 0 08/17/2023 Generated for Ileana ambriz/Jose Manuel/Luna on: 04/03/2024 04:54 PM EST
--- OUTSIDE RECORDS SUMMARY | 2025-01-05 08:30 | XMS_ITS ---
Author Organization [facility] Address [address] [place] [address] Care Team Providers Care Glazier Stained Glass Name Role Phone Elizabeth GARRISON, Zaria Primary Care Provider Unavail Marquise Damico Unavailable [phone] Payne Encounters Encounter Location Date Provider Diagnosis [address] [address] 01/05/2025 Marquise Kumar Plan Of Treatment Next Appt Details Provider Name:Marquise Kumar , 03/09/2025 01:00:00 PM, [address] [place], [address], Progress Notes * Jarek MESAoDOB: (79 yo M)Acc No.[id number]:01/05/2025 Progress Note Patient: Guzman KONGFRANK Shane Provider: Nieves Kumar DPM :1945 A ge:79 Y S ex:Male Date:01/05/2025 Address:[address], [place] Pcp:Zaria Johnson MD Subjective: * Chief [...] Pending * Provider: Nieves Kumar DPM Date: 1 Generated for Ileana ambriz/Jose Manuel/Luna on: 04/03/2024 04:55 PM EST
--- NOTE | 2025-02-01 14:01 | A.OFFPC_ITS ---
Vital Signs 02/01/25 14:03 Height 5 ft 6 in Weight 167 lb 6 oz BMI 27.0 BP 142/66 H Blood Pressure Location Lt brachial Position Sitting Pulse 59 Pulse Source Pulse Oximeter Temp 97.1 F Temp Source Temporal Artery Scan Pulse Oximetry (%) 100 Oxygen Delivery Method Room Air Intake Visit Reasons: 4 months - see comments Intake Note: Patient is here to follow up on DM, Hyperparathyroidism, Chronic pain . Roving Hand Required: No Apprentice Cook: Not Required per policy Accompanied by: Self / Same As Patient Allergies No Known Allergies Allergy (Verified 02/01/25 14:27) Medication List - Last Reconciled 02/01/25 by Zaria Page MD ascorbic acid (vitamin C) (Vitamin C) 500 mg PO DAILY aspirin 81 mg PO DAILY 30 days blood sugar diagnostic As directed blood sugar diagnostic (OneTouch Verio test strips) 3 times a day blood-glucose meter (BlackJetTouch Verio Reflect kit) As directed [diabetic shoes As directed] gabapentin 200 mg (2 x 100 mg) PO BEDTIME insulin aspart (niacinamide) 100 unit/mL (3 mL) (Fiasp FlexTouch U-100 Insulin) 10 units subcut TID 30 days insulin degludec (Tresiba FlexTouch U-100 insulin) 32 units (0.32 mL) subcut DAILY 30 days isosorbide mononitrate ER 60 mg PO DAILY lancets As directed lancets (OneTouch Delica Lancets) 3 times a day lisinopril 40 mg PO DAILY multivitamin 1 tab PO DAILY omega-3 fatty acids-fish oil 340-1,000 mg 1 cap PO DAILY pen needle, diabetic 5 times a day pravastatin 80 mg PO BEDTIME 90 days quetiapine 25 mg orally one at bedtime; sertraline 25 mg PO DAILY tirzepatide 5 mg (0.5 mL) subcut QWEEK 4 weeks vitamin B complex 1 tab PO DAILY Tobacco use date assessed: 02/01/25 Fall risk assessment: No Falls in past year Last assessed Fall Risk: 02/01/25 Dental Screening Dental Screen Date: 05/31/24 HPI HPI Comments History of Present Illness Details The patient is a 79-year-old male presenting for a follow-up visit for chronic condition management, medication review, and vaccinations. He denies any medication allergies. His current medications include vitamin C, aspirin 81 mg, gabapentin at night, insulin 10 units three times a day, Tresiba 32 units once a day, isosorbide, lisinopril 40 mg, multivitamins, omega-3, pravastatin, Seroquel, sertraline, and Mounjaro. The patient's history is significant for controlled depression, for which he takes sertraline. He has diabetes, and although his blood sugar is reported as very good, there is a possibility of increasing his Mounjaro dose to 7.5 mg. For hypertension, he reports a past reading over 200, but states his blood pressure has been low all this week. He also has a history of hyperlipidemia, and his last cholesterol, thyroid, and parathyroid labs were noted to be very good. Diabetes well controlled with an A1c of 6% today. [facility] Medical History (Updated 02/01/25 @ 15:12 by Zaria Page MD) Stress Parkinsonism, secondary Hallucination Diabetes mellitus with hyperglycemia, with long-term current use of insulin Hyperparathyroidism Diabetic angiopathy Peripheral vascular disease due to secondary diabetes Psychosis Multiple sclerosis Myocardial infarct, old Thyroid nodule Diabetes mellitus Lumbar degenerative disc disease Diabetic polyneuropathy associated with type 2 diabetes mellitus Proliferative diabetic retinopathy Hypertension Dyslipidemia group home (current) use of insulin Diabetes type 2, uncontrolled Long-term use of aspirin therapy Surgical History Hx of colonoscopy Hx of heart artery stent Family History Father No problems noted. Mother Diabetes Social History Housing: Apartment Alcohol intake: never Patient Tobacco Use Status: Never used Tobacco e-Cigarette/Vaping Use: Never Used Second Hand Smoke Exposure: No service: No Current occupational status: disabled Cognitive needs: No Hearing needs: No Vision needs: Yes Questionnaire Thrive Questionnaire Date Thrive assessed: 08/14/24 I am a: Patient What is your living situation today?: I have a steady place to live Within the past 12 months, did the food you bought not last and you didn't have the money to get more?: Never true Within the past 12 months, did you worry whether your food would run out before you got money to buy more?: Never true Do you have trouble paying for medicines?: No Do you have trouble getting transportation to medical appointments?: No Do you have trouble paying your heating and electricity bill?: No Do you have trouble taking care of your child, family member or friend?: No Do you have trouble with day-to-day activities such as bathing, preparing meals, shopping, managing finances, etc.?: No Are you currently unemployed and looking for a job?: No Are you interested in more education?: No Please select the resources that you would like help with: None Currently or been in a relationship where the following occur: No concerns reported THRIVE Score: 0 RAVI-7 AMB Questionnaire RAVI-7 Date RAVI - 7 assessed: 05/31/24 Source: Developed by Drs. Marty Bellamy, Sahra Walker, Bryan Jamison and colleagues, with an educational nahomi from [employer]. Review of Systems Const All systems reviewed & are unremarkable except as noted in HPI and below Card Denies chest pain at rest, Denies chest pain with activity, Denies edema, Denies irregular heart rhythm, Denies claudication, Denies dyspnea, Denies dyspnea on exertion, Denies orthopnea, Denies paroxysmal nocturnal dyspnea and Denies slow heart rate Resp Denies cough, Denies dyspnea and Denies dyspnea on exertion GI Denies abdominal pain, Denies change in bowel habits, Denies excessive flatus, Denies nausea and Denies vomiting Denies urinary hesitancy, Denies urinary incontinence and Denies urinary urgency Physical exam (Primary Care) Vital Signs: Last Vital Signs Temp 97.1 F 02/01/25 14:03 Pulse 59 02/01/25 14:03 BP 142/66 H 02/01/25 14:03 Pulse Ox 100 02/01/25 14:03 Oxygen Delivery Method Room Air 02/01/25 14:03 BMI result Body Mass Index 27.0 Tobacco/Smoking Status: Tobacco use Status Tobacco use date assessed 02/01/25 02/01/25 14:11 Patient Tobacco Use Status Never used Tobacco 02/01/25 14:11 e-Cigarette/Vaping Use Never Used 02/01/25 14:11 Thrive Assessment: Date of Thrive Assessment Date Thrive assessed 08/14/24 02/01/25 14:11 Currently or been in a relationship where the following occur: No concerns reported Resp Effort & Inspection: normal respiratory effort Auscultation: clear to auscultation bilaterally Cardio Jugular venous distension: no JVD Rate: regular rate Rhythm: regular rhythm Heart sounds: S1 normal heart sound present and S2 normal heart sound present Extrem General: Yes full ROM Office Procedures Flu Questionnaire Does the patient have a severe egg allergy?: No Does the patient have severe life threatening allergies?: No Does the patient have a fever or illness today?: No Has the patient ever had Guillain-[place] Syndrome?: No Has the patient ever had any past reaction to a flu shot?: No Results AMB Hemoglobin A1c AMB Hemoglobin A1c 6.0 % Last Edit by BOBBY Daniels on 02/01/25 14:21 Immunizations Fluarix [id number] (PF) 45 mcg (15 mcg x 3)/0.5 mL IM syringe Performing Provider: Zaria Page MD Performing Location: [facility] Administered by: Lourdes Lenz CMA on 02/01/25 14:42 Dose Route Admin Location Dispensed Lot Number Expiration Date [facility] Edge Grinder 0.5 mL IM Left Deltoid 0.5 mL [id number] 09/25/25 [id number] [employer] VIS Given Date VIS Provided VIS Publication Date 02/01/25 Single Vaccine 24 Eligibility Eligibility Date Funding Source Not VFC Eligible 02/01/25 Private pneumoc 20-bernardo conj-dip cr(PF) 0.5 mL IM syringe Performing Provider: Zaria Page MD Performing Location: [facility] Administered by: Lourdes Lenz CMA on 02/01/25 14:42 Dose Route Admin Location Dispensed Lot Number Expiration Date [employer] Edge Grinder 0.5 mL IM Right Deltoid 0.5 mL [id number] 11/27/25 [employer] Total Dispensed Waste 0.5 mL 0 % VIS Given Date VIS Provided VIS Publication Date 02/01/25 Single Vaccine 24 Eligibility Eligibility Date Funding Source Not VFC Eligible 02/01/25 Private Results Reviewed Results Reviewed: Laboratory Last Values Hgb A1c (Clinic) 6.0 % (4.0-6.0) 02/01/25 14:00 Coding Level of Care Code Est Pt Level 4 (41029) Complex EM visit Add On G2211 Diagnoses 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 Essential hypertension I10 Hypertension type: essential hypertension Dyslipidemia E78.5 Type 2 diabetes mellitus with other specified complication, with long-term current use of insulin E11.69; Z79.4 Diabetes mellitus complication status: with other specified complication Diabetes mellitus long term care pharmacist insulin use: with long term care pharmacist use Diabetes mellitus type: type 2 Time Spent (min) 23 Assessment & Plan Assessment & Plan (1) Mild recurrent major depression: Code(s): F33.0 - Major depressive disorder, recurrent, mild Category: Medical (2) Hypertension: Code(s): I10 - Essential (primary) hypertension Category: Medical Qualifiers: Hypertension type: essential hypertension Qualified Code(s): I10 - Essential (primary) hypertension (3) Dyslipidemia: Code(s): E78.5 - Hyperlipidemia, unspecified Category: Medical (4) Diabetes mellitus: Code(s): E11.9 - Type 2 diabetes mellitus without complications Category: Medical Qualifiers: Diabetes mellitus complication status: with other specified complication Diabetes mellitus correction insulin use: with correction use Diabetes mellitus type: type 2 Qualified Code(s): E11.69 - Type 2 diabetes mellitus with other specified complication; Z79.4 - intermediate manager (current) use of insulin Plan Plan 1. Depression The patient's depression is noted to be controlled. Continue current management with sertraline. 2. Diabetes Mellitus The patient's blood sugar is reported to be very good on his current regimen, which includes Mounjaro. While the dose is low, an increase to 7.5 mg will be considered if necessary. New laboratory tests will be ordered to be completed within the next 4 months. 3. Hypertension The patient reports his blood pressure has been low recently, though he has had high readings in the past. Anxiety is noted as a potential factor for elevated blood pressure. A follow-up appointment is scheduled in two weeks to recheck his blood pressure. 4. Hyperlipidemia The patient's cholesterol was reported as excellent on his last labs. Continue current treatment with pravastatin. Routine labs will be ordered for the next 4 months. 5. Preventive Care The influenza vaccine will be administered during today's visit. The patient also needs a pneumonia vaccine. Lab work will be ordered for monitoring over the next 4 months. Orders: Orders Pneumococcal 20 Immunization Today Z23 - Encounter for immunization Influenza 7068-6592 Immunization Today Z23 - Encounter for immunization AMB Hemoglobin A1c Today E11.69 - Type 2 diabetes mellitus with other specified complication, Z79.4 - intermediate manager (current) use of insulin Medications: New tirzepatide (Mounjaro) 7.5 mg (0.5 mL) subcut QWEEK 2 mL 0RF 4 weeks E11.69 - Type 2 diabetes mellitus with other specified complication, Z79.4 - intermediate manager (current) use of insulin
[2025-02-01 14:03] VITALS: BP 142/66; PULSE 59; TEMP 36.2; O2SAT 100; BMI 27.0
--- OUTSIDE RECORDS SUMMARY | 2025-02-01 16:55 | XMS_ITS | Patient Health Record ---
Author Organization [facility] Address [address] [place] [address] Care Team Providers Care Position Clerk Name Role Phone Zaria Barnes Primary Care Provider Marty Cleary Unavailable [phone] Allergies No Known Allergies Reason For Referral [...] MG 2 capsules Orally at hs Active [place] 3 1000 MG 1 capsule Orally Onc [...] Problem Status W/U Status Risk Notes Problem Screening for malignant neoplasm of colon (808288796) Encounter for screening for malignant neoplasm of colon (Z12.11) Active confirmed Problem History of adenomatous polyp of colon (552228395) History of adenomatous polyp of colon (Z86.010) Active confirmed Problem Diverticular disease of colon (837449264) Diverticulosis of large intestine without perforation or abscess without bleeding (K57.30) Active confirmed Problem Preprocedural examination (908280438039683) Preprocedural examination (Z01.818) Active confirmed Problem Long-term current use of aspirin (743606653302786) Aspirin long-term use (Z79.82) Active confirmed Plan Of Treatment Future Test Test Name Order Date COLONOSCOPY 04/02/2011 COLONOSCOPY 11/19/2016 COLONOSCOPY 05/14/2022 Insurance Providers Payer Name Payer Address Payer Phone Subscriber Number Group Number Insured Name Patient Relationship to Insured Coverage Start Date Coverage End Date MEDICARE OF [place] [address] [place] [address] [id number] PRISCILLA DISLA Self - patient is the insured [facility] [address] [place] [address] [id number] PRISCILLA DISLA Self - patient is the insured Medical (General) History Medical History History ICD Code Hyperlipidemia Hypertension IDDM Coronary artery disease with placement of a stent by Dr. Correia--? of [place] prior to that Denies history of stroke, lung disease, nor renal disease Colonoscopy 05/2011--small tu bular adenoma removed, diverticulosis, internal hemorrhoids; he had previous colonoscopies at [facility] Negative colonoscopy in 01/2017 Surgical History Surgery Date(Month/Year) left ear surgery benign breast biopsy
--- OUTSIDE RECORDS SUMMARY | 2025-02-01 16:55 | XMS_ITS | Patient Health Record ---
Author Organization [facility] Address [address] [place] [address] Care Team Providers Care Meringuer Name Role Phone Elizabeth GARRISON, Zaria Primary Care Provider Unavail able Marquise Kumar Unavailable [phone] Allergies Allergen (clinical drug ingredient) Drug/Non Drug Allergy documented on EMR Reaction Allergy Type Onset Date Status Shrimp Flavor swelling, itch Drug Allergy Active Shellfish (FN) Shellfish-derived Products swelling, itch Drug Allergy Active Results Component Value Reference Range Notes HEMOGLOBIN A1C (GLYCOHEMOGLO BIN) Reviewed date:10/10/2024 03:03:29 PM Interpretation: Performing Lab: Notes/Report: HEMOGLOBIN A1C % (HH) 6.4 Reason For Referral No Information Medications Medication SIG (Take, Route, Frequency, Duration) Notes Start Date End Date Status Fish Oil Active Tylenol Active Gabapentin Active Plavix Active Pravastatin Sodium A ctive Baby Aspirin Active Trulicity Active Benicar Active Toujeo SoloStar Acti ve Isosorbide Mononitrate Active Extra Depth Orthopedic Shoes (1 Pair) with Customized Heat Molded Multidensity Innersoles (3 Pair) as directed Dx: IDDM/Polyneuropathy (E10.42), Hammertoe Foot Deformity (M20.41,M20.42), Preulcerative Skin Lesion(s) (L85.1) Active Lisinopril 40 MG Orally Act samara Multivitamins Active [place]-3 Active Vit Balanced B-100 A ctive HumaLOG Active Ciclopirox Olamine 0.77 % 1 application Externally Twice a day; Duration: 30 days Active Immunizations Vaccine Route Administration Date Status Comme nts Influenza Unknown 02/14/2015 Administered Influenza Unknown 01/20/2017 Administered Influenza Unknown 12/17/2017 Administered Influenza Unknown 01/27/2022 Administered Influenza Unknown 12/28/2023 Administered Pneumococcal Unknown 01/20/2017 Administered COVID-19 Pfizer BioNTech Vaccine Unknown 11/04/2021 Administered 06/04/2020, 06/18/2020 11/18/2020 Social History Tobacco Use: Social History Observation [...] Problem Acquired hammer toe of right foot (5914273767086075 ) Other hammer toe(s) (acquired), right foot (M20.41) Active confirmed Response to treatment, Improvemen t Problem Acquired hammer toe of left foot (6953638213751674 ) Other hammer toe(s) (acquired), left foot (M20.42) Active confirmed Response to treatment, Improvemen t Problem Polyneuropathy due to diabetes mellitus type I (223325859) Type 1 diabetes mellitus with diabetic polyneuropathy (E10.42) Active confirmed Vital Signs Blood pressure diastolic 65 mm Hg 10/10/2024 Height 5 ft 6 in in 10/10/2024 Blood pressure systolic 128 mm Hg 10/10/2024 Weight 175 lbs 10/10/2024 BMI 28.24 kg/m2 10/10/2024 Procedures Procedure Date Ordered Date Performed Result Body Sit e 23446- Debride <25 sq cm 02/22/2024 N/A 70178-JWMXWYZ NAIL, 6 OR MORE 04/04/2024 N/A 94913-USRP SKIN LESIONS, OVER 4 04/04/2024 N/A 02022-EUHFTMM NAIL, 6 OR MORE 07/04/2024 N/A 64365-IKPC SKIN LESIONS, OVER 4 07/04/2024 N/A 46825-QIRITYO NAIL, 6 OR MORE 10/10/2024 N/A 50447-FHEL SKIN LESIONS, OVER 4 10/10/2024 N/A Encounters Encounter Location Date Provider Diagnosis [address] [address] 02/22/2024 Marquise Kumar Cellulitis of toe of left foot L03.032 ; Skin ulcer of toe of left foot, limited to breakdown of skin L97.521 and Type 1 diabetes mellitus with diabetic polyneuropathy E10.[address] [address] 04/04/2024 Marquise Stacy Type 1 diabetes mellitus with diabetic polyneuropathy E10.42 ; Skin ulcer of toe of left foot, limited to breakdown of skin L97.521 and Tinea unguium B35.[address] [address] 07/04/2024 Marquise Kumar Type 1 diabetes mellitus with diabetic polyneuropathy E10.42 ; Tinea unguium B35.1 ; Other hammer toe(s) (acquired), right foot M20.41 and Other hammer toe(s) (acquired), left foot M20.[address] [address] 10/10/2024 Marquiseclovis Kumar Type 1 diabetes mellitus with [...] E10.42) 07/04/2024 Tinea unguium (ICD-10 - B35.1) 10/10/2024 Type 1 diabetes mellitus with diabetic polyneuropathy (ICD-10 - E10.42) 10/10/2024 Tinea unguium (ICD-10 - B35.1) 07/04/2024 Other hammer toe(s) (acquired), right foot (ICD-10 - M20.41) Patient Educated with: DIABETIC FOOT CARE INSTRUCTIONS. pdf (DIABETIC FOOT CARE INSTRUCTIONS. pdf) 02/22/2024 Type 1 diabetes mellitus with diabetic polyneuropathy (ICD-10 - E10.42) 04/04/2024 Tinea unguium (ICD-10 - B35.1) 07/04/2024 Other hammer toe(s) (acquired), left foot (ICD-10 - M20.42) 02/22/2024 Other Plan Of Treatment Pending Test Test Name Order Date Hemoglobin A1c 03/05/2015 00604-GFEOOPN NAIL, 6 OR MORE 03/05/2015 74830-GUUDODT NAIL, 6 OR MORE 06/04/2015 62181-EXCZIEQ NAIL, 6 OR MORE 12/04/2014 57791-DAYTWAJ NAIL, 6 OR MORE 11/07/2013 91109-QKREFHZ NAIL, 6 OR MORE 02/13/2014 75385-MEMRWGD NAIL, 6 OR MORE 05/25/2014 11134-XSYYGVB NAIL, 6 OR MORE 08/24/2014 57467-XVBQXGY NAIL, 6 OR MORE 02/16/2012 91814-KTMTKGQ NAIL, 6 OR MORE 05/03/2012 07075-HUZGJMI NAIL, 6 OR MORE 08/02/2012 08954-HLZJEXP NAIL, 6 OR MORE 11/11/2012 22939-DDXVSNX NAIL, 6 OR MORE 02/14/2013 10938-PHJTCEW NAIL, 6 OR MORE 05/23/2013 74170-LBGCUYY NAIL, 6 OR MORE 08/22/2013 34491-YFXPUXU NAIL, 6 OR MORE 09/03/2015 84304-RQDMIXZ NAIL, 6 OR MORE 12/03/2015 67289-ZRGARHF NAIL, 6 OR MORE 03/03/2016 34035-LTDTNSO NAIL, 6 OR MORE 06/02/2016 81642-IOFKBDX NAIL, 6 OR MORE 09/01/2016 24277-KKFSAIF NAIL, 6 OR MORE 12/04/2016 44889-JOFAYTN NAIL, 6 OR MORE 03/09/2017 90809-FKZTWQI NAIL, 6 OR MORE 06/15/2017 81677-OCZMCGE NAIL, 6 OR MORE 09/14/2017 07471-WIKPPJL NAIL, 6 OR MORE 12/21/2017 30945-UNCDGEV NAIL, 6 OR MORE 04/05/2018 92181-HIEHVML NAIL, 6 OR MORE 07/05/2018 73704-OHZHPEP NAIL, 6 OR MORE 10/11/2018 83265-NSQBPBT NAIL, 6 OR MORE 01/10/2019 19273-CGXGBSV NAIL, 6 OR MORE 04/18/2019 38708-NSELINB NAIL, 6 OR MORE 07/21/2019 62882-AFAYBEO NAIL, 6 OR MORE 11/21/2019 67671-MMKAGWK NAIL, 6 OR MORE 02/27/2020 56963-IXHCZDN NAIL, 6 OR MORE 06/25/2020 75795-JAFXMAU NAIL, 6 OR MORE 10/01/2020 06674-AKCAEKG NAIL, 6 OR MORE 12/24/2020 79466-HKKYLRE NAIL, 6 OR MORE 03/04/2021 71687-FDCCKAX NAIL, 6 OR MORE 05/20/2021 09290-HEVJGPC NAIL, 6 OR MORE 07/22/2021 19086-GOINZGR NAIL, 6 OR MORE 09/23/2021 57051-VHJNFJO NAIL, 6 OR MORE 12/02/2021 52990-BBASEQZ NAIL, 6 OR MORE 02/24/2022 26839-UZIAEXG NAIL, 6 OR MORE 05/12/2022 56482-LKFSEDB NAIL, 6 OR MORE 07/14/2022 87772-MBIFZKG NAIL, 6 OR MORE 09/25/2022 71944-GKUJRHX NAIL, 6 OR MORE 12/22/2022 59424-MNUXTGZ NAIL, 6 OR MORE 03/19/2023 02546-JJGNPRB NAIL, 6 OR MORE 06/01/2023 33609-JLYOMVQ NAIL, 6 OR MORE 10/05/2023 64258-DOGABRS NAIL, 6 OR MORE 12/28/2023 71263-HSICIML NAIL, 6 OR MORE 04/04/2024 32813-DGCOUJM NAIL, 6 OR MORE 07/04/2024 78220-DYATCVE NAIL, 6 OR MORE 10/10/2024 22318-Gxyx Destruction, 1-14 08/22/2013 44151-Oeuj Destruction, 1-14 02/14/2013 28467-Egah Destruction, 1-14 05/23/2013 02218-Ytis Destruction, 1-14 08/24/2014 97774-Bwbv Destruction, 1-14 05/25/2014 72611-Pwrw Destruction, 1-14 02/13/2014 23611-Xyvh Destruction, 1-14 11/07/2013 04434-Ahha Destruction, 1-14 12/04/2014 56805-Ulwz Destruction, 1-14 03/05/2015 33626- Debride <25 sq cm 02/22/2024 80613- Debride <25 sq cm 06/23/2022 16163- Debride <25 sq cm 03/10/2022 62456-YMZIMND SKIN/TISSUE 02/01/2024 14118 I&D ABSCESS- SIMPLE,SINGLE 022 24143-FVGX SKIN LESIONS, OVER 4 05/12/19 23 58081-ETVI SKIN LESIONS, OVER 4 02/25/20 22 78483-GGRA SKIN LESIONS, OVER 4 12/03/19 22 58600-XJXN SKIN LESIONS, OVER 4 03/19/20 23 70288-JNRC SKIN LESIONS, OVER 4 12/23/19 23 47595-YQAF SKIN LESIONS, OVER 4 09/26/19 23 28667-SDDW SKIN LESIONS, OVER 4 07/15/19 23 71104-ZCHQ SKIN LESIONS, OVER 4 09/24/19 22 60172-GHUS SKIN LESIONS, OVER 4 07/23/19 22 82116-VRJX SKIN LESIONS, OVER 4 05/20/19 22 50008-HBIC SKIN LESIONS, OVER 4 03/04/20 21 99344-CWCI SKIN LESIONS, OVER 4 12/25/19 21 10415-SKXE SKIN LESIONS, OVER 4 10/02/19 21 82199-PIRC SKIN LESIONS, OVER 4 06/26/19 21 76641-ZNSS SKIN LESIONS, OVER 4 02/27/20 20 00939-PXWH SKIN LESIONS, OVER 4 12/28/19 24 70382-KBKJ SKIN LESIONS, OVER 4 10/05/19 24 03918-UQID SKIN LESIONS, OVER 4 06/01/19 24 44710-XCDH SKIN LESIONS, OVER 4 10/11/19 25 01215-KTET SKIN LESIONS, OVER 4 04/08/20 25 47391-CZFF SKIN LESIONS, OVER 4 04/04/19 25 09944-YKER SKIN LESIONS, OVER 4 12/05/19 15 62182-OKGC SKIN LESIONS, OVER 4 06/04/19 16 82557-WCTD SKIN LESIONS, OVER 4 03/05/20 15 28184-ENLI SKIN LESIONS, OVER 4 02/14/20 14 48784-GVSY SKIN LESIONS, OVER 4 05/25/19 15 25221-ZNJG SKIN LESIONS, OVER 4 08/25/19 15 41023-OICW SKIN LESIONS, OVER 4 11/21/19 20 54734-YLQS SKIN LESIONS, OVER 4 07/21/19 20 79558-JJGP SKIN LESIONS, OVER 4 04/18/19 20 06182-NKNH SKIN LESIONS, OVER 4 01/11/20 19 78059-QIVZ SKIN LESIONS, OVER 4 10/12/19 19 45422-KHGP SKIN LESIONS, OVER 4 07/06/19 19 00849-TSII SKIN LESIONS, OVER 4 04/05/19 19 75922-WYLY SKIN LESIONS, OVER 4 12/22/19 18 56789-CTKK SKIN LESIONS, OVER 4 09/15/19 18 71321-LHKQ SKIN LESIONS, OVER 4 06/16/19 18 13393-JTIT SKIN LESIONS, OVER 4 03/09/20 17 04717-RTST SKIN LESIONS, OVER 4 12/05/19 17 19932-UKXR SKIN LESIONS, OVER 4 06/03/19 17 55581-SFKV SKIN LESIONS, OVER 4 09/02/19 17 00421-AFVS SKIN LESIONS, OVER 4 03/03/20 16 84851-WYNF SKIN LESIONS, OVER 4 12/03/19 16 55683-KOUU SKIN LESIONS, OVER 4 09/03/19 16 88599-YRVI SKIN LESIONS, 2 TO 4 11/08/19 14 08117-BEYF SKIN LESIONS, 2 TO 4 02/16/20 12 14981-FONF SKIN LESIONS, 2 TO 4 11/12/19 13 84430-BYIJ SKIN LESIONS, 2 TO 4 02/15/20 13 41352-VNDK SKIN LESIONS, 2 TO 4 08/23/19 14 74393-CCKV SKIN LESIONS, 2 TO 4 05/23/19 14 33527-WADC SKIN LESIONS, 2 TO 4 08/03/19 13 71028-RRZL SKIN LESIONS, 2 TO 4 05/03/19 13 13410-EXCL SKIN LESIONS, 2 TO 4 12/31/19 11 75352-DSRO SKIN LESIONS, 2 TO 4 05/12/19 12 S4892-VUWLDAGW DYSTROPHIC NAILS ANY # R8396-KTHFAJAD DYSTROPHIC NAILS ANY # Next Appt Details Provider Name:Marquise Kumar , 03/09/2025 01:00:00 PM, [address] [place], [address], Insurance Providers Payer Name Payer Address Payer Phone Subscriber Number Group Number Insured Name Patient Relationship to Insured Coverage Start Date Coverage End Date Medicare [facility] [address] [place] [address] [id number] Shane Bueno Self - patient is the insured [id number] [address] [place] [address] [id number] Shane Bueno Self - patient is the insured Medical (General) History Medical History History ICD Code chicken pox back, hip, knee pain cholesterol hypertension type II diabetes Multiple sclerosis Surgical History Surgery Date(Month/Year) ear surgery heart surgery stent insertion 2008 Hospitalization History Reason Date(Month/Year) [facility] [place]- toe issues 01/28/24
== END 2025-02-01 14:55 | disposition home or self-care (01) ==
LOC: HO.HMCH 13:55
PROVIDERS: PCP Internal Medicine; Visit Provider Internal Medicine
DX: E11.69 Type 2 diabetes mellitus with other specified complication (principal); Z79.4 Long term (current) use of insulin; F33.0 Major depressive disorder, recurrent, mild; I10 Essential (primary) hypertension; E78.5 Hyperlipidemia, unspecified; Z23 Encounter for immunization

== ENCOUNTER → 2025-02-01 13:54 | Outpatient (BNVA) | payer MEDICARE, OTHER, SELFPAY | PROVIDERS: PCP Internal Medicine; Visit Provider Internal Medicine | DX: I10 Essential (primary) hypertension (principal); F33.0 Major depressive disorder, recurrent, mild; E78.5 Hyperlipidemia, unspecified; E11.69 Type 2 diabetes mellitus with other specified complication; Z79.4 Long term (current) use of insulin; Z79.899 Other long term (current) drug therapy; Z23 Encounter for immunization | CPT/HCPCS: 83036; 90471; 90656; 90677; 99212 ==

== ENCOUNTER → 2025-02-15 15:33 | Outpatient (BNVA) | payer MEDICARE, OTHER, SELFPAY | PROVIDERS: PCP Internal Medicine | DX: Z01.30 Encounter for examination of blood pressure without abnormal findings (principal); I10 Essential (primary) hypertension; Z95.5 Presence of coronary angioplasty implant and graft | CPT/HCPCS: 99211 ==